=== PATIENT | male | born 1930 | race Caucasian/White ===

== ENCOUNTER 2017-03-02 09:16 | Observation (INO) | payer MEDICARE ==
[2017-03-02 09:55] LABS: #Eosinphils 0.1 thou/uL (0.0-0.7); #Lymphocytes 2.3 thou/uL (1.20-3.40); #Monocytes 0.7 thou/uL (0.11-0.59); #Neutrophils 5.7 thou/uL (1.40-6.50); %Basophils 0.1 % (0.0-1.0); %Eosinophils 0.8 % (0.0-10.0); %Monocytes 8.1 % (0.0-10.0); Hematocrit 37.8 % (42.0-52.0); Mean Platelet Volume 7.4 fL (7.4-10.4); Red Blood Cell (RBC) Count 4.03 mill/uL (4.70-6.10); White Blood Cell (WBC) Count 8.8 thou/uL (4.8-10.8)
[2017-03-02 10:06] LABS: Bilirubin Negative (Negative); Blood, Urine Moderate (Negative); Glucose, Urine (Dipstick) Negative (Negative); Ketone, Urine Negative (Negative); Nitrite Negative (Negative); Protein, Urine (Dipstick) Trace mg/dL (Neg-Trace); Urobilinogen 0.2 mg/dL (0.2-1.0)
[2017-03-02 10:09] LABS: Bacteria/HPF 1+ HPF (None Seen); Hyaline Casts/LPF 0-3 HYALINE CAST LPF (0-3 Hyaline); Squamous Epithelial 0-3 HPF (0-3)
[2017-03-02 10:13] LABS: Lactic Acid - Sepsis 1.5 mmol/L (0.5-2.2)
[2017-03-02 10:17] LABS: ALT (SGPT) 10 U/L (8-55); AST (SGOT) 16 U/L (5-34); Alkaline Phosphatase 75 U/L (40-150); Anion Gap 13 mmol/L (10-20); BUN (Urea Nitrogen) 25 mg/dL (8.4-25.7); Bilirubin, Total 0.9 mg/dL (0.2-1.2); Calc. Creatinine Clearance 0 mL/min (70-130); Carbon Dioxide 23 mmol/L (23-31); Chloride 106 mmol/L (98-107); Estimated GFR-MDRD 35; Globulin 3.1 g/dL (2.4-3.5); Protein, Total 6.9 g/dL (5.8-8.1)
[2017-03-02 10:20] LABS: Yeast-All Forms None Seen HPF (None Seen)
--- NOTE | 2017-03-02 10:29 | RAD ---
CHEST 1 VIEW: Date: 03/02/17 HISTORY: Cough. COMPARISON: Chest 2 views dated 10/21/16. FINDINGS: Heart size is mildly enlarged. Mild prominence of the pulmonary interstitium. Moderate vascular calc ifications of the aorta. No pneumothorax or large effusion. IMPRESSION: Mild pulmonary venous congestion and lung hypoinflation. POS: [facility]
[2017-03-02 10:39] LABS: PTT 42.1 SEC (22.9-36.1); Prothrombin Time 30.3 SEC (12.0-14.7)
[2017-03-02 10:44] LABS: Troponin I 0.014 ng/mL (< 0.028)
[2017-03-02] MEDS ORDERED: cefTRIAXone\\ROCEPHIN 1 GM VIAL ONE (12:07)
[2017-03-02] MEDS ORDERED: Sodium Chloride 0.9% 100 ML ONE (12:07)
[2017-03-02] MEDS ORDERED: Azithromycin 500 MG VIAL ONE (12:50)
[2017-03-02 14:27] LABS: Troponin I Less than 0.010 ng/mL (< 0.028)
[2017-03-02 16:44] LABS: Troponin I 0.016 ng/mL (< 0.028)
[2017-03-02 17:28] VITALS: BMI 31.5
[2017-03-02] MEDS ORDERED: HumaLOG 300 UNITS/3 ML VIAL SC PRN ×2 (18:04)
[2017-03-02] MEDS ORDERED: Ondansetron ODT 4 MG TAB PO PRN (18:04)
[2017-03-02] MEDS ORDERED: Ondansetron HCl/PF 4 MG/2 ML Vial IVP PRN (18:04)
[2017-03-02] MEDS ORDERED: Dextrose 50% Abboject 50 ML SYRINGE SLOW IVP PRN (18:04)
[2017-03-02] MEDS ORDERED: Benzonatate 100 MG CAP PO PRN (18:04)
[2017-03-02] MEDS ORDERED: cloNIDine HCl 0.1 MG TAB PO PRN (18:04)
[2017-03-02] MEDS ORDERED: Dextrose 5% in Water 1,000 ML IV PRN (18:04)
[2017-03-02] MEDS ORDERED: Acetaminophen 500 MG TAB PO PRN (18:04)
[2017-03-02] MEDS ORDERED: FLU VACC TS2017-18 (>65YR) 0.5 ML SYRINGE IM ONE (18:15)
[2017-03-02] MEDS: Famotidine 20 MG TAB PO SCH (20:58)
[2017-03-02] MEDS: HYDROcodone/Acetaminophen 10/325 mg Tablet PO PRN (20:58)
--- NOTE | 2017-03-03 00:06 | HP ---
DATE OF ADMISSION: 03/02/2017 PRIMARY CARE PHYSICIAN: Dr. Kai Mackey. CHIEF COMPLAINT: Cough and shortness of breath. HISTORY OF PRESENT ILLNESS: This is an 87-year-old male, who presents to [facility] complaining of persistent cough, congestion, subjective fever and rigors over the last 2-3 weeks. The patient admits to increased cough, which is intermittently productive of yellow sputum with some associated neck pain when coughing. The patient does admit to some chest pain wit h the cough lasting only a few seconds during the cough. The patient states he was admitted in 09/16 and diagnosed with an acute bronchitis, treated with antibiotic therapy with improvement in symp toms. The patient denies any current tobacco use and states he quit smoking more than 10 years prio r to this evaluation. The patient denies receiving the influenza vaccination for this season and st ates his pneumonia vaccination is current. The patient denied any specific known sick contacts or f amily members with similar symptoms. The patient states he used several [id number] remedies a t home for relief; however, the coughing and congestion with subjective fever persisted. The patien t states the last time he felt this way he was diagnosed with pneumonia. The patient reports overal l general weakness, fatigue, and decreased exercise tolerance. In the emergency room, the patient u nderwent general evaluation including chest imaging showing pulmonary vascular prominence without ob vious infiltrate. The patient received IV Rocephin and Zithromax as well as 250 mL of normal saline . The patient was transferred to the telemetry unit for further evaluation. PAST MEDICAL HISTORY: 1. Cardiomyopathy with ejection fraction of 45% to 50%. 2. Chronic kidney disease, stage 3. 3. Diabetes mellitus, type 2. 4. History of gout. 5. Hypertension. 6. Chronic atrial fibrillation with chronic anticoagulation with Coumadin. 7. Coronary artery disease. 8. Diabetic peripheral neuropathy. 9. Gastroesophageal reflux disease. 10. Benign prosthetic hyperplasia. 11. Chronic low back pain. 12. Dyslipidemia. 13. History of bone cancer, status post chemotherapy. 14. History of deep venous thrombosis. PAST SURGICAL HISTORY: 1. Status post lumbar laminectomy. 2. Status post appendectomy. 3. Status post colon resection. 4. Status post coronary artery bypass grafting. 5. Status post shoulder repair. CURRENT MEDICATIONS: Based on previous discharge summary 09/2016. 1. Allopurinol 300 mg p.o. daily. 2. Enteric coated aspirin 81 mg 1 tab p.o. daily. 3. Diazepam 10 mg p.o. at bedtime. 4. Colace 200 mg p.o. b.i.d. 5. Proscar 5 mg p.o. at bedtime. 6. Lasix 40 mg 1 tab p.o. daily. 7. Gabapentin 600 mg p.o. b.i.d. 8. [place] 5/325 mg 1 tab p.o. q.6 hours p.r.n. pain. 9. Protonix 40 mg 1 tab p.o. daily. 10. Crestor 10 mg p.o. at bedtime. 11. Flomax 0.4 mg p.o. at bedtime. 12. Coenzyme Q10 of 100 mg p.o. at bedtime. 13. Coumadin 2.5 mg daily. We will confirm with the patient and family exact schedule. 14. Glucotrol 5 mg 1 tablet p.o. daily. ALLERGIES: SULFA. FAMILY HISTORY: No inheritable diseases per patient report. SOCIAL HISTORY: The patient is , accompanied by his of 63 years. Resides in the [facility]. Formerly used tobacco, quitting more than 10 years prior to this evaluation. No alcohol or illicit drug use. REVIEW OF SYSTEMS: The following complete review of systems was negative, unless otherwise mentione d in the HPI or below: Constitutional: Weight loss or gain, ability to conduct usual activities. Skin: Rash, itching. Eyes: Double vision, pain. ENT/Mouth: Nose bleeding, neck stiffness, pain, tenderness. Cardiovascular: Palpitations, dyspnea on exertion, orthopnea. Respiratory: Shortness of breath, wheezing, cough, hemoptysis, fever or night sweats. Gastrointestinal: Poor appetite, abdominal pain, heartburn, nausea, vomiting, constipation, or diar lorraine. Genitourinary: Urgency, frequency, dysuria, nocturia. Musculoskeletal: Pain, swelling. Neurologic/Psychiatric: Anxiety, depression. Allergy/Immunologic: Skin rash, bleeding tendency. PHYSICAL EXAMINATION: VITAL SIGNS: On admission, blood pressure 106/56, pulse 73, respiratory rate 18, temperature 97.8 degrees Fahrenheit, O2 saturation 97% on 2 liters per minute by nasal cannula. GENERAL APPEARANCE: This is an 87-year-old male, appearing younger than stated age. Aler t and oriented x3, pleasant, in no acute distress. HEENT: Pupils are equal, round, and reactive to light and accommodation. Extraocular muscles are i ntact. No scleral icterus, no conjunctival injection. Nares patent. OP is clear. NECK: Supple, no cervical adenopathy, no thyromegaly, no carotid bruits, no JVD appreciated. Cervi parag spine with full active and passive range of motion. CHEST: Lungs sound diminished in the bases bilaterally. CARDIOVASCULAR: S1, S2 with irregular rate and rhythm. ABDOMEN: Obese, soft, nontender, nondistended. Bowel sounds are positive in all four quadrants. T here is no hepatosplenomegaly, no abdominal bruits, no rebound or guarding appreciated. EXTREMITIES: Warm and dry with fair turgor. No clubbing, cyanosis or asymmetric edema appreciated. Pulses palpable distally at the dorsalis pedis, posterior tibial, and popliteal arteries bilateral ly. Capillary refill less than 2 seconds. NEUROLOGIC: Cranial nerves II-XII are grossly intact. No focal or lateralizing signs appreciated. PERTINENT LABORATORY AND X-RAY FINDINGS: Sodium 138, potassium 4.1, chloride 106, CO2 of 23, BUN 25 , creatinine 1.86 with estimated GFR of 35, glucose 114, lactic acid level 1.5, calcium 9.0, magnesi um 2.1. LFTs within normal limits. BNP 264, troponin I negative x2. CBC showed a white blood cell count of 8.8, hemoglobin 12.6, hematocrit 37.8, platelet count 131 with normal differential. PT 30 .3, INR 2.8. Urinalysis dated 03/02/2017 showed moderate blood, large leukocyte esterase with great er than 50 to too numerous to count wbc's per high powered field. Influenza A and B antigen dated 1 negative. Portable chest x-ray dated 03/02/2017 showed mild pulmonary vascular prominence and hypoventilation. EKG dated 03/02/2017 by my interpretation shows atrial fibrillation with cont rolled rate. Low voltage tracing noted. Normal axis. No acute ST-T wave changes appreciated. ASSESSMENT AND PLAN: 1. Acute bronchitis with questionable early pneumonia. The patient will be observed on the telemet ry unit. No clear evidence of infiltrate on initial chest imaging. We will continue Rocephin 1 gra m IV q.24 hours with additional Zithromax 500 mg IV q.24 hours. Blood cultures x2 pending. Broncho dilator support. Oxygen as needed to keep O2 saturations greater than or equal to 90%. 2. Chronic kidney disease, stage 3. Avoid nephrotoxic agents and contrast media. Repeat creatinin e and monitor overall renal function. 3. Diabetes mellitus, type 2. Resume home diabetic regimen. Insulin sliding scale for reflexive c overage. Accu-Cheks before meals and at bedtime. ADA diet. 4. Chronic atrial fibrillation with controlled rate on chronic Coumadin therapy. We will continue daily PT/INR. Continue to monitor on the telemetry unit. Hold current Coumadin given INR 2.8. 5. Prophylaxis. Sequential compression devices while in bed. Pepcid 20 mg p.o. b.i.d. Influenza vaccination prior to discharge. 6. Code status is FULL. Surrogate medical decision maker is patient's spouse.
[2017-03-03 06:28] LABS: Prothrombin Time 31.7 SEC (12.0-14.7)
[2017-03-03 06:46] LABS: Anion Gap 10 mmol/L (10-20); BUN (Urea Nitrogen) 23 mg/dL (8.4-25.7); Calc. Creatinine Clearance 44 mL/min (70-130); Calcium 8.6 mg/dL (7.8-10.44); Carbon Dioxide 27 mmol/L (23-31); Chloride 108 mmol/L (98-107); Estimated GFR-MDRD 38
[2017-03-03 06:54] LABS: Band 8 % (5-11); Mean Platelet Volume 7.7 fL (7.4-10.4); Neutrophil 41 % (42-75); Red Blood Cell (RBC) Count 3.36 mill/uL (4.70-6.10); White Blood Cell (WBC) Count 7.7 thou/uL (4.8-10.8)
[2017-03-03] MEDS: Famotidine 20 MG TAB PO SCH ×2 (09:55→21:41)
[2017-03-03] MEDS: HYDROcodone/Acetaminophen 10/325 mg Tablet PO PRN ×2 (10:03→21:41)
[2017-03-03] MEDS ORDERED: cefTRIAXone\\ROCEPHIN 1 GM in Sodium Chloride 0.9% 100 ML IVPB SCH (11:00)
[2017-03-03] MEDS: cefTRIAXone\\ROCEPHIN 1 GM, Admixture Fee 1 EACH in Sodium Chloride 0.9% 100 ML IVPB SCH (11:53)
--- NOTE | 2017-03-03 11:53 | PDOC.PN ---
- Subjective Encounter Start Date: 03/03/17 Encounter Start Time: 11:45 Subjective: f/u for suspected PNA and dyspnea. Feels a little better this am with -: productive cough. No documented fever. Receiving Rocephin and Zithromax - Objective Resuscitation Status: Resuscitation Status FULL:Full Resuscitation MAR Reviewed: Yes Vital Signs & Weight: Vital Signs (12 hours) Temp Pulse Resp BP Pulse Ox 03/03/17 09:25 97.6 F 85 18 03/03/17 05:55 98.6 F 99 112/58 L 98 Weight Weight 219 lb 12.814 oz I&O: 03/02/17 03/03/17 03/04/17 06:59 06:59 06:59 Intake Total 500 Output Total 620 Balance -120 Result Diagrams: 03/03/17 05:52 03/03/17 05:52 Additional Labs: Accuchecks 03/03/17 03/02/17 05:52 20:16 POC Glucose 97 166 H Microbiology 03/02/17 10:16 Nasal swab Influenza Types A,B Direct EIA - Final 03/02/17 09:48 Venous blood - Left Arm Blood Culture - Preliminary Specimen has been received and culture in progress. No Growth to date. 03/02/17 09:40 Venous blood - Right Arm Blood Culture - Preliminary Specimen has been received and culture in progress. No Growth to date. 03/02/17 09:28 Urine voided Urine Culture - Preliminary Laboratory Tests 03/02/17 03/03/17 09:48 05:52 INR 2.8 2.9 EKG Reviewed by me: Yes (Tele - A-fib in 60's) Phys Exam - Physical Examination Constitutional: NAD HEENT: PERRLA, oral pharynx no lesions Neck: no JVD, supple diminished in bases Cardiovascular: irregular Gastrointestinal: soft, non-tender, no distention, positive bowel sounds Musculoskeletal: no edema, pulses present Neurological: normal sensation, moves all 4 limbs Psychiatric: A&O x 3 Skin: normal turgor, cap refill <2 seconds Dx/Plan (1) Pneumonia Code(s): J18.9 - PNEUMONIA, UNSPECIFIED ORGANISM Status: Suspected Qualifiers: Laterality: bilateral Comment: suspected pneumonia(mild) with gm + cocci, continue Rocephin and Zithromax, blood cx neg x 2 (2) Acute bronchitis Code(s): J20.9 - ACUTE BRONCHITIS, UNSPECIFIED Status: Acute Qualifiers: Bronchitis organism: unspecified organism Qualified Code(s): J20.9 - Acute bronchitis, unspecified Comment: See above, supportive (3) Chronic anticoagulation Code(s): Z79.01 - RETIREMENT (CURRENT) USE OF ANTICOAGULANTS Status: Chronic Comment: INR 2.9, hold Coumadin x 24h and repeat INR in am (4) Chronic atrial fibrillation Code(s): I48.2 - CHRONIC ATRIAL FIBRILLATION Status: Chronic Comment: Rate controlled, continue tele monitoring (5) Diabetes type 2, controlled Code(s): E11.9 - TYPE 2 DIABETES MELLITUS WITHOUT COMPLICATIONS Status: Chronic Comment: ISS, serial accuchecks (6) CKD (chronic kidney disease) stage 3, GFR 30-59 ml/min Code(s): N18.3 - CHRONIC KIDNEY DISEASE, STAGE 3 (MODERATE) Status: Chronic Comment: Stable, baseline renal function, avoid nephrotoxic agents and limit contrast exposure - Plan plan discussed w/ family, continue antibiotics, social economist, respiratory therapy, out of bed/ambulate, DVT proph w/SCDs Stable overall -: Continue IV Rocephin and Zithromax another 24h -: Continue pulmonary supportive measures -: Hold Coumadin another 24h -: Update Pneumovax and Influenza vax * Am lab: PT/INR * Home in am
[2017-03-03] MEDS ORDERED: Azithromycin 500 MG in Sodium Chloride 0.9% 250 ML 250 ML IVPB SCH (12:00)
[2017-03-04] MEDS: HYDROcodone/Acetaminophen 10/325 mg Tablet PO PRN (05:59)
[2017-03-04 06:52] LABS: Prothrombin Time 21.9 SEC (12.0-14.7)
[2017-03-04 09:00] VITALS: BP 109/58; TEMP 97.5
[2017-03-04] MEDS: Famotidine 20 MG TAB PO SCH (09:00)
[2017-03-04] MEDS: cefTRIAXone\\ROCEPHIN 1 GM, Admixture Fee 1 EACH in Sodium Chloride 0.9% 100 ML IVPB SCH (12:51)
--- NOTE | 2017-03-04 15:23 | DIS ---
DATE OF ADMISSION: 03/02/2017 DATE OF DISCHARGE: 03/04/2017 DISCHARGE DIAGNOSES: 1. Question of early pneumonia/bronchitis with gram-positive cocci. 2. Urinary tract infection with Enterococcus. 3. Chronic atrial fibrillation with chronic anticoagulation with Coumadin. 4. Diabetes mellitus, type 2, stable. 5. Chronic kidney disease, stage 3. CONSULTATIONS: None. PERTINENT LAB AND X-RAY FINDINGS: Creatinine ranged between 1.71-1.86 with estimated GFR ranging be tween 35-38. Magnesium 2.1. LFTs within normal limits. BNP 264. CBC showed a white blood cell co unt ranging between 7.7-8.8, hemoglobin ranged between 10.6-12.6. INR ranged between 1.9-2.9. Urin e culture dated 03/02/2017 showed greater than 100,000 colonies of Enterococcus species. Blood cult ures x2 from 03/02/2017 showed no growth to date. Influenza A and B antigen, 03/02/2017, negative. Portable chest x-ray dated 03/02/2017 showed mild pulmonary venous prominence. HOSPITAL COURSE: Patient was observed after initially presenting with increased cough, shortness of breath, and concern for early pneumonia in the context of acute bronchitis. The patient was initia leanne on IV Rocephin and Zithromax and given general oxygen supplementation. The patient was also not ed with a urine culture positive for Enterococcus species, treated throughout the hospital course wi th Rocephin and Zithromax. The patient overall remained clinically stable and improved symptomatica lly with supportive measures. The patient transitioned and was maintaining O2 saturations in the mi d 90% range on room air without oxygen requirement. Overall, patient remained clinically stable thr oughout the hospital course and ready for discharge on 03/04/2017. DISCHARGE MEDICATIONS: 1. Allopurinol 300 mg one tablet p.o. daily. 2. Enteric-coated aspirin 81 mg 1 tab p.o. daily. 3. Valium 10 mg p.o. at bedtime p.r.n. 4. Colace 200 mg 1 tablet p.o. b.i.d. 5. Finasteride 5 mg p.o. at bedtime. 6. Lasix 40 mg 1 tablet p.o. daily. 7. Gabapentin 600 mg p.o. b.i.d. 8. [place] 10/325 mg 1 tablet p.o. q.6 hours p.r.n. pain. 9. Levaquin 250 mg 1 tablet p.o. daily x7 days. 10. Protonix 40 mg 1 tablet p.o. daily. 11. Crestor 10 mg p.o. at bedtime. 12. Flomax 0.4 mg p.o. at bedtime. 13. Coenzyme Q10 100 mg p.o. at bedtime. 14. Coumadin 5 mg on Thursday and Thursday and 2.5 mg on Thursday, Thursday, , Thursday, and . 15. Glipizide 5 mg 1 tablet p.o. daily. 16. Mucinex 600 mg p.o. q.12 hours p.r.n. FOLLOWUP: Patient will follow up with his primary care provider, Dr. Kai Mackey within 7 days of discharge. CONDITION ON DISCHARGE: Stable. ACTIVITY: Ad elly. DIET: Heart healthy and ADA. CODE STATUS: Full. DISPOSITION: Home, 03/04/2017.
== END 2017-03-04 11:39 | disposition home or self-care (01) ==
LOC: ERS 09:16 → 2NO 13:42
PROVIDERS: ADMIT Family Medicine; ATTEND Family Medicine
DX: R05 Cough (principal); R06.02 Shortness of breath; N39.0 Urinary tract infection, site not specified; B95.2 Enterococcus as the cause of diseases classified elsewhere; E11.22 Type 2 diabetes mellitus with diabetic chronic kidney disease; I12.9 Hypertensive chronic kidney disease with stage 1 through stage 4 chronic kidney disease, or unspecified chronic kidney disease; N18.3 Chronic kidney disease, stage 3 (moderate); I42.9 Cardiomyopathy, unspecified; M10.9 Gout, unspecified; I48.2 Chronic atrial fibrillation; I25.10 Atherosclerotic heart disease of native coronary artery without angina pectoris; E11.42 Type 2 diabetes mellitus with diabetic polyneuropathy; K21.9 Gastro-esophageal reflux disease without esophagitis; E78.5 Hyperlipidemia, unspecified; Z88.2 Allergy status to sulfonamides; Z79.01 Long term (current) use of anticoagulants; Z79.899 Other long term (current) drug therapy; Z90.49 Acquired absence of other specified parts of digestive tract; Z95.1 Presence of aortocoronary bypass graft; Z98.890 Other specified postprocedural states; Z92.3 Personal history of irradiation
CPT/HCPCS: 71010; 80048; 80053; 82553; 82962 ×3; 83605; 83735; 83880; 84484 ×2; 85007; 85025; 85027; 85610 ×3; 85730; 87040; 87077; 87086; 87186; 87804 ×2; 93005; 96365; 96367; 96376; 99285; G0378; 36415; 36416; 81003; 81015; J0456; J0696; J7050

== ENCOUNTER 2017-05-01 07:38 | Outpatient (CLI) | payer MEDICARE ==
--- NOTE | 2017-05-01 10:34 | ULT ---
BILATERAL RENAL ULTRASOUND: Date: 05/01/17 HISTORY: Urinary tract infection. Neurogenic bladder. COMPARISON: None. FINDINGS: Right kidney measures 9.4 x 5.3 x 5.2 cm. Left kidney measures 8.9 x 4.8 x 5.2 cm. There are bilateral renal cysts. Right interpolar cyst extending to the renal sinus fat is 3.3 cm. In the superior pole of the left kidney is a 3.6 cm cyst and in the inferior pole of the left kidney is a 2.4 cm cyst. The bladder wall is mildly trabeculated. The pre-void urinary volume in the bladder is 153 mL and pos t-void is 113 mL. No hydronephrosis or abnormal mass. IMPRESSION: 1. Bilateral renal cysts. 2. Small bilateral kidneys suggest medical renal disease. 3. Poor voiding of the urinary bladder. 4. Likely enlarged prostate. POS: [facility]
== END 2017-05-01 07:39 | disposition home or self-care (01) ==
LOC: ULT 07:38
PROVIDERS: ATTEND Urology
DX: N39.0 Urinary tract infection, site not specified (principal); N28.1 Cyst of kidney, acquired
CPT/HCPCS: 76770

== ENCOUNTER 2017-06-27 10:16 | Emergency (ER) | payer MEDICARE ==
--- NOTE | 2017-06-27 11:25 | RAD ---
PORTABLE AP CHEST: Date: 06/27/17 HISTORY: Dyspnea. Shaking. Runny nose and congestion. COMPARISON: 03/02/17. FINDINGS: Postsurgical changes related to CABG are noted. Cardiac silhouette is magnified by projection, but is enlarged. There is mild atelectasis at the left lung base. The lungs are otherwise clear. Pulmonary vasculature is within normal limits. Vascular calcifications are seen in the thoracic aorta. There samuels s been no interval change from prior exam. IMPRESSION: 1. No acute cardiopulmonary process. 2. Mild cardiomegaly. POS: [facility]
[2017-06-27 11:36] LABS: #Lymphocytes 2.5 thou/uL (1.20-3.40); #Monocytes 0.9 thou/uL (0.11-0.59); #Neutrophils 5.9 thou/uL (1.40-6.50); %Basophils 0.3 % (0.0-1.0); %Eosinophils 0.5 % (0.0-10.0); %Lymphocytes 26.4 % (21.0-51.0); %Monocytes 10.1 % (0.0-10.0); %Neutrophils 62.7 % (42.0-75.0); Hemoglobin 12.6 g/dL (14.0-18.0); Mean Corpuscular HGB CONC 34.8 g/dL (32.0-36.0); Mean Corpuscular Hemoglobin 31.5 pg (27.0-31.0); Mean Corpuscular Volume 90.4 fl (80.0-94.0); Mean Platelet Volume 8.2 fL (7.4-10.4); Platelet Count 140 thou/uL (130-400); RBC Distribution Width 15.1 % (11.5-14.5); White Blood Cell (WBC) Count 9.3 thou/uL (4.8-10.8)
[2017-06-27 12:00] LABS: ALT (SGPT) 9 U/L (8-55); AST (SGOT) 16 U/L (5-34); Alkaline Phosphatase 69 U/L (40-150); Anion Gap 15 mmol/L (10-20); BUN (Urea Nitrogen) 27 mg/dL (8.4-25.7); Bilirubin, Total 0.8 mg/dL (0.2-1.2); Calc. Creatinine Clearance 0 mL/min (70-130); Calcium 9.2 mg/dL (7.8-10.44); Carbon Dioxide 23 mmol/L (23-31); Chloride 105 mmol/L (98-107); Estimated GFR-MDRD 33; Globulin 3.1 g/dL (2.4-3.5); Glucose 120 mg/dL (83-110); Potassium 4.5 mmol/L (3.5-5.1); Protein, Total 7.1 g/dL (5.8-8.1); Sodium 138 mmol/L (136-145)
[2017-06-27] MEDS ORDERED: Acetaminophen 500 MG TAB ONE (12:54)
[2017-06-27] MEDS ORDERED: Ondansetron HCl/PF 4 MG/2 ML Vial ONE (12:54)
[2017-06-27 16:11] LABS: Bilirubin Small (Negative); Blood, Urine Negative (Negative); Clarity CLOUDY (Clear); Glucose, Urine (Dipstick) Negative (Negative); Leukocyte Moderate (Negative); Nitrite Negative (Negative); Protein, Urine (Dipstick) Negative (Neg-Trace); Specific Gravity, Urine 1.019 (1.002-1.036)
[2017-06-27 16:13] LABS: Bacteria/HPF 1+ HPF (None Seen); Hyaline Casts/LPF 0-3 HYALINE CAST LPF (0-3 Hyaline); Pathc Cast-AUWi Flag 0.13 (0-2.49); WBC/HPF 21-50 HPF (0-3)
== END 2017-06-27 17:06 | disposition home or self-care (01) ==
LOC: ERS 10:16
DX: B34.9 Viral infection, unspecified (principal); I48.91 Unspecified atrial fibrillation; I25.10 Atherosclerotic heart disease of native coronary artery without angina pectoris; E11.40 Type 2 diabetes mellitus with diabetic neuropathy, unspecified; K21.9 Gastro-esophageal reflux disease without esophagitis; N40.0 Benign prostatic hyperplasia without lower urinary tract symptoms; I50.9 Heart failure, unspecified; Z87.891 Personal history of nicotine dependence; Z86.718 Personal history of other venous thrombosis and embolism; Z79.899 Other long term (current) drug therapy; Z79.84 Long term (current) use of oral hypoglycemic drugs; Z79.82 Long term (current) use of aspirin
CPT/HCPCS: 36415; 71045; 80053; 81003; 81015; 82550; 83605; 85025; 87040; 87077; 87086; 87186; 87804; 94760; 96361; 96374; J2405

== ENCOUNTER 2017-12-15 05:47 | Day surgery (SDC) | payer MEDICARE ==
[2017-12-07 17:12] VITALS: BMI 30.7
[2017-12-15] MEDS ORDERED: Dexamethasone 4 mg/ml Vial ONE (06:31)
[2017-12-15] MEDS ORDERED: cefTRIAXone\\ROCEPHIN 1 GM VIAL ONE (06:31)
[2017-12-15] MEDS ORDERED: Sodium Chloride 0.9% 100 ML ONE (06:31)
[2017-12-15] MEDS ORDERED: Fentanyl 100 MCG/2 ML VIAL ONE (06:35)
[2017-12-15 06:45] LABS: Prothrombin Time 13.6 SEC (12.0-14.7)
[2017-12-15] MEDS ORDERED: Furosemide 20 MG/2 ML VIAL ONE (07:15)
[2017-12-15] MEDS ORDERED: B & O ONE (07:20)
[2017-12-15] MEDS ORDERED: Ondansetron HCl/PF 4 MG/2 ML Vial ONE (13:17)
[2017-12-15] MEDS ORDERED: PROPOFOL 200 MG/20 ML VIAL ONE (13:17)
[2017-12-15] MEDS ORDERED: PHENYLEPHRINE-NS 100 MCG/ML 10 ML SYRINGE ONE (13:17)
[2017-12-15] MEDS ORDERED: Lidocaine 1% PF 5 ML VIAL ONE (13:17)
--- NOTE | 2017-12-15 15:52 | OP ---
DATE OF PROCEDURE: 12/15/2017 PREOPERATIVE DIAGNOSES: Benign prostatic hypertrophy with urinary tract infections. POSTOPERATIVE DIAGNOSES: Benign prostatic hypertrophy with urinary tract infections. PROCEDURE: GreenLight laser vaporization of the prostate using 253,565 joules. COMPLICATIONS: No complications. SPECIMEN: Minimal prostate chips. ESTIMATED BLOOD LOSS: Minimal blood loss. DRAINS: Drain remaining was a 20-Micronesian 2-way. FINDINGS: Adequate stream and the scope was removed at the end of the case. INDICATIONS: The patient is an 87-year-old gentleman who was followed in the office for BPH, attempting maximum medical therapy; however, he had persistent UTIs and so was set up for definitive prostate therapy. PROCEDURE IN DETAIL: The patient was brought into the room by Anesthesia, laid on the table in supine position. After obtaining general anesthetic, his legs were placed in lithotomy position and his perineum was prepped and draped in sterile fashion. Using a 22.5 Micronesian cystoscope with 30-degree lens, urethra was traversed and the bladder inspected. The ureteral orifices were noted in normal position and preserved throughout the case. The middle lobe was not significantly obstructed, but the lateral lobes were, however, the middle lobe was still elevated somewhat and this was taken down to the bladder neck and then there was an elevated trigonal ridge that was also taken down to the bladder floor. A power of 80 was used to do this and a power of 80 was used in the lateral lobes at the bladder neck, but a power level of 180 was used for the mid gland where the lateral lobes were partially enucleated, but there was minimal tissue for sending and once this was taken all the way down to the veru , all the standing chips were removed and inspection was taken of the cellules in the posterior wall to ensure there were no further chips remaining there. With the bladder decompressed, hemostasis was achieved and a power of 80 was used in the prostatic bed for further hemostasis. The scope was removed and 20 Micronesian catheter was then placed to gravity and secured. The patient tolerated the procedure well and was then awakened and transferred to PACU in stable condition. [facility]
== END 2017-12-15 12:15 | disposition home or self-care (01) ==
LOC: SDC 05:47
PROVIDERS: ATTEND Urology
PROC: 0V507ZZ Destruction of Prostate, Via Natural or Artificial Opening (ICD-10-PCS; principal; 2017-12-15)
DX: N40.1 Benign prostatic hyperplasia with lower urinary tract symptoms (principal); R35.1 Nocturia; E11.9 Type 2 diabetes mellitus without complications; J44.9 Chronic obstructive pulmonary disease, unspecified; K21.9 Gastro-esophageal reflux disease without esophagitis; I11.0 Hypertensive heart disease with heart failure; I50.9 Heart failure, unspecified; I25.10 Atherosclerotic heart disease of native coronary artery without angina pectoris; E78.5 Hyperlipidemia, unspecified; Z87.440 Personal history of urinary (tract) infections; Z87.891 Personal history of nicotine dependence; Z88.2 Allergy status to sulfonamides; Z88.1 Allergy status to other antibiotic agents; Z79.82 Long term (current) use of aspirin; Z79.899 Other long term (current) drug therapy
CPT/HCPCS: 36415; 85610; 88305; 93005; 93010; J0696; J1100; J1940; J2001; J2405; J2704; J3010; J7050

== ENCOUNTER 2017-12-29 09:15 | Outpatient (CLI) | payer MEDICARE ==
[2017-12-29] MEDS ORDERED: ISOVUE-370 76%-LOCM 1 ML ONE (13:52)
== END 2017-12-29 09:16 | disposition home or self-care (01) ==
LOC: BICCT 09:15 → CT 09:16
PROVIDERS: ATTEND Family Medicine
DX: R91.8 Other nonspecific abnormal finding of lung field (principal); I51.7 Cardiomegaly
CPT/HCPCS: 71260

== ENCOUNTER 2018-02-25 09:45 | Outpatient (CLI) | payer MEDICARE ==
--- NOTE | 2018-02-25 13:18 | ULT ---
ABDOMINAL ULTRASOUND: HISTORY: Abdominal pain and renal failure. The patient also reports a history of bone marrow cancer. FINDINGS: This exam is technically limited due to body habitus. The gallbladder is difficult to visualize but appears normal in size. No signs of gallstones. Visualized liver parenchyma shows no focal abnormal ities. The common duct measures 3 mm. The spleen is partially obscured. It measures 13.5 cm in shanda gth. The left kidney shows cortical thinning. It measures 10.3 cm in size. There is an upper pole left r enal cyst measuring 3.8 cm. The right kidney also shows a cyst measuring 3.1 x 4.2 cm. There is als o cortical thinning to the right kidney. It measures 9 cm. Some increased echogenicity to the renal parenchyma. Pancreas, abdominal aorta, and IVC regions are largely obscured. IMPRESSION: 1. Limited evaluation due to bowel gas and body habitus. 2. Bilateral renal cysts with cortical thinning involving both kidneys suggesting some increased ech ogenicity suggesting some underlying medical renal parenchymal disease. No evidence of obstruction. POS: RD
== END 2018-02-25 09:46 | disposition home or self-care (01) ==
LOC: ULT 09:45
PROVIDERS: ATTEND Internal Medicine Hematology & Oncology
DX: D47.2 Monoclonal gammopathy (principal); N28.1 Cyst of kidney, acquired
CPT/HCPCS: 76700

== ENCOUNTER 2018-03-12 12:41 | Outpatient (CLI) | payer MEDICARE ==
[~2018-03-12 12:41] MED LIST: Iopamidol 370 76% 100 ML VIAL ONE
--- NOTE | 2018-03-12 18:29 | CT ---
CT OF THE ABDOMEN AND PELVIS WITH CONTRAST: Comparison: None. History: Bloating with anemia and fatigue for months. Painful urination and hematuria. Technique: Multiple contiguous axial images were obtained in a CT of the abdomen and pelvis with cont rast. PO contrast was administered. Coronal reformats were performed. FINDINGS: There are hypodensities in the kidneys measuring up to 3.6 in size which represents cysts. The liver, gallbladder, adrenal glands, spleen and pancreas are unremarkable. No free air, free fluid, or stran ding changes are seen in the abdomen or pelvis. There appears to be defect in the prostate, likely from previous transurethral resection of the prost ate. Scattered diverticula are seen in the colon. The small bowel and appendix are unremarkable. No a bdominal or pelvic lymphadenopathy are seen. Atherosclerotic calcifications are seen in the aorta. Degenerative changes and post-surgical changes are seen in the lumbar spine. A calcified granuloma is seen in the right lung base. The abdominal wall soft tissues are unremarkable. IMPRESSION: 1. Bilateral renal cysts. 2. Diverticulosis. POS: [facility]
== END 2018-03-12 12:42 | disposition home or self-care (01) ==
LOC: BICCT 12:41
PROVIDERS: ATTEND Internal Medicine Gastroenterology
DX: R14.0 Abdominal distension (gaseous) (principal); R53.83 Other fatigue; R53.81 Other malaise; N28.1 Cyst of kidney, acquired; D50.0 Iron deficiency anemia secondary to blood loss (chronic); K57.30 Diverticulosis of large intestine without perforation or abscess without bleeding; Z86.010 Personal history of colon polyps
CPT/HCPCS: 74177; 82565

== ENCOUNTER 2018-03-12 19:10 | Emergency (ER) | payer MEDICARE ==
[2018-03-12 19:46] LABS: Bilirubin Negative (Negative); Blood, Urine Large (Negative); Clarity CLEAR (Clear); Glucose, Urine (Dipstick) Negative (Negative); Leukocyte Large (Negative); Nitrite Negative (Negative); Protein, Urine (Dipstick) 30 mg/dL (Neg-Trace); Specific Gravity, Urine 1.018 (1.002-1.036); pH, Urine 6.5 (5.0-9.0)
[2018-03-12 19:49] LABS: Bacteria/HPF None Seen HPF (None Seen); Hyaline Casts/LPF 0-3 HYALINE CAST LPF (0-3 Hyaline); Pathc Cast-AUWi Flag 0.14 (0-2.49); RBC/HPF GREATER THAN 50-TNTC HPF (0-3); Squamous Epithelial 0-3 HPF (0-3)
[2018-03-12 19:54] LABS: #Eosinphils 0.1 thou/uL (0.0-0.7); #Monocytes 0.7 thou/uL (0.11-0.59); #Neutrophils 2.4 thou/uL (1.40-6.50); %Basophils 0.2 % (0.0-1.0); %Lymphocytes 38.5 % (21.0-51.0); %Monocytes 13.1 % (0.0-10.0); %Neutrophils 47.2 % (42.0-75.0); Hemoglobin 10.8 g/dL (14.0-18.0); Mean Corpuscular HGB CONC 33.8 g/dL (32.0-36.0); Mean Corpuscular Hemoglobin 31.9 pg (27.0-31.0); Mean Corpuscular Volume 94.2 fL (78.0-98.0); Mean Platelet Volume 7.6 fL (7.4-10.4); Platelet Count 130 thou/uL (130-400); RBC Distribution Width 15.8 % (11.5-14.5); Red Blood Cell (RBC) Count 3.41 mill/uL (4.70-6.10); White Blood Cell (WBC) Count 5.1 thou/uL (4.8-10.8)
[2018-03-12 19:59] LABS: INR-International Normal Ratio 2.6; PTT 38.2 SEC (22.9-36.1); Prothrombin Time 28.2 SEC (12.0-14.7)
[2018-03-12 20:14] LABS: ALT (SGPT) 13 U/L (8-55); AST (SGOT) 20 U/L (5-34); Albumin 3.6 g/dL (3.4-4.8); Alkaline Phosphatase 76 U/L (40-150); Anion Gap 11 mmol/L (10-20); BUN (Urea Nitrogen) 27 mg/dL (8.4-25.7); Bilirubin, Total 0.9 mg/dL (0.2-1.2); Calc. Creatinine Clearance 0 mL/min (70-130); Calcium 8.7 mg/dL (7.8-10.44); Carbon Dioxide 27 mmol/L (23-31); Chloride 104 mmol/L (98-107); Estimated GFR-MDRD 38; Globulin 2.8 g/dL (2.4-3.5); Glucose 112 mg/dL (83-110); Potassium 4.2 mmol/L (3.5-5.1); Protein, Total 6.4 g/dL (5.8-8.1); Sodium 138 mmol/L (136-145)
== END 2018-03-12 21:16 | disposition home or self-care (01) ==
LOC: ERS 19:10
DX: N39.0 Urinary tract infection, site not specified (principal); I50.9 Heart failure, unspecified; I48.91 Unspecified atrial fibrillation; K21.9 Gastro-esophageal reflux disease without esophagitis; Z86.718 Personal history of other venous thrombosis and embolism; Z79.01 Long term (current) use of anticoagulants; Z87.891 Personal history of nicotine dependence; Z79.82 Long term (current) use of aspirin; Z79.899 Other long term (current) drug therapy
CPT/HCPCS: 36415; 74177; 80053; 81001; 81015; 82565; 85025; 85610; 85730; 87086; 99283

== ENCOUNTER 2018-03-31 11:18 | Emergency (ER) | payer MEDICARE ==
[2018-03-31 12:04] LABS: #Lymphocytes 2.5 thou/uL (1.20-3.40); #Monocytes 0.6 thou/uL (0.11-0.59); #Neutrophils 2.1 thou/uL (1.40-6.50); %Basophils 0.4 % (0.0-1.0); %Eosinophils 0.9 % (0.0-10.0); %Lymphocytes 47.6 % (21.0-51.0); %Neutrophils 40.2 % (42.0-75.0); Hemoglobin 10.8 g/dL (14.0-18.0); Mean Corpuscular HGB CONC 32.9 g/dL (32.0-36.0); Mean Corpuscular Hemoglobin 32.2 pg (27.0-31.0); Mean Corpuscular Volume 98.2 fL (78.0-98.0); Mean Platelet Volume 8.1 fL (7.4-10.4); Platelet Count 137 thou/uL (130-400); RBC Distribution Width 16.4 % (11.5-14.5); Red Blood Cell (RBC) Count 3.36 mill/uL (4.70-6.10); White Blood Cell (WBC) Count 5.3 thou/uL (4.8-10.8)
[2018-03-31 12:11] LABS: PTT 37.9 SEC (22.9-36.1)
[2018-03-31 12:12] LABS: INR-International Normal Ratio 2.1; Prothrombin Time 23.4 SEC (12.0-14.7)
[2018-03-31 12:22] LABS: ALT (SGPT) 11 U/L (8-55); AST (SGOT) 17 U/L (5-34); Albumin 3.6 g/dL (3.4-4.8); Alkaline Phosphatase 71 U/L (40-150); Anion Gap 10 mmol/L (10-20); BUN (Urea Nitrogen) 28 mg/dL (8.4-25.7); Bilirubin, Total 0.8 mg/dL (0.2-1.2); Calc. Creatinine Clearance 0 mL/min (70-130); Calcium 8.6 mg/dL (7.8-10.44); Carbon Dioxide 28 mmol/L (23-31); Chloride 106 mmol/L (98-107); Estimated GFR-MDRD 32; Globulin 2.7 g/dL (2.4-3.5); Glucose 213 mg/dL (83-110); Potassium 4.2 mmol/L (3.5-5.1); Protein, Total 6.3 g/dL (5.8-8.1); Sodium 140 mmol/L (136-145)
--- NOTE | 2018-03-31 13:17 | ULT ---
RIGHT LOWER EXTREMITY VENOUS DOPPLER ULTRASOUND: 03/31/2018 HISTORY: Right lower extremity pain and swelling. Fall. Injury. COMPARISON: None. TECHNIQUE: Multiplanar estrada-scale sonographic imaging of the venous structures of the right lower extremity obta ined with color-flow and spectral analysis. FINDINGS: The right common femoral vein, greater saphenous vein, profunda femoral vein, femoral vein, and popli teal vein appear patent. The posterior tibial vein is patent as well. Please note that the distal-m ost aspect of the right femoral vein, just above the level of the knee, could not be assessed, as the femoral vein in this region cannot be visualized. Within the inferomedial aspect of the right thigh, there is a large heterogeneously hypoechoic lesion , suggesting a large hematoma within the soft tissues, measuring at least 8.1 x 7.2 x 3.5 cm. IMPRESSION: 1. No evidence for deep venous thrombosis of the right lower extremity; however, a portion of the ri ght femoral vein, distally, just above the knee, could not be assessed. 2. Large, complex, heterogeneously hypoechoic lesion within the medial aspect of the right thigh, wi thin the soft tissues. Primary consideration, given history, is a large soft tissue hematoma. Follo w-up imaging to document resolution is advised. This presumed hematoma measures at least 8.1 x 7.2 x 3.5 cm. Soft tissue mass cannot be excluded in the proper clinical setting. POS: [facility]
== END 2018-03-31 17:05 ==
LOC: ERS 11:18
DX: S70.11XA Contusion of right thigh, initial encounter (principal); E11.40 Type 2 diabetes mellitus with diabetic neuropathy, unspecified; K21.9 Gastro-esophageal reflux disease without esophagitis; N40.0 Benign prostatic hyperplasia without lower urinary tract symptoms; I48.91 Unspecified atrial fibrillation; I50.9 Heart failure, unspecified; Z87.891 Personal history of nicotine dependence; Z86.718 Personal history of other venous thrombosis and embolism; Z79.01 Long term (current) use of anticoagulants; Z79.899 Other long term (current) drug therapy; W19.XXXA Unspecified fall, initial encounter
CPT/HCPCS: 76882; 80053; 85025; 85610; 85730

== ENCOUNTER 2018-04-19 23:04 | Inpatient (IN) | payer MEDICARE ==
[2018-04-20 00:03] LABS: #Lymphocytes 2.2 thou/uL (1.20-3.40); #Monocytes 0.8 thou/uL (0.11-0.59); #Neutrophils 4.1 thou/uL (1.40-6.50); %Basophils 0.3 % (0.0-1.0); %Eosinophils 0.4 % (0.0-10.0); %Lymphocytes 31.2 % (21.0-51.0); %Monocytes 10.6 % (0.0-10.0); %Neutrophils 57.6 % (42.0-75.0); Hemoglobin 9.7 g/dL (14.0-18.0); Mean Corpuscular HGB CONC 34.3 g/dL (32.0-36.0); Mean Corpuscular Hemoglobin 33.5 pg (27.0-31.0); Mean Corpuscular Volume 97.8 fL (78.0-98.0); Platelet Count 152 thou/uL (130-400); RBC Distribution Width 16.5 % (11.5-14.5); White Blood Cell (WBC) Count 7.1 thou/uL (4.8-10.8)
[2018-04-20 00:22] LABS: ALT (SGPT) 14 U/L (8-55); AST (SGOT) 20 U/L (5-34); Albumin 3.3 g/dL (3.4-4.8); Alkaline Phosphatase 77 U/L (40-150); Anion Gap 11 mmol/L (10-20); BUN (Urea Nitrogen) 29 mg/dL (8.4-25.7); Bilirubin, Total 0.8 mg/dL (0.2-1.2); Calc. Creatinine Clearance 0 mL/min (70-130); Calcium 8.3 mg/dL (7.8-10.44); Carbon Dioxide 26 mmol/L (23-31); Chloride 107 mmol/L (98-107); Estimated GFR-MDRD 35; Globulin 2.8 g/dL (2.4-3.5); Glucose 103 mg/dL (83-110); Protein, Total 6.1 g/dL (5.8-8.1); Sodium 140 mmol/L (136-145)
[2018-04-20] MEDS ORDERED: Piperacillin/Tazobactam 4.5 GM VIAL ONE (00:39)
[2018-04-20 02:13] LABS: INR-International Normal Ratio 3.3; Prothrombin Time 33.6 SEC (12.0-14.7)
[2018-04-20 02:14] LABS: PTT 48.9 SEC (22.9-36.1)
[2018-04-20 06:01] LABS: Bilirubin Negative (Negative); Blood, Urine Moderate (Negative); Clarity CLEAR (Clear); Glucose, Urine (Dipstick) Negative (Negative); Leukocyte Small (Negative); Nitrite Negative (Negative); Protein, Urine (Dipstick) Negative (Neg-Trace); Specific Gravity, Urine 1.017 (1.002-1.036); pH, Urine 5.5 (5.0-9.0)
[2018-04-20 06:04] LABS: Bacteria/HPF None Seen HPF (None Seen); Hyaline Casts/LPF 0-3 HYALINE CAST LPF (0-3 Hyaline); Pathc Cast-AUWi Flag 0.29 (0-2.49); Squamous Epithelial 0-3 HPF (0-3)
[2018-04-20 06:16] LABS: Yeast-AUWi Flag 44.1 (0-25.0)
[2018-04-20 06:33] LABS: Yeast-All Forms None Seen HPF (None Seen)
[2018-04-20 07:44] VITALS: BMI 31.7
--- NOTE | 2018-04-20 07:52 | RAD ---
RIGHT FEMUR 2 VIEWS: HISTORY: Pain. COMPARISON: None. FINDINGS: No fracture. No cortical irregularity or periosteal reaction. Vascular calcifications are noted. IMPRESSION: No fracture. POS: [facility]
--- NOTE | 2018-04-20 08:13 | ULT ---
PRELIMINARY REPORT/[facility]/EMERGENTY AFTER-HOURS PROCEDURE Addendum created by Bc Calhoun MD on 04/20/2018 1:20 AM Central Time ([place] & [place]) THIS REPORT CONTAINS FINDINGS THAT MAY BE CRITICAL TO PATIENT CARE. The findings were verbally communicated via t elephone conference with Dr. Barriga at 1:20 AM ELECTRIC [employer]ATER on 04/20/2018. The findings were acknowledged and understood. Initial Report created on 04/20/2018 1:18 AM Central Time ([place] & [place]) US Bilateral Duplex Lower Extremity Veins EXAM DATE/TIME: 04/20/2018 12:23 AM CLINICAL HISTORY: 88 years old, male; Pain and signs and symptoms; Edema, localized; Lower extremity, bilateral; Leg, u pper; Right; Patient HX: PT fell one month ago and developed a large bruise on his inner right thigh. Additional info: HX; Previous dvt TECHNIQUE: Real-time duplex ultrasound of the Bilateral Lower Extremities with 2-D estrada scale, color Doppler cathie w and spectral waveform analysis. Complete exam focused on the bilateral lower extremity veins. COMPARISON: CT Lower Ext Rt WO Con 04/20/2018 12:10:35 AM FINDINGS: Right deep veins: Unremarkable. The common femoral, femoral and popliteal veins are patent without th rombus. Normal compressibility, augmentation response and Doppler waveforms. Right superficial veins: Saphenofemoral junction is patent without thrombus. Left deep veins: Partially compressible left proximal-mid left femoral vein with internal hypoechoic material consistent with thrombus. Left superficial veins: Saphenofemoral junction is patent without thrombus. Soft tissues: Hypoechoic 3.8 x 6 x 12.4 cm complex appearing fluid collection in medial right thigh s oft tissues. IMPRESSION: 1. Abnormal study - DVT in the left femoral vein as described above. 2. No evidence of deep venous thrombosis in the right lower extremity on current study. 3. Hypoechoic 3.8 x 6 x 12.4 cm complex appearing fluid collection in medial right thigh soft tissues . Consistent with suspected hematoma seen on prior study. Thank you for allowing us to participate in the care of your patient. Dictated and Authenticated by: Bc Calhoun MD 04/20/2018 1:18 AM Central Time ([place] & [place]) FINAL REPORT VENOUS DUPLEX SONOGRAM BILATERAL LOWER EXTREMITIES: DATE: 04/20/2018. TIME: Performed on an emergency basis at 0025 hours. HISTORY: Bilateral leg pain and edema. FINDINGS: Agree with the preliminary report by Dr. Cabezas from [facility]. DVT involves the left femor al vein. Good color and spectral Doppler flow within the deep venous structures of the right lower e xtremity. Complex fluid collection at the right medial thigh may represent a hematoma. POS: [facility]
--- NOTE | 2018-04-20 08:45 | RAD ---
SINGLE VIEW OF THE CHEST: Comparison: 06-27-17 History: Cough. FINDINGS: Single view of the chest shows an enlarged cardiomediastinal silhouette. The patient is status post C ABG. There is no evidence of consolidation, mass, or pleural effusion. IMPRESSION: Cardiomegaly without evidence of acute cardiopulmonary disease. POS: [facility]
--- NOTE | 2018-04-20 09:25 | CT ---
PRELIMINARY REPORT/[facility]/EMERGENTY AFTER-HOURS PROCEDURE CT Right Lower Extremity Without IV Contrast, Femur EXAM DATE/TIME: 04/20/2018 12:10 AM CLINICAL HISTORY: 88 years old, male; Pain and signs and symptoms; Swelling, leg or foot; Thigh; Right; Patient HX: Er 7; Possible necrotizing fasciitis; PT C/O RT lower extremity pain (thigh), redness and swelling. TECHNIQUE: CT of the Right lower extremity without intravenous contrast was performed. Exam focused on the femur . COMPARISON: No relevant prior studies available. FINDINGS: Bones/joints: Chronic degenerative changes of the right hip and knee. No evidence of acute fracture. Soft tissues: Ovoid 4 x 9 x 8 cm superior and 4.5 x 9 x 7 cm inferior hyperdense collections within t he medial mid-lower right thigh subcutaneous fat. Mild-moderate diffuse soft tissue swelling/edema. Vasculature: Chronic atherosclerotic calcification of the vasculature. IMPRESSION: 1. Ovoid 4 x 9 x 8 cm superior and 4.5 x 9 x 7 cm collections in medial right thigh subcutaneous fat as described above, suspected hematomas. 2. Mild-moderate diffuse soft tissue swelling/edema. No definite areas of air along the areas of black a. 3. No evidence of acute fracture. Thank you for allowing us to participate in the care of your patient. Dictated and Authenticated by: Bc Calhoun MD 04/20/2018 1:04 AM Central Time ([place] & [place]) FINAL REPORT CT OF THE RIGHT LEG WITHOUT COTNRAST: INDICATION: Right lower extremity pain, redness and swelling, concern for necrotizing fasciitis. FINDINGS: There is a large hyperdense hematoma suspected within the subcutaneous fat of the medial right thigh measuring 8.7 x 15.7 cm in its greatest AP and craniocaudad dimensions. Underlying mass within this region cannot be entirely excluded. Recommend correlation for any history of the patient being on bl ood thinners or trauma to this region. There is diffuse muscular atrophy of the right lower extremit y. There is reticulation involving the subcutaneous fat circumferentially of the mid to distal thigh . There is skin thickening involving the mid to distal thigh. No definite soft tissue gas is eviden t. There are vascular calcifications within the right leg. No acute osseous abnormality is evident. There is chondrocalcinosis and degenerative changes within the right knee. There is mild degenerat jake change of the right hip. There is prostate enlargement with bladder wall thickening. There is c olonic diverticulosis. IMPRESSION: 1. Findings most suspicious for hematoma within the subcutaneous tissues of the distal right thigh. Followup examination in 4-6 weeks with contrast may be helpful to document decrease in size and reso lution and also to exclude the presence of any underlying malignancy. 2. No tyson soft tissue gas is seen to suggest soft tissue infection. There is skin thickening and subcutaneous fat reticulation involving the mid to distal right thigh that is suspicious for either l ymphedema or cellulitis. 3. Scattered degenerative and osteoarthritic change. 4. Prostate enlargement with bladder wall thickening which can be related to cystitis or chronic siva dder outlet obstruction. 5. Colonic diverticulosis. POS: [facility]
[2018-04-20] MEDS ORDERED: hydrALAZINE 20 MG/ML VIAL SLOW IVP PRN (09:27)
[2018-04-20] MEDS ORDERED: traZODone HCl 50 MG TAB PO PRN (09:28)
[2018-04-20] MEDS ORDERED: Dextrose 5% in Water 1,000 ML IV PRN (09:30)
[2018-04-20] MEDS ORDERED: HumaLOG 300 UNITS/3 ML VIAL SC PRN ×2 (09:30)
[2018-04-20] MEDS ORDERED: Dextrose 50% Abboject 50 ML SYRINGE SLOW IVP PRN (09:30)
[2018-04-20] MEDS ORDERED: cefTRIAXone\\ROCEPHIN 1 GM in Sodium Chloride 0.9% 100 ML IVPB SCH (10:00)
[2018-04-20] MEDS ORDERED: VANCOMYCIN IVPB PRN (10:23)
[2018-04-20] MEDS: Acetaminophen 325 MG TAB PO PRN (10:37)
[2018-04-20] MEDS: Gabapentin 300 MG CAP PO SCH ×3 (15:15→21:30)
--- NOTE | 2018-04-20 15:32 | HP ---
PRIMARY CARE PHYSICIAN: Dr. Mackey. CHIEF COMPLAINT: Swelling in the right leg and fever. HISTORY OF PRESENT ILLNESS: Mr. Topete is a pleasant 88-year-old gentleman, who suffered an injury to his right leg recently, where he was leaning to grab something and then fell and injured his leg. He is on chronic anticoagulation due to previous pulmonary embolism and suffered a massive hematoma on the right leg as a result of the fall. He was placed in rehab and was treated. He had his Coumadin held for several days due to the hematoma and slowly improved over time. He was able to be released from rehab on or around the 10 of April and had gone home. When he suddenly started having swelling in the right lower extremity as well as shaking chills, the patient went to see their primary care physician and there was noted more firmness or induration on the right lower extremity and a low-grade temperature around 99, and for this reason, he was sent in to the ER for further evaluation. In the ER, they did a bilateral lower extremity venous Doppler and it showed findings consistent with a hematoma in the right leg as well as an acute partially occlusive deep vein thrombosis in the left leg and concerned for possible cellulitis of the right lower extremity, and he is being admitted for further treatment. The patient otherwise has stable shortness of breath as well as a mild chest pain which he says he normally has. He has had some cough off and on, productive of yellow and greenish mucus, but otherwise no other complaints. REVIEW OF SYSTEMS: All systems were reviewed and are negative except for that mentioned in the history of present illness. PAST MEDICAL HISTORY: Significant for pulmonary embolism, gout, chronic kidney disease, stage 3, atrial fibrillation, diabetes mellitus, chronic systolic heart failure, coronary artery disease, hepatitis, and gastroesophageal reflux disease. PAST SURGICAL HISTORY: He has had bypass 3-vessel, laminectomy, colon resection, orthopedic surgery of the shoulder, and transurethral resection of the prostate. FAMILY HISTORY: No history of any heritable diseases such as hypercoagulable state or pulmonary embolism. ALLERGIES: SULFA AND LEVOFLOXACIN. SOCIAL HISTORY: He is a former smoker. Denies any alcohol use or drug use. MEDICATIONS: His medications include Coumadin 5 mg daily, CoQ10 of 100 mg daily, trazodone 50 mg at bedtime, Crestor 20 mg daily, Protonix 40 mg at bedtime, [place] 10/325 one q.4 as needed, glipizide 5 mg daily, gabapentin 300 mg two tablets q.i.d., Lasix 40 mg daily, finasteride 5 mg daily, iron sulfate 325 mg daily, Colace 200 mg daily, Valium 10 mg at bedtime, aspirin 81 mg daily, and allopurinol 100 mg daily. PHYSICAL EXAMINATION: GENERAL: He is alert and oriented. He appears to be in no acute distress. VITAL SIGNS: Blood pressure 117/58, heart rate 88, respiratory rate of 18, temperature is 98.5, and O2 saturation was 93% on room air. HEENT: Pupils are equal, round, and reactive. Extraocular muscles are intact. His sclerae anicteric. Throat, no erythema, no exudates. NECK: No adenopathy. No bruits. LUNGS: He has coarse breath sounds bilaterally as well as some occasional rhonchi. No wheezing. No rales. CARDIOVASCULAR: His heart rate is irregular, slightly tachycardic. There is no evidence of any systolic or diastolic murmur. No rubs. ABDOMEN: Soft. It is nontender and nondistended. Positive for bowel sounds. No rebound. No guarding. EXTREMITIES: He had some erythema in the right calf as well as an area of induration in the medial right thigh, a fairly large area, there was some surrounding fluctuance. He has positive dorsalis pedis pulses bilaterally and some mild edema on the left, but no erythema. NEUROLOGIC: He is moving all extremities and his muscle strength appears intact. SKIN AND INTEGUMENT: He had the skin changes over the right medial thigh as previously mentioned, but no other rash. LABORATORY DATA: Sodium is 140, potassium 4.0, chloride is 107, CO2 is 26, BUN of 29, creatinine 1.83, glucose is 103. White blood cell count 7.1, hemoglobin 9.7, hematocrit is 28.4, platelet count is 152. INR is 1.3. Urinalysis; moderate blood and 11 to 20 wbc's. He had a chest x-ray, in which he had cardiomegaly, and in my reading, increase in pulmonary vascular markings, possible fluid in the right fissure. ASSESSMENT: 1. Cellulitis of the right lower extremity, we will continue broad-spectrum IV antibiotics. We will get an ultrasound of the medial thigh to rule out fluid collection and then if there is a fluid collection present, we will get Surgery for possible incision and drainage. 2. Deep venous thrombosis of the left lower extremity. I suspect this likely happened while he was off Coumadin when he was in inpatient rehab. I doubt that this was a deep venous thrombosis which occurred while therapeutic on Coumadin, and therefore, we will continue warfarin. The family was concerned about propagation of this clot and asked for a vascular surgery consult and for possible filter placement. Therefore, we will consult Vascular to see if he is a candidate for this. 3. Chronic atrial fibrillation. It appears as if his heart rate is controlled, and once again, we will continue Coumadin for deep venous thrombosis prophylaxis. 4. Coronary artery disease. This appears to be stable and will continue his usual medications and will also continue PT and OT. Job ID: [id number]
[2018-04-20] MEDS ORDERED: Phytonadione 10 MG/ML AMP PO SCH (17:30)
--- NOTE | 2018-04-20 18:04 | CON ---
DATE OF CONSULTATION: 04/20/2018 CHIEF COMPLAINT: Right leg hematoma. HISTORY OF PRESENT ILLNESS: This is an 88-year-old male, who fell last week and has a lot of swelling to the right lower extremity. The patient's family has noted extensive bruising and swelling. Developed fever and more pain overnight, seen in the emergency room, where a CT scan has revealed a couple of large areas of hematoma in the leg without gas. He has a normal white count, but he was admitted for presumed infection. The patient is on Coumadin for chronic atrial fibrillation. He has a history of pulmonary embolism as well, and he now has new left lower extremity DVT. PAST MEDICAL HISTORY: Includes pulmonary embolism, gout, chronic kidney disease with atrial fibrillation, CHF, CAD, hepatitis, and reflux. PAST SURGICAL HISTORY: CABG, laminectomy, colon resection, and TURP. ALLERGIES: SULFA AND LEVOFLOXACIN. SOCIAL HISTORY: Former smoker. No alcohol or other drug use. MEDICATIONS: 1. Coumadin. 2. Trazodone. 3. Crestor. 4. Protonix. 5. [place]. 6. Glipizide. 7. Gabapentin. 8. Lasix. 9. Finasteride. 10. Iron. 11. Colace. 12. Valium. 13. Allopurinol. PHYSICAL EXAMINATION: VITAL SIGNS: Blood pressure 100/59, pulse 76, respirations 20. He is afebrile here. CHEST: Clear. HEART: Regular rate. ABDOMEN: Soft and nontender. EXTREMITIES: Examination of lower extremity, there is no limb-threatening ischemia. There is some hardness along the leg with extensive bruising on the medial and posterior aspect. There is heat over the hematoma, but no bulla. No crepitance. No obvious fluctuance. LABORATORY DATA: White blood cell count is 7, hemoglobin 9.7, platelets are 152. Sodium is 140, potassium 4.0, creatinine 1.83. INR is 3.3. ASSESSMENT: 1. Right leg hematoma, questionable infection. 2. New left lower extremity deep venous thrombosis. PLAN: Continue antibiotics. I do not recommend drainage at this time. Drainage procedure would unfortunately leave him with two large open wounds, that would require extensive wound care, wound VAC for months. Obviously, if his clinical status does not improve, we may be forced to do that, but we will start just by antibiotics. Job ID: [id number]
[2018-04-20] MEDS: HYDROcodone/Acetaminophen 5/325 mg Tablet PO PRN (18:45)
[2018-04-20] MEDS ORDERED: Vancomycin HCl 1 GM in Premix Bag 1 BAG IVPB SCH (21:00)
[2018-04-20] MEDS: Ubidecarenone 50 MG CAP PO SCH (21:31)
[2018-04-20] MEDS: Rosuvastatin 20 MG TAB PO SCH (21:31)
[2018-04-20] MEDS ORDERED: Vancomycin HCl 1.5 GM in Sodium Chloride 0.9% 250 ML 300 ML IVPB SCH (23:59)
--- NOTE | 2018-04-21 02:08 | CON ---
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 This is causing him considerable discomfort and swelling in the right leg. He was seen in the emergency room for the hematoma of his right leg and found to have a partially occlusive venous thrombus in the left thigh which actually may have been present on previous venous ultrasound prior year. In any event, he was admitted to the hospital with an INR of 3.3. PAST MEDICAL HISTORY: Includes atrial fibrillation, for which he is on chronic anticoagulation. He may have had DVT and pulmonary embolus in the past; however, the family is not sure about this. He has chronic kidney disease with a creatinine of 1.8. Diabetes mellitus, previous coronary artery bypass grafting, and previous diagnosis of hepatitis. PAST SURGICAL HISTORY: Includes coronary artery bypass grafting, laminectomy, colon resection, surgical procedure on his shoulder, and transurethral resection of his prostate. ALLERGIES: TO SULFA AND LEVOFLOXACIN. MEDICATIONS: Include; 1. Coumadin. 2. Crestor. 3. Trazodone. 4. Protonix. 5. Aspirin. 6. Glipizide. 7. Gabapentin. 8. Finasteride. 9. Lasix. 10. Colace. 11. Valium. 12. Allopurinol. PHYSICAL EXAMINATION: GENERAL: On examination, he is an elderly gentleman, in no distress. LUNGS: Clear to auscultation anteriorly, although he does have a moist cough. CARDIAC: Reveals an irregular rhythm. ABDOMEN: Soft and nontender. EXTREMITIES: He has no swelling in his left leg. His right leg has a large hematoma on the medial aspect of the right thigh that resulted in significant tenderness throughout examination of his right leg. I did not appreciate any cellulitis. At this time, after reviewing his CT scan, I think that incision and drainage of the hematoma with placement of a drain would be appropriate for relief of pain as well as helping to resolve his edema. I have discussed this with the patient and , and informed consent has been obtained. Job ID: [id number]
[2018-04-21 04:08] LABS: #Eosinphils 0.1 thou/uL (0.0-0.7); #Lymphocytes 1.6 thou/uL (1.20-3.40); #Monocytes 0.4 thou/uL (0.11-0.59); #Neutrophils 1.4 thou/uL (1.40-6.50); %Basophils 0.2 % (0.0-1.0); %Eosinophils 2.5 % (0.0-10.0); %Lymphocytes 45.4 % (21.0-51.0); %Monocytes 11.8 % (0.0-10.0); %Neutrophils 40.1 % (42.0-75.0); Hemoglobin 9.1 g/dL (14.0-18.0); Mean Corpuscular HGB CONC 33.9 g/dL (32.0-36.0); Mean Corpuscular Hemoglobin 33.8 pg (27.0-31.0); Mean Corpuscular Volume 99.9 fL (78.0-98.0); Platelet Count 122 thou/uL (130-400); RBC Distribution Width 16.5 % (11.5-14.5); Red Blood Cell (RBC) Count 2.69 mill/uL (4.70-6.10); White Blood Cell (WBC) Count 3.6 thou/uL (4.8-10.8)
[2018-04-21 04:11] LABS: INR-International Normal Ratio 2.2; Prothrombin Time 24.1 SEC (12.0-14.7)
[2018-04-21 04:30] LABS: Anion Gap 11 mmol/L (10-20); BUN (Urea Nitrogen) 21 mg/dL (8.4-25.7); Calc. Creatinine Clearance 47 mL/min (70-130); Calcium 8.5 mg/dL (7.8-10.44); Carbon Dioxide 25 mmol/L (23-31); Chloride 109 mmol/L (98-107); Estimated GFR-MDRD 42; Glucose 136 mg/dL (83-110); Potassium 4.2 mmol/L (3.5-5.1); Sodium 141 mmol/L (136-145)
[2018-04-21] MEDS ORDERED: Heparin 5,000 UNITS/ML VIAL ONE (06:23)
[2018-04-21] MEDS ORDERED: Protamine Sulfate 50 MG/5 ML VIAL ONE (06:23)
[2018-04-21] MEDS ORDERED: Bupivacaine HCl 0.5%/Epinephrine 1:200,000/PF 30 ml Vial ONE (06:23)
[2018-04-21] MEDS ORDERED: Fentanyl 100 MCG/2 ML VIAL ONE ×2 (06:50→08:57)
[2018-04-21] MEDS ORDERED: Promethazine HCl 25 MG/ML VIAL IM PRN (08:26)
[2018-04-21] MEDS ORDERED: Ondansetron HCl/PF 4 MG/2 ML Vial IVP PRN (08:26)
[2018-04-21] MEDS: Allopurinol 100 MG TAB PO SCH (09:57)
[2018-04-21] MEDS: Ferrous Sulfate 325 MG TAB PO SCH (09:57)
[2018-04-21] MEDS: glipiZIDE 5 MG TAB PO SCH (09:57)
[2018-04-21] MEDS: Finasteride 5 MG TAB PO SCH (09:58)
[2018-04-21] MEDS: Aspirin 81 mg Enteric Coated Tablet PO SCH (09:58)
[2018-04-21] MEDS: Docusate 100 MG CAP PO SCH (09:58)
[2018-04-21] MEDS: Gabapentin 300 MG CAP PO SCH ×4 (09:58→20:21)
[2018-04-21] MEDS: HYDROcodone/Acetaminophen 10/325 mg Tablet PO PRN ×2 (10:05→18:09)
--- NOTE | 2018-04-21 11:42 | PQF ---
DATE: 04-21-18 ATTN: DR. DIALLO DERAS Please exercise your independent, professional judgment in responding to the clarification form. Clinical indicators are provided on the bottom of this form for your review Please check appropriate box(s): [ ] UTI please specify if due to or related to (as applicable): [ ] Contaminated urine specimen without UTI [ x] Other diagnosis Cellulitis of right leg [ ] Unable to determine In addition, please specify: Present on Admission (POA): [ X] Yes [ ] No [ ] Unable to determine For continuity of documentation, please document condition throughout progress notes and discharge summary. Thank You. CLINICAL INDICATORS - SIGNS / SYMPTOMS / LABS URINE: 04-20-18: URINE BLOOD: MODERATE H UR LEUKOCYTE ESTERASE: SMALL H URINE RBC: 7-10 H URINE WBC: 11-20 H TEMP: ER: 100.8, 100.2 RISK FACTORS: ER: DISCHARGED FROM REHAB, HX CHF, A FIB, DM, DVT, UT, FORMER SMOKER TREATMENT: ER: ZOSYN IV, IVF NS, VANCOMYCIN IV (This form is maintained as a part of the permanent medical record) 2014 [employer], [employer]. All Rights Reserved [email or web address] Office: [phone] [facility]ITAL[facility]uan
[2018-04-21] MEDS: Acetaminophen 325 MG TAB PO PRN (12:21)
--- NOTE | 2018-04-21 15:06 | PDOC.PN ---
- Subjective Encounter Start Date: 04/21/18 Encounter Start Time: 14:30 Mr. Topete was seen today in follow-up of hematoma, and cellulitis of the right leg. He does not have any complaints today. He says he feels less pressure in his leg since the surgery. - Objective Resuscitation Status - Order Detail: 04/20/18 09:18 Resuscitation Status Routine Resuscitation Status: DNAR: NO Resuscitation Discussed with: patient MAR Reviewed: Yes Vital Signs & Weight: Vital Signs (12 hours) Temp Pulse Resp BP Pulse Ox 04/21/18 12:19 94 20 97 04/21/18 11:53 99.9 F H 109 H 20 101/56 L 96 04/21/18 09:39 97 04/21/18 09:37 98.2 F 121 H 18 115/69 97 04/21/18 06:33 96 04/21/18 04:00 97.9 F 102 H 22 H 114/57 L 96 Weight Weight 221 lb I&O: 04/20/18 04/21/18 04/22/18 06:59 06:59 06:59 Intake Total 540 300 Output Total 300 Balance 240 300 Result Diagrams: 04/21/18 03:19 04/21/18 03:19 Additional Labs: Accuchecks 04/21/18 04/20/18 04/20/18 10:44 20:19 16:38 POC Glucose 144 H 163 H 112 H Phys Exam - Physical Examination Respiratory: no wheezing, no rales, no rhonchi, clear to auscultation bilateral Cardiovascular: RRR, no significant murmur, no rub Gastrointestinal: soft, non-tender, no distention, positive bowel sounds Musculoskeletal: pulses present + edema of the right lower extremity, and mild erythema Neurological: non-focal Dx/Plan (1) Cellulitis of right leg Code(s): L03.115 - CELLULITIS OF RIGHT LOWER LIMB Status: Acute (2) Hematoma of right lower extremity Code(s): S80.11XA - CONTUSION OF RIGHT LOWER LEG, INITIAL ENCOUNTER Status: Acute (3) Deep vein thrombosis of left lower extremity Code(s): I82.402 - ACUTE EMBOLISM AND THOMBOS UNSP DEEP VEINS OF L LOW EXTREM Status: Acute (4) Atrial fibrillation Code(s): I48.91 - UNSPECIFIED ATRIAL FIBRILLATION Status: Acute (5) Diabetes type 2, controlled Code(s): E11.9 - TYPE 2 DIABETES MELLITUS WITHOUT COMPLICATIONS Status: Chronic Comment: ISS, serial accuchecks (6) Hypertension Code(s): I10 - ESSENTIAL (PRIMARY) HYPERTENSION Status: Chronic - Plan * Cellulitis of the right lower extremity- continue Rocephin and Vancomycin * Likely can begin de-escalating antibiotics in a day or two * Right leg Hematoma- This has been evacuated. * AFIB- his heart rate has overall been stable * HTN- blood pressure is stable * DM- blood glucose is stable * Will need to continue PT/OT- I suspect he may need a stay in Rehab prior to going home.
--- NOTE | 2018-04-21 16:23 | OP ---
DATE OF PROCEDURE: 04/21/2018 PREOPERATIVE DIAGNOSIS: Right thigh hematoma. POSTOPERATIVE DIAGNOSIS: Right thigh hematoma. PROCEDURE PERFORMED: Incision and drainage of right thigh hematoma. DESCRIPTION OF PROCEDURE: After adequate anesthesia had been obtained, the patient was prepped and draped. Incision was made over the fluctuant area. After entering the area, large amount of clot, probably 350 mL was evacuated. The cavity extended proximally and distally, and the incision was carried out more proximally and further clot was removed. The area was thoroughly irrigated. At that time, it was felt that the cavity was probably too large to effectively treat with closure and drainage, and for this reason, a wound VAC was then placed after obtaining good hemostasis. The patient tolerated the procedure well. Job ID: [id number]
[2018-04-21] MEDS ORDERED: Ondansetron PF 4 MG/2 ML Vial ONE (16:35)
[2018-04-21] MEDS ORDERED: PROPOFOL 200 MG/20 ML VIAL ONE (16:35)
[2018-04-21] MEDS ORDERED: PHENYLEPHRINE-NS 100 MCG/ML 10 ML SYRINGE ONE (16:35)
[2018-04-21] MEDS ORDERED: Warfarin Sodium 2.5 MG TAB PO SCH (17:00)
[2018-04-21] MEDS: Warfarin Sodium 2.5 MG TAB PO SCH (17:26)
[2018-04-21] MEDS: Ubidecarenone 50 MG CAP PO SCH (20:21)
[2018-04-21] MEDS: Rosuvastatin 20 MG TAB PO SCH (20:21)
[2018-04-22] MEDS: HYDROcodone/Acetaminophen 5/325 mg Tablet PO PRN ×6 (00:01→22:42)
[2018-04-22 05:01] LABS: #Eosinphils 0.1 thou/uL (0.0-0.7); #Lymphocytes 1.8 thou/uL (1.20-3.40); #Monocytes 0.5 thou/uL (0.11-0.59); #Neutrophils 1.6 thou/uL (1.40-6.50); %Basophils 0.6 % (0.0-1.0); %Eosinophils 3.3 % (0.0-10.0); %Lymphocytes 43.5 % (21.0-51.0); %Monocytes 12.3 % (0.0-10.0); %Neutrophils 40.4 % (42.0-75.0); Hemoglobin 8.7 g/dL (14.0-18.0); Mean Corpuscular HGB CONC 33.4 g/dL (32.0-36.0); Mean Corpuscular Hemoglobin 33.3 pg (27.0-31.0); Mean Corpuscular Volume 99.8 fL (78.0-98.0); Platelet Count 126 thou/uL (130-400); RBC Distribution Width 16.5 % (11.5-14.5); Red Blood Cell (RBC) Count 2.59 mill/uL (4.70-6.10)
[2018-04-22 05:02] LABS: INR-International Normal Ratio 1.3; Prothrombin Time 15.8 SEC (12.0-14.7)
[2018-04-22] MEDS ORDERED: Warfarin Sodium 5 MG TAB PO SCH (07:15)
[2018-04-22] MEDS: glipiZIDE 5 MG TAB PO SCH (08:29)
[2018-04-22] MEDS: Ferrous Sulfate 325 MG TAB PO SCH (08:29)
[2018-04-22] MEDS: Docusate 100 MG CAP PO SCH (08:29)
[2018-04-22] MEDS: Aspirin 81 mg Enteric Coated Tablet PO SCH (08:29)
[2018-04-22] MEDS: Allopurinol 100 MG TAB PO SCH (08:29)
[2018-04-22] MEDS: Finasteride 5 MG TAB PO SCH (08:30)
[2018-04-22] MEDS: Gabapentin 300 MG CAP PO SCH ×4 (08:30→21:17)
--- NOTE | 2018-04-22 14:56 | PDOC.PN ---
- Subjective Encounter Start Date: 04/22/18 Encounter Start Time: 11:00 Mr. Topete was seen today in follow-up of cellulitis and hematoma of the right leg. He says he had an episode of chest pain this morning. It only lasted a short while. It was also noted that around this same time, his heart rate was elevated. - Objective Resuscitation Status - Order Detail: 04/20/18 09:18 Resuscitation Status Routine Resuscitation Status: DNAR: NO Resuscitation Discussed with: patient MAR Reviewed: Yes Vital Signs & Weight: Vital Signs (12 hours) Temp Pulse Resp BP Pulse Ox 04/22/18 11:57 99.6 F 88 20 102/57 L 96 04/22/18 08:16 94 L 04/22/18 08:13 76 20 98 04/22/18 08:00 97.7 F 103 H 20 140/73 100 04/22/18 07:20 98 04/22/18 04:00 98.4 F 85 19 108/57 L 99 Weight Weight 221 lb I&O: 04/21/18 04/22/18 04/23/18 06:59 06:59 06:59 Intake Total 540 940 300 Output Total 300 100 Balance 240 840 300 Result Diagrams: 04/22/18 04:25 04/21/18 03:19 Additional Labs: Accuchecks 04/22/18 04/22/18 04/21/18 10:30 05:59 20:16 POC Glucose 156 H 128 H 153 H 04/21/18 16:39 POC Glucose 173 H Phys Exam - Physical Examination HEENT: PERRLA Respiratory: no wheezing, no rales, clear to auscultation bilateral + occasional rhonchi Cardiovascular: no significant murmur, no rub, irregular Gastrointestinal: soft, non-tender, no distention, positive bowel sounds Musculoskeletal: edema present + induration in the medial thigh, and mild erythema, the calf of the right is mildy erythematous, mild warmth Neurological: non-focal Dx/Plan (1) Atrial fibrillation Code(s): I48.91 - UNSPECIFIED ATRIAL FIBRILLATION Status: Acute (2) Cellulitis of right leg Code(s): L03.115 - CELLULITIS OF RIGHT LOWER LIMB Status: Acute (3) Hematoma of right lower extremity Code(s): S80.11XA - CONTUSION OF RIGHT LOWER LEG, INITIAL ENCOUNTER Status: Acute (4) Deep vein thrombosis of left lower extremity Code(s): I82.402 - ACUTE EMBOLISM AND THOMBOS UNSP DEEP VEINS OF L LOW EXTREM Status: Acute (5) Diabetes type 2, controlled Code(s): E11.9 - TYPE 2 DIABETES MELLITUS WITHOUT COMPLICATIONS Status: Chronic Comment: ISS, serial accuchecks (6) Hypertension Code(s): I10 - ESSENTIAL (PRIMARY) HYPERTENSION Status: Chronic - Plan * Atrial fibrillation- his heart rate is now elevated- will Give a dose of IV Cardizem, re-evaluate * Cellulitis- there is still a significant amount of erythema of the calf, and mid thigh- will continue IV antibiotics a few more days * HTN- blood pressure has been stable * DM- blood glucose is stable. * DVT- countine coumadin, and if INR is not therapeutic tomorrow, will begin bridge therapy * Continue PT/OT
[2018-04-22] MEDS: Acetaminophen 325 MG TAB PO PRN (15:23)
[2018-04-22] MEDS: Warfarin Sodium 2.5 MG TAB PO SCH (16:43)
[2018-04-22] MEDS ORDERED: Enoxaparin Sodium 100 MG/ML SYRINGE SC SCH (17:00)
[2018-04-22] MEDS: Rosuvastatin 20 MG TAB PO SCH (21:16)
[2018-04-22] MEDS: Ubidecarenone 50 MG CAP PO SCH (21:16)
[2018-04-23 05:22] LABS: INR-International Normal Ratio 1.3; Prothrombin Time 16.6 SEC (12.0-14.7)
--- NOTE | 2018-04-23 06:33 | CON ---
DATE OF CONSULTATION: 04/22/2018 TYPE OF CONSULTATION: Cardiology PRIMARY VEGETABLE LOADER: Dr. Augustine Yost. REASON FOR CONSULTATION: AFib with RVR. HISTORY OF PRESENT ILLNESS: Mr. Topete is a pleasant 88-year-old white gentleman who comes to the hospital for issues with his legs. He had a fall and developed a large hematoma on his thigh. 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 He had his Coumadin stopped and underwent rehab; this was all around at the end of March. He was released from rehab on 10 of April, went home. Noticed sudden swelling of the right lower extremity as well as chills. He had a low-grade temperature, went to the ER, where he had a bilateral lower extremity ultrasound that showed partially occlusive deep venous thrombosis on the left leg, which is not the leg that had the hematoma and he had the hematoma on the right leg. He underwent incision and drainage of the hematoma on the right leg with wound VAC placement afterwards and that leg actually is doing much better. The edema has decreased, still there, but much improved and the pain is also improved. This morning, he developed a sudden onset of a band-like pain in his mid precordium. He immediately went tachycardic with heart rates in the 170s, which have since gotten much better. His pain improved after about an hour and his heart rate also has decreased in the last few hours. He denies any more episodes of chest pain, tightness, or pressure. He does have a history of coronary artery disease with previous bypass. PAST MEDICAL HISTORY: 1. Pulmonary embolisms in the past. 2. DVTs in the past. 3. Chronic kidney disease stage 3. 4. Atrial fibrillation, chronic. 5. Type 2 diabetes. 6. Systolic heart failure, last evaluation showed an EF of 45% to 50%. 7. Coronary artery disease, as above. 8. Hepatitis. 9. GERD. PAST SURGICAL HISTORY: 1. 3-vessel bypass several years back. 2. Laminectomy. 3. Colon resection. 4. Orthopedic surgery of the shoulder. 5. TURP. 6. Incision and drainage of his right groin hematoma recently. FAMILY HISTORY: Noncontributory. SOCIAL HISTORY: Former smoker. Denies alcohol or drug use. No smoking recently. MEDICATIONS: Outpatient medications include: 1. Trazodone. 2. Ferrous sulfate. 3. Docusate. 4. Diazepam. 5. Aspirin 81 a day. 6. Allopurinol. 7. Hydrocodone p.r.n. 8. Gabapentin. 9. Lasix 40 mg a day. 10. Finasteride. 11. Crestor 20 mg nightly. 12. Pantoprazole. 13. Warfarin. 14. CoQ10. 15. Glipizide. ALLERGIES: LEVOFLOXACIN AND SULFA DRUGS. REVIEW OF SYSTEMS: A 12-point review of systems was done and was found to be negative other than stated in the history of present illness. PHYSICAL EXAMINATION: VITAL SIGNS: Temperature 98.7, pulse 79, respiratory rate 20, saturating 94% on room air, and blood pressure 109/59. GENERAL: Awake, alert, and oriented x3, in no distress. HEENT: Normocephalic and atraumatic. NECK: Supple. LUNGS: Clear. CARDIOVASCULAR: , irregularly irregular heart rate, in the 70s currently. ABDOMEN: Soft. Positive bowel sounds. EXTREMITIES: 2+ edema in the right leg. Trace edema in the left leg. SKIN: Warm and dry. LABORATORY DATA: Laboratory work was reviewed. His CBC with a white count of 4, hemoglobin of 8.7, hematocrit of 25, platelet count of 126. Coags with INR of 3.3 on the 3rd, 2.2 yesterday, 1.3 today. Chemistry with a creatinine of 1.56, down from 1.83. UA; moderate blood, small leukocyte estrace, 7 to 10 red cells, 11 to 20 white cells. Venous ultrasound was reviewed. ASSESSMENT AND PLAN: 1. Chest pain. 2. Atrial fibrillation with rapid ventricular response, rate controlled again. This is in the setting of chronic atrial fibrillation. 3. History of coronary artery disease. 4. Possible lower extremity cellulitis. 5. 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 PLAN: 1. The DVT found on the ultrasound has been there before and certainly not an acute process; however, he may have developed a worsening thrombus burden that embolized to the lung causing him to have chest pain and giving him rapid ventricular rates with his AFib. His pain is better and his RVR is actually better now, rate controlled on his same home medications. High suspicion is for acute pulmonary embolism. Creatinine is a little bit high, would prefer to avoid any contrast load at this time. I spoke with Dr. Rayo about the possibility of either restarting full anticoagulation versus putting an IVC filter. He feels comfortable with restarting full anticoagulation with Lovenox as it can be reversed quicker than with any other new NOACs. At this point, we will plan on giving one dose of subcu Lovenox full at 100 mg; this is a 1 mg/kg dose tonight, see how he does in the morning. We will continue wound VAC and we will avoid changing the dressings as this may make his leg ooze. 2. We will get an echocardiogram to see if we can see the right side of his heart. 3. Dr. Yost, his primary tank worker, will see in the morning. Job ID: [id number]
[2018-04-23] MEDS: glipiZIDE 5 MG TAB PO SCH (08:23)
[2018-04-23] MEDS: HYDROcodone/Acetaminophen 10/325 mg Tablet PO PRN ×2 (09:38→17:23)
[2018-04-23] MEDS: Docusate 100 MG CAP PO SCH ×2 (09:39→20:43)
[2018-04-23] MEDS: Finasteride 5 MG TAB PO SCH (09:39)
[2018-04-23] MEDS: Gabapentin 300 MG CAP PO SCH ×4 (09:40→20:43)
[2018-04-23] MEDS: Aspirin 81 mg Enteric Coated Tablet PO SCH (09:41)
[2018-04-23] MEDS: Ferrous Sulfate 325 MG TAB PO SCH (09:41)
[2018-04-23] MEDS: Allopurinol 100 MG TAB PO SCH (09:41)
[2018-04-23] MEDS: HYDROcodone/Acetaminophen 5/325 mg Tablet PO PRN (12:43)
[2018-04-23] MEDS ORDERED: Warfarin Sodium 5 MG TAB PO SCH (17:00)
[2018-04-23] MEDS: Warfarin Sodium 2.5 MG TAB PO SCH (17:23)
--- NOTE | 2018-04-23 17:32 | PDOC.PN ---
- Subjective Encounter Start Date: 04/23/18 Encounter Start Time: 11:30 Mr. Topete was seen today in follow-up cellulitis of the right lower extremity, and DVT of the left leg. He says he feels ok today. He is less short of breath today, and denies having any chest pain. - Objective Resuscitation Status - Order Detail: 04/20/18 09:18 Resuscitation Status Routine Resuscitation Status: DNAR: NO Resuscitation Discussed with: patient MAR Reviewed: Yes Vital Signs & Weight: Vital Signs (12 hours) Temp Pulse Pulse Pulse Pulse Resp BP 04/23/18 15:50 98.5 F 83 16 109/56 L 04/23/18 13:13 89 16 04/23/18 11:46 98.6 F 89 16 110/59 L 04/23/18 08:45 04/23/18 08:15 133 H 103 H 121 H 04/23/18 08:00 98.4 F 92 16 136/63 04/23/18 07:59 04/23/18 07:54 87 16 Pulse Ox 04/23/18 15:50 95 04/23/18 13:13 04/23/18 11:46 95 04/23/18 08:45 97 04/23/18 08:15 04/23/18 08:00 97 04/23/18 07:59 95 04/23/18 07:54 Weight Weight 221 lb I&O: 04/22/18 04/23/18 04/24/18 06:59 06:59 06:59 Intake Total 940 600 820 Output Total 100 200 685 Balance 840 400 135 Result Diagrams: 04/22/18 04:25 04/21/18 03:19 Additional Labs: Accuchecks 04/23/18 04/23/18 04/22/18 10:36 05:48 20:16 POC Glucose 110 118 H 128 H Phys Exam - Physical Examination HEENT: PERRLA Respiratory: no wheezing, no rales, no rhonchi, clear to auscultation bilateral Cardiovascular: RRR, no significant murmur, no rub Gastrointestinal: soft, non-tender, no distention, positive bowel sounds Musculoskeletal: pulses present, edema present much less induration in the medial thigh, and mild erythema and swelling in the calf Neurological: non-focal, moves all 4 limbs Dx/Plan (1) Atrial fibrillation Code(s): I48.91 - UNSPECIFIED ATRIAL FIBRILLATION Status: Acute (2) Cellulitis of right leg Code(s): L03.115 - CELLULITIS OF RIGHT LOWER LIMB Status: Acute (3) Hematoma of right lower extremity Code(s): S80.11XA - CONTUSION OF RIGHT LOWER LEG, INITIAL ENCOUNTER Status: Acute (4) Deep vein thrombosis of left lower extremity Code(s): I82.402 - ACUTE EMBOLISM AND THOMBOS UNSP DEEP VEINS OF L LOW EXTREM Status: Acute (5) Diabetes type 2, controlled Code(s): E11.9 - TYPE 2 DIABETES MELLITUS WITHOUT COMPLICATIONS Status: Chronic Comment: ISS, serial accuchecks (6) Hypertension Code(s): I10 - ESSENTIAL (PRIMARY) HYPERTENSION Status: Chronic - Plan * AFIB with RVR- his heart rate is better today- Cardiology input appreciated- will check an Echo to see if he has RV strain * Will bridge coumadin with full dose Lovenox * HTN- blood pressure is controlled * DM- blood glucose is stable * Continue IV antibiotics for cellulitis * Monitor INR carefully, once therapeutic discontinue Lovenox
[2018-04-23] MEDS: Enoxaparin Sodium 100 MG/ML SYRINGE SC SCH (20:43)
[2018-04-23] MEDS: Rosuvastatin 20 MG TAB PO SCH (20:43)
[2018-04-23] MEDS: Ubidecarenone 50 MG CAP PO SCH (20:43)
[2018-04-24] MEDS: HYDROcodone/Acetaminophen 5/325 mg Tablet PO PRN (01:51)
[2018-04-24 05:48] LABS: Platelet Count 135 thou/uL (130-400)
[2018-04-24 06:14] LABS: INR-International Normal Ratio 1.4; Prothrombin Time 17.1 SEC (12.0-14.7)
[2018-04-24] MEDS: glipiZIDE 5 MG TAB PO SCH (09:14)
[2018-04-24] MEDS: Finasteride 5 MG TAB PO SCH (09:14)
[2018-04-24] MEDS: Gabapentin 300 MG CAP PO SCH ×4 (09:14→20:01)
[2018-04-24] MEDS: Docusate 100 MG CAP PO SCH ×2 (09:14→20:02)
[2018-04-24] MEDS: Allopurinol 100 MG TAB PO SCH (09:14)
[2018-04-24] MEDS: Ferrous Sulfate 325 MG TAB PO SCH (09:14)
[2018-04-24] MEDS: Aspirin 81 mg Enteric Coated Tablet PO SCH (09:15)
[2018-04-24] MEDS: Enoxaparin Sodium 100 MG/ML SYRINGE SC SCH ×2 (09:15→20:02)
--- NOTE | 2018-04-24 15:25 | PDOC.PN ---
- Subjective Encounter Start Date: 04/24/18 Encounter Start Time: 11:00 Mr. Topete was seen today in follow-up. He says he feels ok, but not as good as yesterday. He does not have any specific complaints. - Objective Resuscitation Status - Order Detail: 04/20/18 09:18 Resuscitation Status Routine Resuscitation Status: DNAR: NO Resuscitation Discussed with: patient MAR Reviewed: Yes Vital Signs & Weight: Vital Signs (12 hours) Temp Pulse Resp BP Pulse Ox 04/24/18 15:18 98.9 F 80 20 111/57 L 94 L 04/24/18 11:43 98.7 F 84 20 114/60 92 L 04/24/18 09:41 86 16 04/24/18 07:32 97.7 F 86 22 H 113/58 L 94 L 04/24/18 03:32 98.6 F 85 18 109/54 L 90 L Weight Weight 221 lb I&O: 04/23/18 04/24/18 04/25/18 06:59 06:59 06:59 Intake Total 600 1120 Output Total 200 1085 300 Balance 400 35 -300 Result Diagrams: 04/24/18 04:22 04/21/18 03:19 Additional Labs: Accuchecks 04/24/18 04/24/18 04/23/18 10:41 05:29 20:57 POC Glucose 111 H 110 157 H Phys Exam - Physical Examination HEENT: PERRLA Respiratory: no wheezing, no rales, no rhonchi, clear to auscultation bilateral Cardiovascular: RRR, no significant murmur, no rub Gastrointestinal: soft, non-tender, no distention, positive bowel sounds Musculoskeletal: edema present + mild edema of the right lower extremity, no warmth + good distal pulses Dx/Plan (1) Atrial fibrillation Code(s): I48.91 - UNSPECIFIED ATRIAL FIBRILLATION Status: Acute (2) Cellulitis of right leg Code(s): L03.115 - CELLULITIS OF RIGHT LOWER LIMB Status: Acute (3) Hematoma of right lower extremity Code(s): S80.11XA - CONTUSION OF RIGHT LOWER LEG, INITIAL ENCOUNTER Status: Acute (4) Deep vein thrombosis of left lower extremity Code(s): I82.402 - ACUTE EMBOLISM AND THOMBOS UNSP DEEP VEINS OF L LOW EXTREM Status: Acute (5) Diabetes type 2, controlled Code(s): E11.9 - TYPE 2 DIABETES MELLITUS WITHOUT COMPLICATIONS Status: Chronic Comment: ISS, serial accuchecks (6) Hypertension Code(s): I10 - ESSENTIAL (PRIMARY) HYPERTENSION Status: Chronic - Plan * AFIB with RVR- heart rate is better * Echo- results noted, there was no significant change from his previous * Cellulitis- will transition him to oral antibiotics * Stable for transition to Rehab.
[2018-04-24] MEDS: Warfarin Sodium 2.5 MG TAB PO SCH (16:39)
[2018-04-24] MEDS: HYDROcodone/Acetaminophen 10/325 mg Tablet PO PRN (16:39)
[2018-04-24] MEDS: Cephalexin 250 MG CAP PO SCH (20:01)
[2018-04-24] MEDS: Ubidecarenone 50 MG CAP PO SCH (20:02)
[2018-04-24] MEDS: Rosuvastatin 20 MG TAB PO SCH (20:02)
[2018-04-24] MEDS: Acetaminophen 325 MG TAB PO PRN (20:16)
[2018-04-25] MEDS: HYDROcodone/Acetaminophen 10/325 mg Tablet PO PRN (04:16)
[2018-04-25 07:15] LABS: INR-International Normal Ratio 1.6; Prothrombin Time 18.9 SEC (12.0-14.7)
[2018-04-25] MEDS: Enoxaparin Sodium 100 MG/ML SYRINGE SC SCH (08:44)
[2018-04-25] MEDS: glipiZIDE 5 MG TAB PO SCH (08:44)
[2018-04-25] MEDS: Ferrous Sulfate 325 MG TAB PO SCH (08:45)
[2018-04-25] MEDS: Finasteride 5 MG TAB PO SCH (08:45)
[2018-04-25] MEDS: Aspirin 81 mg Enteric Coated Tablet PO SCH (08:45)
[2018-04-25] MEDS: Gabapentin 300 MG CAP PO SCH ×3 (08:45→16:37)
[2018-04-25] MEDS: Allopurinol 100 MG TAB PO SCH (08:45)
[2018-04-25] MEDS: Docusate 100 MG CAP PO SCH (08:45)
[2018-04-25] MEDS: Cephalexin 250 MG CAP PO SCH (10:04)
[2018-04-25] MEDS: HYDROcodone/Acetaminophen 5/325 mg Tablet PO PRN (10:05)
--- NOTE | 2018-04-25 11:10 | PDOC.PN ---
- Subjective Encounter Start Date: 04/25/18 Encounter Start Time: 11:08 Mr. Topete was seen today in follow-up of cellulitis of the right leg. He is feeling better this morning. His heart rate was stable overnight. - Objective Resuscitation Status - Order Detail: 04/20/18 09:18 Resuscitation Status Routine Resuscitation Status: DNAR: NO Resuscitation Discussed with: patient MAR Reviewed: Yes Vital Signs & Weight: Vital Signs (12 hours) Temp Pulse Resp BP Pulse Ox 04/25/18 09:20 86 12 04/25/18 08:00 98.1 F 86 22 H 117/58 L 95 04/25/18 03:34 97.8 F 90 20 122/68 94 L 04/25/18 00:10 82 16 94 L 04/24/18 23:55 98.0 F 85 16 125/66 93 L Weight Weight 221 lb I&O: 04/24/18 04/25/18 04/26/18 06:59 06:59 06:59 Intake Total 1120 Output Total 1085 950 Balance 35 -950 Result Diagrams: 04/24/18 04:22 04/21/18 03:19 Additional Labs: Accuchecks 04/25/18 04/25/18 04/24/18 10:45 05:58 20:56 POC Glucose 126 H 103 129 H 04/24/18 16:16 POC Glucose 91 Phys Exam - Physical Examination HEENT: PERRLA Respiratory: no rales, wheezing present + occassional rhonchi, Cardiovascular: no rub, irregular 2/6 systolic murmur at the base- axilla Gastrointestinal: soft, non-tender, no distention, positive bowel sounds Musculoskeletal: edema present + trace lower extremity edema, erythema of the right leg is almost gone Neurological: non-focal, moves all 4 limbs ( ) Dx/Plan (1) Atrial fibrillation Code(s): I48.91 - UNSPECIFIED ATRIAL FIBRILLATION Status: Acute (2) Cellulitis of right leg Code(s): L03.115 - CELLULITIS OF RIGHT LOWER LIMB Status: Acute (3) Hematoma of right lower extremity Code(s): S80.11XA - CONTUSION OF RIGHT LOWER LEG, INITIAL ENCOUNTER Status: Acute (4) Deep vein thrombosis of left lower extremity Code(s): I82.402 - ACUTE EMBOLISM AND THOMBOS UNSP DEEP VEINS OF L LOW EXTREM Status: Acute (5) Diabetes type 2, controlled Code(s): E11.9 - TYPE 2 DIABETES MELLITUS WITHOUT COMPLICATIONS Status: Chronic Comment: ISS, serial accuchecks (6) Hypertension Code(s): I10 - ESSENTIAL (PRIMARY) HYPERTENSION Status: Chronic - Plan * Cellulitis- improved- continue Omnicef * AFIB- her heart rate is stable * DVT of the leftleg- his INR was 1.6 today- continue Lovenos until therapeutic, then continue with coumadin * HTN- blood pressure is stable * OK to transfer to rehab today.
[2018-04-25 16:05] VITALS: BP 127/73; TEMP 98.6
[2018-04-25] MEDS: Warfarin Sodium 2.5 MG TAB PO SCH (16:37)
--- NOTE | 2018-04-26 02:26 | DIS ---
DATE OF ADMISSION: 04/20/2018 DATE OF DISCHARGE: 04/25/2018 PRIMARY CARE PHYSICIAN: Dr. Adalberto Mackey. DISCHARGE DISPOSITION: Inpatient rehab. DISCHARGE DIAGNOSES: 1. Cellulitis of the right lower extremity. 2. Deep vein thrombosis of the left lower extremity. 3. Chronic atrial fibrillation, on Coumadin. 4. Coronary artery disease. 5. Diabetes mellitus. 6. Chronic systolic heart failure. 7. Gastroesophageal reflux disease. 8. Chronic kidney disease stage 3. DISCHARGE MEDICATIONS: Includes; 1. Keflex 500 mg twice a day for 5 days. 2. Coumadin 5 mg daily. 3. CoQ10 of 100 mg daily. 4. Trazodone 50 mg at bedtime. 5. Crestor 20 mg at bedtime. 6. Protonix 40 mg daily. 7. Baldwin 10/325 q.4 hours as needed for pain. 8. Glipizide 5 mg daily. 9. Gabapentin 300 mg 2 tablets q.i.d. 10. Lasix 40 mg daily. 11. Finasteride 5 mg daily. 12. Ferrous sulfate 325 mg daily. 13. Colace 200 mg twice a day. 14. Valium 10 mg at bedtime. 15. Aspirin 81 mg daily. 16. Allopurinol 100 mg daily. PROCEDURES DONE DURING ADMISSION: The patient had an ultrasound of both lower extremities. The venogram on the right showed area of fluid collection in the medial thigh, likely a hematoma. The left venous Doppler showed partially occlusive deep vein thrombosis on the left. The patient also had an echocardiogram, which demonstrated an ejection fraction of 40% to 45%. There was a cxqcpxeg-yt-dbsheqmr enlarged right atrium. The left atrium was galmacpooy-fk-xnxaqque dilated. No significant valvular disease. CODE STATUS: Do not resuscitate. ALLERGIES: TO LEVAQUIN AND SULFA. HOSPITAL COURSE: Mr. Topete is a pleasant 88-year-old gentleman, who was admitted after he noted increasing swelling in the right lower extremity. He noted in the area where he had a large hematoma after he suffered a fall. Also distal to the hematoma in the calf, there was some erythema and redness. He had likely developed a cellulitis around an old hematoma. Vascular Surgery was consulted for this as well as the new left DVT. He had the evacuation of the hematoma and a wound VAC was placed and he was started back on anticoagulation. The lower extremity thrombosis in the left leg was thought to have occurred likely when he was taken off Coumadin for a short while due to the large hematoma he had developed after the fall on the right leg. Therefore, it is unlikely that this was a blood clot while on therapeutic Coumadin. After he was stabilized with regard to the cellulitis, he was transitioned to an oral antibiotic and is going to return to rehab again to undergo physical therapy due to some deconditioning that he has suffered as a result of this current illness. Job ID: [id number]
--- NOTE | 2018-04-29 15:00 | PQF ---
VETO RODRIGUEZ TONI MD [id number] CLINICAL DOCUMENTATION CLARIFICATION FORM: POST DISCHARGE Addendum to original discharge summary date: ____ Late entry note date: __ DATE: 04/29/2018 ATTN: DR. DERAS Please exercise your independent, professional judgment in responding to the clarification form. Clinical indicators are provided on the bottom of this form for your review Please check appropriate box(s): Cellulitis - Right Thigh [ ] Due to Diabetes [ ] Other diagnosis In addition, please specify: Present on Admission (POA): [ ] Yes [ ] No [ ] Unable to determine For continuity of documentation, please document condition throughout progress notes and discharge summary. Thank You. CLINICAL INDICATORS - SIGNS / SYMPTOMS / LABS: H&P - Documentation of Cellulitis - right of lower extremity Progress notes - Cellulitis of right lower extremity RISKS: Diabetes Recent injury to site - Hematoma right leg TREATMENT: 04/20 H&P - IV Antibiotics 04/21 Op report - Incision and drainage (This form is maintained as a part of the permanent medical record) 2014 [employer], [employer]. All Rights Reserved Jammie Trujillo, [place], [facility]-H [email or web address] [phone] MTDJuan
--- NOTE | 2018-04-29 15:08 | PQF ---
VETO RODRIGUEZ TONI MD [id number] [facility] [id number] CLINICAL DOCUMENTATION CLARIFICATION FORM: POST DISCHARGE Addendum to original discharge summary date: ____ Late entry note date: __ DATE: 04/29/18 ATTN: DR. DERAS Please exercise your independent, professional judgment in responding to the clarification form. Clinical indicators are provided on the bottom of this form for your review Please check appropriate box(s): HEART FAILURE: A. TYPE: [ ] Systolic / HFrEF [ ] Diastolic / HFpEF [ ] Combined Systolic / Diastolic B. ACUITY [ ] Acute [ ] Acute on Chronic [ ] Chronic [ ] Other diagnosis [ ] Unable to determine In addition, please specify: Present on Admission (POA): [ ] Yes [ ] No [ ] Unable to determine For continuity of documentation, please document condition throughout progress notes and discharge summary. Thank You. CLINICAL INDICATORS - SIGNS / SYMPTOMS / LABS: Ejection Fraction =__45-50____ % 04/22 Cardio consult - Systolic heart failure 04/25 PN - Systolic heart failure, Diastolic heart failure RISKS: CKD Hypertension TREATMENTS: Lasix 40 mg daily (This form is maintained as a part of the permanent medical record) 2014 [employer], [employer]. All Rights Reserved Jammie Trujillo, [facility], [employer]ACHINE OPERATOR-H [email or web address] [phone] LESLY
== END 2018-04-25 16:50 | DRG 580 ==
LOC: ERS 23:04 → ERHOLD 04-20 03:18 → 2SE 04-20 06:58
PROVIDERS: ADMIT Internal Medicine; ATTEND Internal Medicine
PROC: 0J9L0ZZ Drainage of Right Upper Leg Subcutaneous Tissue and Fascia, Open Approach (ICD-10-PCS; principal; 2018-04-21)
DX: L03.115 Cellulitis of right lower limb (principal); I50.22 Chronic systolic (congestive) heart failure; I82.412 Acute embolism and thrombosis of left femoral vein; I13.0 Hypertensive heart and chronic kidney disease with heart failure and stage 1 through stage 4 chronic kidney disease, or unspecified chronic kidney disease; I48.2 Chronic atrial fibrillation; Z79.01 Long term (current) use of anticoagulants; Z66 Do not resuscitate; I25.10 Atherosclerotic heart disease of native coronary artery without angina pectoris; Z87.891 Personal history of nicotine dependence; K21.9 Gastro-esophageal reflux disease without esophagitis; M10.9 Gout, unspecified; Z86.711 Personal history of pulmonary embolism; Z95.1 Presence of aortocoronary bypass graft; E11.22 Type 2 diabetes mellitus with diabetic chronic kidney disease; N18.3 Chronic kidney disease, stage 3 (moderate); S70.11XA Contusion of right thigh, initial encounter; W19.XXXA Unspecified fall, initial encounter
CPT/HCPCS: 36415; 36416; 71045; 80048; 80053; 81003; 81015; 83605; 85014; 85018; 85025; 85049; 85610; 85652; 85730; 86140; 86850; 86900; 86901; 87040; 87086; 93306; 93970; 94640; 96365; 96366; 96367; G8978-GP-CK; G8979-GP-CI; G8987-GO-CL; G8988-GO-CJ; J0670; J0696; J1644; J1650; J2405; J2543; J2704; J2720; J3010; J3370; J3430; J7050; J7620

== ENCOUNTER 2018-05-10 22:28 | Inpatient (IN) | payer MEDICARE ==
[2018-05-10] MEDS ORDERED: Sodium Chloride 0.9% 100 ML ONE (22:38)
[2018-05-10] MEDS ORDERED: Diltiazem 125 MG/25 ML ONE (22:38)
--- NOTE | 2018-05-10 23:03 | RAD ---
SINGLE VIEW OF THE CHEST: Comparison: 04-20-18 History: Fever. FINDINGS: Single view of the chest shows an enlarged but stable cardiomediastinal silhouette. The patient is st atus post CABG. There is no evidence of consolidation, mass, or pleural effusion. IMPRESSION: No evidence of acute cardiopulmonary disease. POS: [facility]
[2018-05-10 23:17] LABS: ALT (SGPT) 18 U/L (8-55); AST (SGOT) 24 U/L (5-34); Albumin 3.5 g/dL (3.4-4.8); Alkaline Phosphatase 83 U/L (40-150); Anion Gap 13 mmol/L (10-20); BUN (Urea Nitrogen) 26 mg/dL (8.4-25.7); Bilirubin, Total 0.6 mg/dL (0.2-1.2); Calc. Creatinine Clearance 0 mL/min (70-130); Calcium 8.2 mg/dL (7.8-10.44); Carbon Dioxide 21 mmol/L (23-31); Chloride 105 mmol/L (98-107); Estimated GFR-MDRD 36; Globulin 2.8 g/dL (2.4-3.5); Glucose 110 mg/dL (83-110); Potassium 3.9 mmol/L (3.5-5.1); Protein, Total 6.3 g/dL (5.8-8.1); Sodium 135 mmol/L (136-145)
[2018-05-10 23:22] LABS: INR-International Normal Ratio 2.2; PTT 42.7 SEC (22.9-36.1); Prothrombin Time 24.6 SEC (12.0-14.7)
[2018-05-10 23:33] LABS: Anisocytosis SLIGHT = 6-15 cells (100X) (0-5/hpf); Band 5 % (5-11); Eosinophils 3 % (0-10); Hemoglobin 10.8 g/dL (14.0-18.0); Lymphocytes 65 % (21-51); MDiff Complete? YES; Mean Corpuscular HGB CONC 34.8 g/dL (32.0-36.0); Mean Corpuscular Hemoglobin 33.3 pg (27.0-31.0); Mean Corpuscular Volume 95.6 fL (78.0-98.0); Mean Platelet Volume 8.5 fL (7.4-10.4); Monocytes 11 % (0-10); Neutrophil 16 % (42-75); PLT Morphology Comment Appears Decreased; Platelet Count 117 thou/uL (130-400); RBC Distribution Width 15.7 % (11.5-14.5); Red Blood Cell (RBC) Count 3.23 mill/uL (4.70-6.10); White Blood Cell (WBC) Count 9.2 thou/uL (4.8-10.8)
--- NOTE | 2018-05-10 23:46 | CT ---
CTA CHEST WITH CONTRAST: Comparison: None. History: Fever. Chest palpitations, lightheadedness, generalized weakness. Shortness of breath. Technique: Multiple contiguous axial images were obtained in a CTA of the chest with contrast perform ed with pulmonary embolism. 3D oblique MIP reformats and direct coronal reformats were performed. FINDINGS: The pulmonary arteries are well opacified without filling defects to suggest pulmonary emboli. Global cardiomegaly is seen. Status post CABG. No hilar or mediastinal lymphadenopathy are appreciated. Atelectasis is seen in both lung bases. Bronchiectasis is seen in the right middle lobe and bilateral lower lobes. No pneumothorax or pleural effusion are seen. No suspicious pulmonary nodules are ident ified. Degenerative changes are seen in the spine. There are hypodensities in both kidneys which likely repr esents cysts. The individualized subdiaphragmatic structures are unremarkable. Bilateral gynecomastia is present. IMPRESSION: 1. No evidence of pulmonary thromboembolism. 2. Bronchiectasis. 3. Bilateral renal cysts. POS: [facility]
[2018-05-11] MEDS ORDERED: Digoxin 0.5 MG/2 ML AMP ONE (00:06)
[2018-05-11 00:15] LABS: Bilirubin Negative (Negative); Blood, Urine Negative (Negative); Clarity CLEAR (Clear); Glucose, Urine (Dipstick) Negative (Negative); Leukocyte Trace (Negative); Nitrite Negative (Negative); Protein, Urine (Dipstick) Negative (Neg-Trace); Specific Gravity, Urine 1.019 (1.002-1.036); Urobilinogen 0.2 mg/dL (0.2-1.0); pH, Urine 5.5 (5.0-9.0)
[2018-05-11 00:17] LABS: Bacteria/HPF None Seen HPF (None Seen); Hyaline Casts/LPF 0-3 HYALINE CAST LPF (0-3 Hyaline); Pathc Cast-AUWi Flag 0.58 (0-2.49); RBC/HPF 0-3 HPF (0-3); Squamous Epithelial 0-3 HPF (0-3); WBC/HPF 0-3 HPF (0-3)
[2018-05-11] MEDS ORDERED: Piperacillin/Tazobactam 3.375 GM VIAL ONE ×2 (01:07→07:43)
[2018-05-11] MEDS ORDERED: Ipratropium Bromide 2.5 ml Neb NEB SCH (01:15)
[2018-05-11] MEDS ORDERED: Acetaminophen 325 MG TAB PO PRN (01:17)
[2018-05-11] MEDS ORDERED: Dextrose 50% Abboject 50 ML SYRINGE SLOW IVP PRN (01:28)
[2018-05-11] MEDS ORDERED: Dextrose 5% in Water 1,000 ML IV PRN (01:28)
[2018-05-11 01:38] LABS: Troponin I 0.011 ng/mL (< 0.028)
[2018-05-11] MEDS ORDERED: Norepinephrine 8 MG/0.9% NS 250 ML ONE (02:33)
[2018-05-11] MEDS ORDERED: Norepinephrine 8 MG/0.9% NS 250 ML IVPB SCH (02:45)
[2018-05-11] MEDS ORDERED: Vancomycin HCl 1 GM in Premix Bag 1 BAG IVPB SCH (03:00)
[2018-05-11] MEDS ORDERED: WARFARIN PO PRN (03:31)
[2018-05-11] MEDS ORDERED: VANCOMYCIN IVPB PRN (03:33)
[2018-05-11 04:10] LABS: Anion Gap 14 mmol/L (10-20); BUN (Urea Nitrogen) 24 mg/dL (8.4-25.7); Calc. Creatinine Clearance 0 mL/min (70-130); Calcium 7.6 mg/dL (7.8-10.44); Carbon Dioxide 20 mmol/L (23-31); Chloride 109 mmol/L (98-107); Estimated GFR-MDRD 39; Glucose 138 mg/dL (83-110); Potassium 3.9 mmol/L (3.5-5.1); Sodium 139 mmol/L (136-145)
[2018-05-11 04:23] LABS: INR-International Normal Ratio 2.3; Prothrombin Time 25.1 SEC (12.0-14.7)
[2018-05-11 04:54] LABS: Band 12 % (5-11); Eosinophils 1 % (0-10); Hemoglobin 9.7 g/dL (14.0-18.0); Lymphocytes 48 % (21-51); MDiff Complete? YES; Mean Corpuscular HGB CONC 33.8 g/dL (32.0-36.0); Mean Corpuscular Hemoglobin 32.8 pg (27.0-31.0); Mean Corpuscular Volume 97.1 fL (78.0-98.0); Mean Platelet Volume 8.6 fL (7.4-10.4); Monocytes 8 % (0-10); Neutrophil 31 % (42-75); Ovalocytes SLIGHT = 2-5 cells (100X) (0-1/hpf); PLT Morphology Comment Appears Decreased; Platelet Count 108 thou/uL (130-400); RBC Distribution Width 15.9 % (11.5-14.5); Red Blood Cell (RBC) Count 2.97 mill/uL (4.70-6.10); White Blood Cell (WBC) Count 6.5 thou/uL (4.8-10.8)
[2018-05-11] MEDS: Piperacillin/Tazobactam 3.375 GM in Sodium Chloride 0.9% 100 ML IVPB SCH ×3 (07:49→17:00)
[2018-05-11] MEDS: Ipratropium Bromide 2.5 ml Neb NEB SCH ×2 (07:53→10:23)
[2018-05-11 08:49] VITALS: BMI 26.5
[2018-05-11] MEDS: Sodium Chloride 0.9% 1,000 ML IV SCH ×2 (10:28→11:03)
[2018-05-11] MEDS: Allopurinol 100 MG TAB PO SCH (10:31)
[2018-05-11] MEDS: guaiFENesin ER 600 MG TAB PO SCH ×2 (10:31→21:37)
--- NOTE | 2018-05-11 11:46 | PDOC.EVN ---
Event Note - Event Note Event Note: Patient in afib, afebrile. Continue bear hugger to keep patient warm, patient afebrile now
[2018-05-11] MEDS: Benzonatate 100 MG CAP PO SCH ×2 (15:56→21:36)
[2018-05-11] MEDS: Warfarin Sodium 2.5 MG TAB PO SCH (16:40)
[2018-05-11] MEDS ORDERED: Digoxin 0.5 MG/2 ML AMP SLOW IVP SCH (16:45)
[2018-05-11] MEDS ORDERED: Warfarin Sodium 5 MG TAB PO SCH (17:00)
--- NOTE | 2018-05-11 17:33 | CON ---
DATE OF CONSULTATION: HISTORY OF PRESENT ILLNESS: Mr. Topete is a very pleasant 88-year-old male, who was admitted with rapid atrial fibrillation. He was recently in the hospital and discharged on 04/25. He was treated for cellulitis and a deep vein clot in his left lower extremity. He has atrial fibrillation. He was discharged on warfarin. His chronic systolic heart failure is well. That admission, he had incision and drainage of right thigh hematoma. 350 mL of clot was evacuated by Dr. Rayo. He received wound care after that. The trigger for the hematoma was apparently a fall. His anticoagulation was held. He had a possible partially occlusive clot in his left lower extremity, and he was admitted to the hospital. PAST MEDICAL HISTORY: Remarkable for pulmonary embolism, chronic kidney disease, atrial fibrillation, diabetes, systolic heart failure, coronary artery disease, hepatitis, and reflux disease. PAST SURGICAL HISTORY: He has had a 3-vessel bypass, laminectomy, colon resection, shoulder surgery, and TURP. SOCIAL HISTORY: He is a nonsmoker and nondrinker. FAMILY HISTORY: Negative for lung disease in early age. Reports Levaquin and sulfa intolerance. REVIEW OF SYSTEMS: Ten-point review of systems remarkable for improved shortness of breath. He is no longer having palpitations. Remainder of his review of systems is negative. PHYSICAL EXAMINATION: GENERAL: Very pleasant, cooperative gentleman, in no distress. He was lying in approximately 15 degrees in bed. HEENT: Pupils are equal. Sclerae are anicteric. NECK: Supple. LUNGS: Clear. HEART: Irregular. ABDOMEN: Soft and nontender. EXTREMITIES: Without clubbing, cyanosis, or edema. He has multiple bruises in all 4 extremities. He has a dressing on his thigh. His vital signs have been stable. CT pulmonary angiogram, which shows no thromboembolic disease. IMPRESSION: 1. Rapid atrial fibrillation, clinically improved. 2. Recent deep venous thrombosis. 3. Febrile illness on admission. He may have early pneumonia at his lung bases, started on broad antimicrobial therapy. I do not see if there are any blood cultures that are pending, I have to call the lab. At this point in time, he is significantly improved, but probably needs to remain in the critical care unit. This was a 70-minute consult, 50% of time spent on the unit coordinating care. 4. His urine culture from today is no growth at 1200 hours. His hemoglobin is 9.7, it was 10.8 yesterday. Platelets are slightly low at 108,000. Creatinine is 1.68. Creatinine is 1.78 yesterday. Creatinine was 1.73 on the th and 1.85 on the , so this is pretty stable. 5. Chronic kidney disease. We will follow the other physicians caring for him. Job ID: [id number]
[2018-05-11] MEDS: traZODone HCl 50 MG TAB PO PRN (21:37)
[2018-05-11] MEDS: Rosuvastatin 20 MG TAB PO SCH (21:37)
--- NOTE | 2018-05-11 22:18 | HP ---
CHIEF COMPLAINT: Fever. HISTORY OF PRESENT ILLNESS: Patient is a very pleasant 88-year-old male who was recently discharged from the hospital on 04/25/2018, after he had a significant hematoma on his right thigh, which was evacuated and also had a wound VAC that was placed. He also last time had a blood clot in his left leg since he was off the Coumadin for some time. The patient presented today to the hospital with complaints of fever x1 day. The patient's who was at the bedside stated that he has been having a low-grade fever for the past couple of days. However, the nurse came in this morning to look at the wound VAC and the wound. According to the nursing staff, the wound looked okay. Then, he was found to have a low-grade temperature. At this time, his PCP was called and patient was prescribed doxycycline, which he took two doses off. Patient's stated that later on today she checked his temperature and tonight it was 102.2. At this time, she was concerned that he was not feeling well, so she brought him to the hospital for further evaluation. When patient arrived to the hospital, he was found to be in AFib and rapid ventricular response and heart rate in the 160s to 180s. At this time, he was given 10 mg of Cardizem 2 times separately, one was 5 and the other one is another 5 bolus for a total of 15 mg of bolus and his drip was started at 5 mg an hour. At this time given the patient's low blood pressure, the drip was then discontinued and patient was given digoxin 0.5 mg. Also, his blood pressure was very labile. His MAPS were less than 65. He was given IV fluids in the ER and maintenance fluid has been started. PAST MEDICAL HISTORY: As of the following. 1. Patient has a history of AFib, currently on Coumadin. 2. History of coronary artery disease, status post bypass. 3. He has a history of chronic kidney disease, stage 3. 4. He has a history of diabetes. 5. He has a history of hepatitis. 6. He has a history of reflux. PAST SURGICAL HISTORY: 1. He has had a 3-vessel bypass. 2. Laminectomy. 3. Colon resection. 4. He has had a TURP. 5. He had some orthopedic surgery. FAMILY HISTORY: No history of heart disease or hypercoagulable state. REVIEW OF SYSTEMS: All negative, except for the ones mentioned above in the HPI. ALLERGIES: HE IS ALLERGIC TO SULFA AND LEVOFLOXACIN. SOCIAL HISTORY: He is a former smoker. Denies any current smoking or alcohol use or drug use. He is currently a full code. MEDICATIONS: This is from his last discharge. He is on: 1. Coumadin 5 mg daily. 2. Trazodone 50 mg at bedtime. 3. Crestor 20 mg at bedtime. 4. Protonix 40 mg daily. 5. Glipizide 5 mg daily. 6. Gabapentin 300 mg b.i.d. 7. Lasix 40 mg daily. 8. Finasteride 5 mg daily. 9. Ferrous sulfate 325 daily. 10. Colace 100 mg b.i.d. 11. Valium 10 mg at bedtime. 12. Aspirin 81 mg daily. 13. Allopurinol 100 mg daily. PHYSICAL EXAMINATION: VITAL SIGNS: Patient's temperature right now is 97.7, respirations of 20, 93% on 2 L, currently 108, and his blood pressure currently is 100/50. GENERAL: He is awake, alert, and oriented x3. Does not appear in distress. HEENT: Normocephalic and atraumatic. No lymphadenopathy noted. CV: Irregularly irregular. No murmurs heard. LUNGS: He has mild rhonchi all over lungs. ABDOMEN: Soft and nontender. Bowel sounds are present x2. No hepatomegaly or splenomegaly noted. EXTREMITIES: He does have a wound VAC to his right thigh, which no erythema has been noted. However, his right leg is warm to touch. Pedal pulses are present bilaterally to lower extremities. On his left heel area, he does have a dressing on. However, upon looking at it, there is no open wound on the left heel. NEUROLOGIC: No focal deficits noted. Patient is able to move all extremities. SKIN: Again, there is wound VAC on the right thigh. No other abnormalities have been noted. LABORATORY RESULTS: As of the following. His urine appears to be completely normal, except for some trace leukocytes. CBC; 9.2, hemoglobin of 10.8, hematocrit of 30.9, and his platelets are currently 117. He does have some bands of 5. Chemistry; sodium of 135, potassium of 3.9, BUN of 26, creatinine of 1.78. His LFTs are normal. His lactic acid is normal at 1.4. His BNP is 123.1. He did have an influenza swab which was negative. Patient also had a CTA of his lungs, which indicated no evidence of PE, bronchiectasis. Bilateral renal cyst. He also had an EKG which indicated AFib. ASSESSMENT AND PLAN: Patient is a very pleasant 88-year-old male who comes to the hospital with a fever. 1. Atrial fibrillation with rapid ventricular response, unstable. Patient's blood pressure is very low. However, currently his heart rate has been maintaining in the low 100s. He was given digoxin 0.5 mg and initially was started on Cardizem, which has been stopped due to his low blood pressure. Patient has received 2 L of normal saline. I will continue the fluids at 50 mL an hour. Patient also had a fever of 102, unknown source. Chest x-ray does not appear to have any pneumonia. However, he does have some rhonchi all over. His urine appears to be normal. They have collected blood cultures. We will wait for that. Patient's stated that he has been very cold and has been having some chills recently. I will cover him prophylactically with antibiotics of vancomycin and Zosyn for now. This could be possible underlying infection which is causing him to go into atrial fibrillation with rapid ventricular response and is causing him to have a low blood pressure also. He has been resuscitated with 2 L of normal saline. I will continue the normal saline. Also, if his mean arterial pressures continue to stay greater than 65, I will admit him to the IMCU. If not, he will have to go to the CCU for starting of Levophed drip. His last echocardiogram that was done in 1999 just recently this month indicated an EF of 40% to 45%, and he did have [id number] enlarged right atrium. 2. Fever. The fever could be secondary to infectious process. I will start him on some broad-spectrum antibiotics and continue to monitor. Blood cultures have been drawn per the nursing staff. 3. Diabetes. We will continue the patient on sliding scale insulin and continue to monitor. 4. . Currently, patient's blood pressure is low. We will continue to monitor. 5. Atrial fibrillation. Patient is on Coumadin. We will continue the Coumadin. His INR is 2.2, and he will continue his Coumadin for now and he also has a new DVT that was found on the left lower extremity recently, so I will continue his home dose Coumadin. Job ID: [id number]
[2018-05-12] MEDS: Piperacillin/Tazobactam 3.375 GM in Sodium Chloride 0.9% 100 ML IVPB SCH ×4 (01:02→18:10)
[2018-05-12 04:56] LABS: INR-International Normal Ratio 2.6; Prothrombin Time 27.9 SEC (12.0-14.7)
[2018-05-12] MEDS: Vancomycin HCl 1 GM in Premix Bag 1 BAG IVPB SCH (06:55)
[2018-05-12] MEDS: guaiFENesin ER 600 MG TAB PO SCH ×2 (08:45→21:34)
[2018-05-12] MEDS: Benzonatate 100 MG CAP PO SCH ×3 (08:45→21:33)
[2018-05-12] MEDS: Allopurinol 100 MG TAB PO SCH (08:45)
[2018-05-12] MEDS ORDERED: Digoxin 0.5 MG/2 ML AMP SLOW IVP SCH (09:00)
[2018-05-12] MEDS: HYDROcodone/Acetaminophen 10/325 mg Tablet PO PRN (09:26)
--- NOTE | 2018-05-12 11:10 | PDOC.PN ---
- Subjective Encounter Start Date: 05/12/18 Encounter Start Time: 10:45 Subjective: Patient feeling much better. Still with chronic cough, no more fever. BP -: and pulse improved. Nml BM. No dysuria. - Objective Resuscitation Status - Order Detail: 05/12/18 11:08 Resuscitation Status Routine Resuscitation Status: DNAR: NO Resuscitation Discussed with: Patient and Son REBEKAH Reviewed: Yes Vital Signs & Weight: Vital Signs (12 hours) Temp Pulse Resp Pulse Ox 05/12/18 08:45 75 05/12/18 07:27 95 05/12/18 07:25 75 32 H 95 05/12/18 07:11 94 L 05/12/18 07:00 98.7 F 05/12/18 06:00 98.1 F 05/12/18 02:21 75 28 H 97 05/12/18 00:00 98.4 F Weight Weight 185 lb 3.013 oz Most Recent Monitor Data Heart Rate from ECG 97 NIBP 100/57 NIBP BP-Mean 71 Respiration from ECG 20 SpO2 99 I&O: 05/11/18 05/12/18 05/13/18 06:59 06:59 06:59 Intake Total 2077 240 Output Total 2371 300 Balance -294 -60 Result Diagrams: 05/11/18 03:48 05/11/18 03:48 Additional Labs: Accuchecks 05/11/18 05/11/18 16:22 11:07 POC Glucose 147 H 106 Phys Exam - Physical Examination Constitutional: NAD HEENT: moist MMs Respiratory: no wheezing, no rales, no rhonchi Cardiovascular: no significant murmur, irregular Gastrointestinal: soft, non-tender, no distention, positive bowel sounds Neurological: non-focal, moves all 4 limbs Psychiatric: normal affect, A&O x 3 Dx/Plan (1) Atrial fibrillation with rapid ventricular response Code(s): I48.91 - UNSPECIFIED ATRIAL FIBRILLATION Status: Acute Comment: Rate now controlled (2) Sepsis Code(s): A41.9 - SEPSIS, UNSPECIFIED ORGANISM Status: Acute Comment: Fever resolved and HR normalized. Possible early pneumonia per Dr. Bull. On IV Abx. (3) Deep vein thrombosis of left lower extremity Code(s): I82.402 - ACUTE EMBOLISM AND THOMBOS UNSP DEEP VEINS OF L LOW EXTREM Status: Acute Qualifiers: Chronicity: acute Comment: Coumadin therapeutic (4) CAD (coronary artery disease) Code(s): I25.10 - ATHSCL HEART DISEASE OF [place] CORONARY ARTERY W/O ANG PCTRS Status: Chronic (5) CKD (chronic kidney disease) stage 3, GFR 30-59 ml/min Code(s): N18.3 - CHRONIC KIDNEY DISEASE, STAGE 3 (MODERATE) Status: Chronic Comment: Stable, baseline renal function, avoid nephrotoxic agents and limit contrast exposure (6) Chronic systolic (congestive) heart failure Code(s): I50.22 - CHRONIC SYSTOLIC (CONGESTIVE) HEART FAILURE Status: Chronic (7) Diabetes type 2, controlled Code(s): E11.9 - TYPE 2 DIABETES MELLITUS WITHOUT COMPLICATIONS Status: Chronic Comment: ISS, serial accuchecks (8) Hypertension Code(s): I10 - ESSENTIAL (PRIMARY) HYPERTENSION Status: Chronic - Plan cont current plan of care, continue antibiotics, PT/OT Continue IV abx for now. Patient stable overnight. Can transfer to the -: floor if ok with Dr. Bull. * . - Discharge Day Encounter end time: 11:10
[2018-05-12] MEDS: Insulin Regular 300 UNITS/3 ML VIAL SC PRN ×3 (11:20→21:44)
--- NOTE | 2018-05-12 12:28 | PRG ---
DATE OF SERVICE: 05/12/2018 SERVICE: Pulmonary Medicine. INTERVAL HISTORY: The patient is doing really well from respiratory standpoint. He is breathing comfortably. He is on room air. He denies any chest pain. His heart rate is under better control. His hemodynamics is stabilized very nicely. Otherwise, there has been no interval change to his condition. OBJECTIVE: VITAL SIGNS: Afebrile currently with a T-max of 102.5, pulse 79, blood pressure 117/63, respirations 31, saturation 92% on room air. HEENT: Normocephalic and atraumatic. Sclerae are white. Conjunctivae are pink. Oral mucosa is moist without lesions. LUNGS: Excellent air entry. Crackles are present dependently with no prolonged expiratory phase or wheezing. HEART: Normal rate and regular. ABDOMEN: Soft, nontender, and nondistended. Bowel sounds are positive. MUSCULOSKELETAL: No cyanosis or clubbing. No pitting in the bilateral lower extremities. NEUROLOGIC: Grossly nonfocal. LABORATORY DATA: Blood sugars ranged from 106 to 303. Influenza A and B are negative, blood cultures x2 are unremarkable. Urine culture is also negative. ASSESSMENT: 1. Atrial fibrillation with rapid ventricular response. 2. Community-acquired pneumonia. 3. Recent history of deep venous thrombosis. 4. Chronic kidney disease. PLAN: Supportive care will be continued. He will be moved to transition to the telemetry unit. At this point, he has no further requirements for inpatient Pulmonary/Critical Care opinion, and I will sign off. He will need 7 days of antibiotics and repeat chest x-ray in 4 to 6 weeks in the outpatient setting in order to verify the infiltrate has resolved. Job ID: [id number]
[2018-05-12] MEDS: Warfarin Sodium 2.5 MG TAB PO SCH (16:00)
[2018-05-12] MEDS: Rosuvastatin 20 MG TAB PO SCH (21:33)
[2018-05-13] MEDS ORDERED: Sodium Chloride 0.9% 10 ML ONE ×2 (00:43→23:45)
[2018-05-13] MEDS: Piperacillin/Tazobactam 3.375 GM in Sodium Chloride 0.9% 100 ML IVPB SCH ×4 (01:01→18:24)
--- NOTE | 2018-05-13 01:09 | CON ---
DATE OF CONSULTATION: HISTORY OF PRESENT ILLNESS: Dustin Topete is an 88-year-old white male initially evaluated in April 1994. He had a 1-2 year history of exertional chest discomfort, which he described as a pressure all the way across the chest and sometimes radiates behind his left ear. He become dyspneic even with rest. This would resolve in 2 to 3 minutes. Moving boxes of some form of exertion or activity would bring this on. Two months prior to admission, he had a very intense episode where he walked 5 blocks to the [employer] for jury duty and became intensely short of breath. He did not have any diaphoresis, nausea, or vomiting. His chest discomfort lasted 15 minutes. On the week prior to admission, he had pain almost on a daily basis but would not necessarily be related to exertion. On the day of admission, he woke just after midnight with intense discomfort radiated to his left ear associated with diaphoresis, shortness of breath. This waxed and waned, and he came to the emergency room 3 hours later. With sublingual nitroglycerin x2, his pain improved. He did not have any EKG changes and cardiac enzymes were negative. However, on EKG, he did develop deeply inverted T-waves anterolaterally. Echo revealed normal left ventricular function with mild tricuspid regurgitation. He underwent cardiac catheterization and had an 80% to 90% proximal LAD lesion, as well as an 80% mid LAD lesion and an 80% diagonal lesion. The circumflex of right coronary artery was normal. There was mild anterior hypokinesis. We discussed bypass surgery versus angioplasty in the areas and ultimately, he decided for angioplasty although with increased risk of restenosis. The proximal mid LAD lesions were reduced to 30%, the diagonal was reduced to 40%. He was placed on Pravachol. He then was admitted again in July 1994 with recurrent angina, which progressed quickly over 2 to 3 weeks. The pain was relieved with sublingual nitroglycerin. He was placed on intravenous heparin drip and underwent repeat catheterization, which revealed an 80% proximal LAD, 90% mid LAD, 90% lesion at the takeoff of a high first diagonal. There was moderate anterior hypokinesis. He underwent CABG x2 with ARMAS to the LAD and saphenous vein graft to the diagonal. After surgery, he did well, walking 30-35 minutes several times per week on treadmill. He did have problems with muscle aches with Lipitor, Zocor and Pravachol. In 2007, he underwent adenosine Cardiolite testing which revealed no evidence of ischemia. Also, he underwent 24-hour Holter monitor and had no arrhythmias. He had some discomfort in June 2010 and underwent Lexiscan Cardiolite testing in July 2010. There was a mild fixed defect in the proximal and inferior wall, but no evidence of ischemia. 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 Pablo. In March 2011, he was noted to have heart rate in the 140s, blood pressure in the 80s. He was sent to the emergency room and found to be in atrial fibrillation with fast ventricular response. He was anticoagulated, underwent REFUGIO, which revealed no thrombus. He was loaded with Multaq and underwent electrical cardioversion back to sinus rhythm. Ultimately, while being followed as an outpatient, converted back to atrial fibrillation and Multaq was discontinued. There was a question of Multaq induced hypotension with his blood pressure usually in the 90-100 systolic range. He was placed on metoprolol and digoxin to control his atrial fibrillation rate. However, over time, the dose of digoxin had to be gradually decreased due to bradycardia, although he did not have any complaints of lightheadedness, dizziness, or syncope. He was admitted in July 2015 with pneumonia and had rapid ventricular response with his atrial fibrillation. Also, he had heart rates in the 40s-50s, sometimes dipping into the 30s with pauses over 2 seconds but was asymptomatic. In general, he has not been on any AV stephanie blocking agents due to his bradycardia. In late 2016, he was complaining of increased shortness of breath. He underwent cardiac PET scan, which revealed no evidence of ischemia or fixed defect. Also, he wore monitor and his maximum heart rate was 110 beats per minute. He was placed on a trial of Ranexa, which did not seem to improve his exertional dyspnea. He recently was admitted with hematoma of right thigh that was surgically drained and Coumadin was briefly held. He had a fall yesterday and had no significant injuries. Then today, he started having fever of 102, brought to the emergency room. He has had a cough productive of yellow-green sputum. PAST MEDICAL HISTORY: Hypertension, hypercholesterolemia, diabetes, lymphoma, GERD. MEDICATIONS: As noted in the chart. ALLERGIES: NONE. OPERATIONS: CABG, lumbar laminectomy, colectomy for diverticular disease, right shoulder surgery, and drainage of hematoma from his right thigh. SOCIAL HISTORY: He stopped smoking 50 years ago. He has not anything to drink for over 10 years. 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 FAMILY HISTORY: Negative for myocardial infarction or CABG. REVIEW OF SYSTEMS: A 12-point review of systems is otherwise unremarkable. PHYSICAL EXAMINATION: VITAL SIGNS: Blood pressure 117/57, pulse of 73. HEENT: PERRL. NECK: Supple. CHEST: Reveals distant breath sounds with occasional wheezing. CARDIOVASCULAR: S1 and S2 normal without any S3, S4, or murmurs. ABDOMEN: Normal bowel sounds without tenderness or organomegaly. EXTREMITIES: Revealed no clubbing, cyanosis, or edema. Wound VAC is present in the right medial thigh. NEUROLOGIC: Grossly intact. SKIN: Warm and dry. LABORATORY DATA: EKG reveals atrial fibrillation with rapid ventricular response of 177 per minute, marked ST and T-wave changes. Hemoglobin 9.7, hematocrit 28.8, white count 6500, platelets 108,000, INR 2.6. Sodium 139, potassium 3.9, chloride 109, carbon dioxide 20, BUN 24, creatinine 1.68. Blood and urine cultures thus for have been unremarkable. IMPRESSION: 1. Temperature up to 102 with yellow-green sputum, rule out pneumonia. 2. Chronic atrial fibrillation, which recurred after electrocardioversion in 2010. He is chronically anticoagulated. His medications for rate control have been stopped over the years due to bradycardia. He has been loaded again with digoxin during this admission. 3. History of lymphoma. 4. Coronary artery bypass grafting x2 in 1994. 5. Diabetes mellitus. 6. Renal insufficiency. 7. Hypertension. 8. Hypercholesterolemia. 9. Former smoker. 10. History of esophageal diverticulum. 11. Chronic back and neck pain. 12. Pneumonia. 13. Status post drainage of right thigh hematoma. PLAN: The patient will be kept on digoxin. However, with his renal insufficiency, I would reduce the dose to 0.125 p.o. q.a.m. Certainly, this may need to be discontinued in the future as it has been in the past due to bradycardia. We will follow the patient with you. Job ID: [id number]
[2018-05-13 02:26] LABS: #Lymphocytes 0.8 thou/uL (1.20-3.40); #Monocytes 0.3 thou/uL (0.11-0.59); #Neutrophils 5.3 thou/uL (1.40-6.50); %Eosinophils 0.1 % (0.0-10.0); %Lymphocytes 11.8 % (21.0-51.0); %Monocytes 5.4 % (0.0-10.0); %Neutrophils 82.7 % (42.0-75.0); Hemoglobin 9.9 g/dL (14.0-18.0); Mean Corpuscular HGB CONC 33.9 g/dL (32.0-36.0); Mean Corpuscular Hemoglobin 33.1 pg (27.0-31.0); Mean Corpuscular Volume 97.5 fL (78.0-98.0); Mean Platelet Volume 8.5 fL (7.4-10.4); Platelet Count 74 thou/uL (130-400); RBC Distribution Width 15.4 % (11.5-14.5); Red Blood Cell (RBC) Count 2.99 mill/uL (4.70-6.10); White Blood Cell (WBC) Count 6.4 thou/uL (4.8-10.8)
[2018-05-13 02:30] LABS: INR-International Normal Ratio 3.4; Prothrombin Time 34.1 SEC (12.0-14.7)
[2018-05-13 02:43] LABS: Vancomycin, Trough 10.5 ug/mL
[2018-05-13 03:02] LABS: Anion Gap 13 mmol/L (10-20); BUN (Urea Nitrogen) 25 mg/dL (8.4-25.7); Calc. Creatinine Clearance 35 mL/min (70-130); Calcium 8.2 mg/dL (7.8-10.44); Carbon Dioxide 20 mmol/L (23-31); Chloride 113 mmol/L (98-107); Estimated GFR-MDRD 36; Glucose 242 mg/dL (83-110); Potassium 4.4 mmol/L (3.5-5.1); Sodium 142 mmol/L (136-145)
[2018-05-13] MEDS: Vancomycin HCl 1.25 GM in Sodium Chloride 0.9% 250 ML 250 ML IVPB SCH (03:54)
[2018-05-13] MEDS: Vancomycin HCl 1 GM in Premix Bag 1 BAG IVPB SCH (04:07)
--- NOTE | 2018-05-13 07:33 | PDOC.PN ---
- Subjective Encounter Start Date: 05/13/18 Encounter Start Time: 14:15 Subjective: Patient feeling a bit better. Still with significant cough. No more fever. - Objective Resuscitation Status - Order Detail: 05/12/18 11:08 Resuscitation Status Routine Resuscitation Status: DNAR: NO Resuscitation Discussed with: Patient and Son REBEKAH Reviewed: Yes Vital Signs & Weight: Vital Signs (12 hours) Temp Pulse Resp BP Pulse Ox 05/13/18 04:00 98.2 F 107 H 20 124/77 94 L 05/13/18 03:01 83 20 97 05/13/18 00:05 80 137/67 05/12/18 22:42 85 20 97 05/12/18 20:00 98.2 F 103 H 32 H 135/62 95 Weight Admit Weight 185 lb Weight 185 lb 3.013 oz Most Recent Monitor Data Heart Rate from ECG 98 NIBP 102/64 NIBP BP-Mean 76 Respiration from ECG 35 SpO2 90 I&O: 05/12/18 05/13/18 05/14/18 06:59 06:59 06:59 Intake Total 2077 1530 Output Total 2371 300 Balance -294 1230 Result Diagrams: 05/13/18 02:12 05/13/18 02:12 Additional Labs: Accuchecks 05/13/18 05/12/18 05/12/18 06:09 21:46 16:13 POC Glucose 242 H 300 H 314 H 05/12/18 11:15 POC Glucose 303 H Phys Exam - Physical Examination Constitutional: NAD HEENT: moist MMs Respiratory: no rales course breath sounds bilaterally, good air movement throughout Cardiovascular: RRR, no significant murmur Gastrointestinal: soft, positive bowel sounds Neurological: non-focal, moves all 4 limbs Psychiatric: normal affect, A&O x 3 Dx/Plan (1) Atrial fibrillation with rapid ventricular response Code(s): I48.91 - UNSPECIFIED ATRIAL FIBRILLATION Status: Acute Comment: Rate now controlled (2) Sepsis Code(s): A41.9 - SEPSIS, UNSPECIFIED ORGANISM Status: Resolved Qualifiers: Sepsis type: sepsis due to unspecified organism Qualified Code(s): A41.9 - Sepsis, unspecified organism Comment: Fever resolved and HR normalized. Possible early pneumonia per Dr. Bull. On IV Abx. Pulmonology has recommended 7 days of antibiotics and repeat CXR in 6 weeks, and signed off. (3) Deep vein thrombosis of left lower extremity Code(s): I82.402 - ACUTE EMBOLISM AND THOMBOS UNSP DEEP VEINS OF L LOW EXTREM Status: Acute Qualifiers: Chronicity: acute Comment: Coumadin therapeutic (4) CAD (coronary artery disease) Code(s): I25.10 - ATHSCL HEART DISEASE OF [place] CORONARY ARTERY W/O ANG PCTRS Status: Chronic (5) CKD (chronic kidney disease) stage 3, GFR 30-59 ml/min Code(s): N18.3 - CHRONIC KIDNEY DISEASE, STAGE 3 (MODERATE) Status: Chronic Comment: Stable, baseline renal function, avoid nephrotoxic agents and limit contrast exposure (6) Chronic systolic (congestive) heart failure Code(s): I50.22 - CHRONIC SYSTOLIC (CONGESTIVE) HEART FAILURE Status: Chronic (7) Diabetes type 2, controlled Code(s): E11.9 - TYPE 2 DIABETES MELLITUS WITHOUT COMPLICATIONS Status: Chronic Comment: ISS, serial accuchecks (8) Hypertension Code(s): I10 - ESSENTIAL (PRIMARY) HYPERTENSION Status: Chronic - Plan cont current plan of care, continue antibiotics Appreciate Pulmonology recommendations and Cardiology assistance. Patient -: will need 7 days of antibiotics. May consider switch to oral abx tomorrow -: and d/c if remains stable. * . - Discharge Day Encounter end time: 14:30
[2018-05-13] MEDS: Benzonatate 100 MG CAP PO SCH ×3 (09:23→21:08)
[2018-05-13] MEDS: Allopurinol 100 MG TAB PO SCH (09:23)
[2018-05-13] MEDS: guaiFENesin ER 600 MG TAB PO SCH ×2 (09:23→21:09)
[2018-05-13] MEDS: HYDROcodone/Acetaminophen 10/325 mg Tablet PO PRN ×2 (09:24→18:35)
[2018-05-13] MEDS: Digoxin 0.125 MG TAB PO SCH (09:24)
[2018-05-13] MEDS: Insulin Regular 300 UNITS/3 ML VIAL SC PRN ×3 (09:37→21:09)
[2018-05-13] MEDS: Rosuvastatin 20 MG TAB PO SCH (21:08)
[2018-05-14] MEDS: Piperacillin/Tazobactam 3.375 GM in Sodium Chloride 0.9% 100 ML IVPB SCH ×2 (00:15→06:46)
[2018-05-14] MEDS: HYDROcodone/Acetaminophen 10/325 mg Tablet PO PRN ×2 (00:27→09:16)
[2018-05-14] MEDS: traZODone HCl 50 MG TAB PO PRN (00:27)
[2018-05-14] MEDS: Vancomycin HCl 1.25 GM in Sodium Chloride 0.9% 250 ML 250 ML IVPB SCH (04:21)
[2018-05-14 06:41] LABS: INR-International Normal Ratio 3.6; Prothrombin Time 36.2 SEC (12.0-14.7)
--- NOTE | 2018-05-14 07:43 | PDOC.PN ---
- Subjective Encounter Start Date: 05/14/18 Encounter Start Time: 10:00 Subjective: Patient reports cough mostly gone. Still feels weak overall but able to -: ambulate with walker as at home. Ready to go home. - Objective Resuscitation Status - Order Detail: 05/12/18 11:08 Resuscitation Status Routine Resuscitation Status: DNAR: NO Resuscitation Discussed with: Patient and Son REBEKAH Reviewed: Yes Vital Signs & Weight: Vital Signs (12 hours) Temp Pulse Resp BP Pulse Ox 05/14/18 07:23 81 18 96 05/14/18 04:36 97.7 F 87 20 132/77 92 L 05/14/18 02:13 86 16 95 05/13/18 22:05 80 20 96 05/13/18 20:00 98.2 F 103 H 20 128/61 94 L Weight Admit Weight 185 lb Weight 215 lb 6.4 oz Most Recent Monitor Data Heart Rate from ECG 98 NIBP 102/64 NIBP BP-Mean 76 Respiration from ECG 35 SpO2 90 I&O: 05/13/18 05/14/18 05/15/18 06:59 06:59 06:59 Intake Total 2182 1078 Output Total 750 450 Balance 1432 628 Result Diagrams: 05/13/18 02:12 05/13/18 02:12 Additional Labs: Accuchecks 05/14/18 05/13/18 05/13/18 05:14 20:24 16:49 POC Glucose 242 H 290 H 191 H 05/13/18 11:23 POC Glucose 288 H Phys Exam - Physical Examination Constitutional: NAD HEENT: moist MMs Respiratory: no wheezing, no rales, no rhonchi Cardiovascular: no significant murmur, irregular no tachycardia Gastrointestinal: soft, positive bowel sounds Neurological: non-focal, moves all 4 limbs Psychiatric: normal affect, A&O x 3 Dx/Plan (1) Atrial fibrillation with rapid ventricular response Code(s): I48.91 - UNSPECIFIED ATRIAL FIBRILLATION Status: Acute Comment: Rate now controlled (2) Sepsis Code(s): A41.9 - SEPSIS, UNSPECIFIED ORGANISM Status: Resolved Qualifiers: Sepsis type: sepsis due to unspecified organism Qualified Code(s): A41.9 - Sepsis, unspecified organism Comment: Fever resolved and HR normalized. Possible early pneumonia per Dr. Bull. On IV Abx. Pulmonology has recommended 7 days of antibiotics and repeat CXR in 6 weeks, and signed off. (3) Deep vein thrombosis of left lower extremity Code(s): I82.402 - ACUTE EMBOLISM AND THOMBOS UNSP DEEP VEINS OF L LOW EXTREM Status: Acute Qualifiers: Chronicity: acute Comment: Coumadin therapeutic (4) CAD (coronary artery disease) Code(s): I25.10 - ATHSCL HEART DISEASE OF [place] CORONARY ARTERY W/O ANG PCTRS Status: Chronic (5) CKD (chronic kidney disease) stage 3, GFR 30-59 ml/min Code(s): N18.3 - CHRONIC KIDNEY DISEASE, STAGE 3 (MODERATE) Status: Chronic Comment: Stable, baseline renal function, avoid nephrotoxic agents and limit contrast exposure (6) Chronic systolic (congestive) heart failure Code(s): I50.22 - CHRONIC SYSTOLIC (CONGESTIVE) HEART FAILURE Status: Chronic (7) Diabetes type 2, controlled Code(s): E11.9 - TYPE 2 DIABETES MELLITUS WITHOUT COMPLICATIONS Status: Chronic Comment: ISS, serial accuchecks (8) Hypertension Code(s): I10 - ESSENTIAL (PRIMARY) HYPERTENSION Status: Chronic - Plan cont current plan of care, continue antibiotics, PT/OT Switch to oral antibiotics and d/c home. Complete 7 day course of -: antibiotics. Has home health already. F/u with Dr. Yost in 1-2 weeks. * . - Discharge Day Encounter end time: 10:35
[2018-05-14] MEDS ORDERED: Cefdinir 300 MG CAP PO SCH (09:00)
[2018-05-14] MEDS: Digoxin 0.125 MG TAB PO SCH (09:15)
[2018-05-14] MEDS: guaiFENesin ER 600 MG TAB PO SCH (09:15)
[2018-05-14] MEDS: Benzonatate 100 MG CAP PO SCH (09:15)
[2018-05-14] MEDS: Allopurinol 100 MG TAB PO SCH (09:15)
[2018-05-14] MEDS: Insulin Regular 300 UNITS/3 ML VIAL SC PRN ×2 (09:17→12:40)
[2018-05-14 09:32] VITALS: BP 145/85; TEMP 98.1
[2018-05-14] MEDS ORDERED: Warfarin Sodium 5 MG TAB PO SCH (17:00)
--- NOTE | 2018-05-15 05:53 | DIS ---
DATE OF ADMISSION: 05/11/2018 DATE OF DISCHARGE: 05/14/2018 PRIMARY CARE PHYSICIAN: Kai Mackey MD REASON FOR ADMISSION: Febrile illness and atrial fibrillation with rapid ventricular response. DISCHARGE DIAGNOSES: 1. Sepsis, resolved. 2. Pneumonia. 3. Atrial fibrillation with rapid ventricular response, controlled. 4. Deep venous thrombosis. 5. Coronary artery disease. 6. Chronic kidney disease. 7. Chronic systolic congestive heart failure. 8. Diabetes mellitus type 2. 9. Hypertension. CONSULTATIONS: 1. Pulmonology, Dr. Bull. 2. Cardiology, Dr. Yost. PROCEDURES PERFORMED: CT scan of the chest with contrast showing no evidence of pulmonary embolism, did have some bronchiectasis, and per Dr. Bull, possible early pneumonia. PERTINENT LABORATORY: Hemoglobin stable around 10. INR has been therapeutic, though currently around 3.6 in the last couple of days, so we will need to hold Coumadin for few days. Creatinine has been stable around 1.78. SUMMARY OF HOSPITAL COURSE: This is an 88-year-old male, who recently discharged from the hospital with a significant hematoma of his right thigh that had been evacuated with a wound VAC in place. He has had a blood clot in his left leg since he was off the Coumadin previously so he is back on it. He came to the hospital complaining of fever for 1 day and temperature has spiked up to 102 and then in the emergency room, he was found to have atrial fibrillation with RVR in the 160s to 180s. He has previously been on control medications at home, but he had gotten bradycardiac so he has been off those. He was given Cardizem in the emergency room, however, this caused some hypotension, so he was switched to digoxin. The patient was admitted to the hospital, put on broad-spectrum antibiotics. Dr. Bull evaluated him and determined that he had likely early pneumonia, recommended 7 days of antibiotics. The patient's sepsis resolved quickly. He has some chronic renal insufficiency, however, this remained stable. His low blood pressure did improve. Dr. Yost, was consulted for Cardiology. He adjusted his digoxin dose and we will send him home on a low dose, though he may eventually need to be taken off it if he gets recurrent bradycardia. The patient is doing on the day of discharge. Cough has improved. No more fevers. He is ambulating with his walker and able to go to home. DISCHARGE MANAGEMENT: Discharged home. ACTIVITY: As tolerated with walker. DIET: Diabetic diet. MEDICATIONS: The patient is to resume all home medications except for his Coumadin which he is to hold for the next 3 days and he is to follow up with his primary care physician in the early next week for his Coumadin recheck. His home medications; 1. Albuterol as needed, 1 inhaler dispensed. 2. Tessalon Perles 200 mg 3 times a day, 20 caps dispensed. 3. Omnicef 300 mg twice a day, 8 caps dispensed. 4. Digoxin 0.125 mg daily, 30 caps dispensed. 5. Mucinex ER 600 mg q.12 hours, 14 tabs dispensed. Job ID: [id number]
--- NOTE | 2018-05-15 17:58 | EKG ---
Test Reason : Blood Pressure : / mmHG Vent. Rate : 177 BPM Atrial Rate : 108 BPM P-R Int : 000 ms QRS Dur : 082 ms QT Int : 262 ms P-R-T Axes : 000 054 215 degrees QTc Int : 449 ms Atrial fibrillation with rapid ventricular response Marked ST abnormality, possible lateral subendocardial injury Abnormal ECG Confirmed by YAJAIRA BRADFORD DO ([id number]), slot editor WALTER GOMEZ ([id number]) on 05/15/2018 5:57:54 PM Referred By: Confirmed By:YAJAIRA BRADFORD DO
== END 2018-05-14 14:30 | disposition home health service (06) | DRG 871 ==
LOC: ERS 22:28 → ERHOLD 05-11 03:30 → CCU 05-11 08:16 → 2NO 05-12 12:59
PROVIDERS: ADMIT Internal Medicine; ATTEND Internal Medicine
DX: A41.9 Sepsis, unspecified organism (principal); J18.9 Pneumonia, unspecified organism; I82.402 Acute embolism and thrombosis of unspecified deep veins of left lower extremity; I13.0 Hypertensive heart and chronic kidney disease with heart failure and stage 1 through stage 4 chronic kidney disease, or unspecified chronic kidney disease; I50.22 Chronic systolic (congestive) heart failure; J47.0 Bronchiectasis with acute lower respiratory infection; Z66 Do not resuscitate; I25.10 Atherosclerotic heart disease of native coronary artery without angina pectoris; E11.22 Type 2 diabetes mellitus with diabetic chronic kidney disease; N18.3 Chronic kidney disease, stage 3 (moderate); Z86.718 Personal history of other venous thrombosis and embolism; Z79.01 Long term (current) use of anticoagulants; Z95.1 Presence of aortocoronary bypass graft; Z87.891 Personal history of nicotine dependence; Z95.5 Presence of coronary angioplasty implant and graft; K21.9 Gastro-esophageal reflux disease without esophagitis; Z85.830 Personal history of malignant neoplasm of bone; G89.29 Other chronic pain; M54.5 Low back pain; I25.2 Old myocardial infarction; E78.5 Hyperlipidemia, unspecified; I48.2 Chronic atrial fibrillation; Z85.72 Personal history of non-Hodgkin lymphomas
CPT/HCPCS: 36415; 36416; 71045; 71275; 80048; 80053; 80202; 81003; 81015; 83605; 83735; 83880; 84484; 85025; 85610; 85730; 87040; 87086; 87804; 93005; 94640; 94760; G8978-GP-CK; G8979-GP-CI; J1160; J1815; J2543; J2920; J3370; J7050; J7620

== ENCOUNTER 2018-08-08 16:51 | Emergency (ER) | payer MEDICARE ==
--- NOTE | 2018-08-08 17:57 | CT ---
CT BRAIN: 08/08/2018 PROVIDED CLINICAL HISTORY: Fall. Currently taking anticoagulants. COMPARISON: 10/08/2014 FINDINGS: The ventricular system appears normal in size and morphology. There is no evidence for intracranial hemorrhage or mass effect. The extracranial soft tissues and osseous structures demonstrate an unrem arkable CT appearance. IMPRESSION: No evidence for intracranial hemorrhage or mass effect. POS: [facility]
--- NOTE | 2018-08-08 18:01 | CT ---
CT CERVICAL SPINE WITHOUT CONTRAST: 08/08/2018 HISTORY: Fall. Trauma. Pain. COMPARISON: 10/08/2014 TECHNIQUE: Axial CT imaging at 2.5 mm intervals, from the skull base through the lung apices, with coronal and s agittal reformatted imaging. FINDINGS: There is atherosclerotic calcification of the cavernous carotid arteries. The imaged lung apices are unremarkable. The C1 ring is intact. There is moderate degenerative change at the atlantoaxial interspace. The cr aniocervical junction, occipital condyles, dens, C1-C2 articulation, and cervicothoracic junction dem onstrate no acute findings. There is mild anterolisthesis of C7 on T1, measuring approximately 3 mm. There is multilevel bilateral facet hypertrophy, most prominent on the right, at C2-C3, C3-C4, C4-C5, and C7-T1, and on the left at C6-C7 and C7-T1. there is disk space narrowing and degenerative endpl ate change at C2-C3 through C6-C7. No acute fracture or dislocation. No prevertebral soft tissue sw elling. 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 No acute fracture or evidence of dislocati on is noted. POS: [facility]
== END 2018-08-08 22:10 | disposition home or self-care (01) ==
LOC: ERS 16:51
DX: S00.03XA Contusion of scalp, initial encounter (principal); S50.312A Abrasion of left elbow, initial encounter; S50.311A Abrasion of right elbow, initial encounter; E11.40 Type 2 diabetes mellitus with diabetic neuropathy, unspecified; E78.5 Hyperlipidemia, unspecified; K21.9 Gastro-esophageal reflux disease without esophagitis; I48.91 Unspecified atrial fibrillation; N40.0 Benign prostatic hyperplasia without lower urinary tract symptoms; I50.9 Heart failure, unspecified; I25.2 Old myocardial infarction; Z87.891 Personal history of nicotine dependence; Z85.830 Personal history of malignant neoplasm of bone; Z86.718 Personal history of other venous thrombosis and embolism; Z79.82 Long term (current) use of aspirin; Z79.899 Other long term (current) drug therapy; W19.XXXA Unspecified fall, initial encounter
CPT/HCPCS: 70450; 72125

== ENCOUNTER 2018-12-10 19:05 | Inpatient (IN) | payer MEDICARE ==
[~2018-12-10 19:05] MED LIST changes: +ISOVUE-370 76%-LOCM 1 ML ONE; -Iopamidol 370 76% 100 ML VIAL ONE
--- NOTE | 2018-12-10 19:32 | RAD ---
Chest one view HISTORY: Dyspnea. Pneumonia. COMPARISON: 05/10/2018. FINDINGS: Cardiac silhouette is magnified and enlarged. Pulmonary vasculature upper limits of normal. Mediastinum is midline with postoperative changes and aortic calcification. No lobar consolidation or evidence of pneumothorax. ekg monitor tech leads overlie the chest. IMPRESSION: Cardiomegaly. Atherosclerosis. Chronic-type findings are stable.
[2018-12-10] MEDS ORDERED: Cefepime 2 GM VIAL ONE ×2 (19:42→19:44)
[2018-12-10] MEDS ORDERED: Acetaminophen 500 MG TAB ONE (19:45)
[2018-12-10 19:54] LABS: #Eosinphils 0.2 thou/uL (0.0-0.7); #Lymphocytes 3.8 thou/uL (1.20-3.40); #Monocytes 0.6 thou/uL (0.11-0.59); #Neutrophils 5.1 thou/uL (1.40-6.50); %Basophils 0.3 % (0.0-1.0); %Eosinophils 1.7 % (0.0-10.0); %Lymphocytes 39.3 % (21.0-51.0); %Monocytes 6.5 % (0.0-10.0); %Neutrophils 52.3 % (42.0-75.0); Hemoglobin 11.3 g/dL (14.0-18.0); Mean Corpuscular HGB CONC 35.9 g/dL (32.0-36.0); Mean Corpuscular Hemoglobin 33.1 pg (27.0-31.0); Mean Corpuscular Volume 92.2 fL (78.0-98.0); Mean Platelet Volume 7.6 fL (7.4-10.4); Platelet Count 126 thou/uL (130-400); RBC Distribution Width 14.9 % (11.5-14.5); White Blood Cell (WBC) Count 9.8 thou/uL (4.8-10.8)
[2018-12-10 19:59] LABS: Base Excess (BEa) -2.7 mEq/L (-2.0 to +3.0); CO2 Tension 32.8 mmHg (35.0-45.0); Calcium, Ionized 1.07 mmol/L (1.12-1.30); Potassium - ABG Lab 4.16 mmol/L (3.70-5.30); pH, Arterial 7.42 (7.35-7.45)
[2018-12-10 20:02] LABS: Bilirubin Negative (Negative); Blood, Urine Negative (Negative); Clarity Clear (Clear); Glucose, Urine (Dipstick) Normal (Negative); Leukocyte Negative Leu/uL (Negative); Nitrite Negative (Negative); Protein, Urine (Dipstick) Negative (Neg-Trace); Urobilinogen Normal mg/dL (Less than 2)
[2018-12-10 20:12] LABS: ALT (SGPT) 10 U/L (8-55); AST (SGOT) 16 U/L (5-34); Albumin 4.1 g/dL (3.4-4.8); Alkaline Phosphatase 86 U/L (40-150); Anion Gap 16 mmol/L (10-20); BUN (Urea Nitrogen) 29 mg/dL (8.4-25.7); Bilirubin, Total 0.9 mg/dL (0.2-1.2); CK (CPK) 44 U/L (30-200); Calc. Creatinine Clearance 0 mL/min (70-130); Calcium 8.9 mg/dL (7.8-10.44); Carbon Dioxide 23 mmol/L (23-31); Chloride 105 mmol/L (98-107); Estimated GFR-MDRD 31; Globulin 2.9 g/dL (2.4-3.5); Glucose 85 mg/dL (83-110); Lipase 27 U/L (8-78); Potassium 4.6 mmol/L (3.5-5.1); Sodium 139 mmol/L (136-145)
[2018-12-10 20:14] LABS: O2 Tension (PaO2) 50.4 mmHg (> 60.0)
[2018-12-10 20:15] LABS: Puncture Site LRA
--- NOTE | 2018-12-10 20:56 | CT ---
CT arteriogram chest with IV contrast and 3-D imaging HISTORY: Dyspnea. Chest pain. COMPARISON: 05/10/2018. FINDINGS: No filling defects are apparent within the central pulmonary arteries. Quality is compromis ed by diminished contrast due to low renal function, motion artifact, and timing of bolus. Most contrast is in the thoracic aorta where there is prominent calcification and normal branching of the great vessels at the aortic arch. Scattered atelectasis at each lung base. Larger parenchymal infiltrate in the left lower lobe with air bronchograms. No pneumothorax or bulky mediastinal adenopa thy. IMPRESSION: Left lower lobe pneumonia. Atherosclerosis.
[2018-12-10 21:47] LABS: PTT 49.5 SEC (22.9-36.1); Prothrombin Time 47.2 SEC (12.0-14.7)
[2018-12-10 21:49] LABS: INR-International Normal Ratio 5.2
[2018-12-10] MEDS ORDERED: Ondansetron ODT 4 MG TAB SL PRN (22:24)
[2018-12-10] MEDS ORDERED: Ondansetron PF 4 MG/2 ML Vial IVP PRN (22:24)
[2018-12-10] MEDS ORDERED: Sodium Chloride 0.9% 1,000 ML IV SCH (22:24)
[2018-12-11] MEDS ORDERED: Acetaminophen 650 MG Suppository PR PRN (02:22)
[2018-12-11] MEDS ORDERED: Calcium Carbonate 500 MG ChewTAB PO PRN (02:22)
[2018-12-11] MEDS ORDERED: Dextrose 50% Abboject 50 ML SYRINGE SLOW IVP PRN (02:25)
[2018-12-11] MEDS ORDERED: Insulin Regular 300 UNITS/3 ML VIAL SC PRN (02:25)
[2018-12-11] MEDS ORDERED: Polyethylene Glycol 3350 17 GM Packet PO PRN (02:25)
[2018-12-11] MEDS ORDERED: Dextrose 5% in Water 1,000 ML IV PRN (02:25)
--- NOTE | 2018-12-11 02:47 | HP ---
PRIMARY CARE PHYSICIAN: Dr. Kai Mackey. PRIMARY LICENSED PSYCHOLOGIST: Dr. Augustine Yost. PRIMARY SQL APPLICATION DEVELOPER: The patient had seen Dr. Hong in the past. CHIEF COMPLAINT: Cough and fever. HISTORY OF PRESENT ILLNESS: The patient is an 88-year-old man with chronic atrial fibrillation, on anticoagulation; hypertension and hyperlipidemia, presented to the emergency room with cough and shortness of breath over the last 1 week duration. The cough was initially dry; however, lately, has become productive. He also had fever and chills today. The patient gets short of breath on minimal exertion over the last 2 to 3 days. He denies any orthopnea or leg swelling. His temperature was 103.1. He denies any chest pain, palpitations, or syncope. No dysuria, hematuria, urgency, nausea, vomiting, diarrhea, or skin rash reported. In the emergency room, initial vital signs showed temperature 103.1, respirations of 33, blood pressure of 150/84, with pulse rate of 116, O2 saturation 95% on 2 L nasal cannula. He received vancomycin, cefepime with IV fluids in the emergency room. PAST MEDICAL HISTORY: 1. Chronic atrial fibrillation, on anticoagulation. 2. Coronary artery disease, status post CABG x2 in 1994. 3. Diabetes mellitus type 2. 4. CKD. 5. Hypertension. 6. Hyperlipidemia. 7. Former smoker. 8. History of esophageal diverticulum, GERD. 9. History of hepatitis. 10. History of DVT. PAST SURGICAL HISTORY: 1. Coronary artery bypass. 2. Laminectomy. 3. Colon resection. 4. TURP. 5. Drainage of the right thigh hematoma last year. ALLERGIES: THE PATIENT IS ALLERGIC TO SULFA AND LEVAQUIN. CURRENT HOME MEDICATIONS: The patient is on; 1. [place]. 2. Allopurinol. 3. Aspirin. 4. Valium. 5. Proscar. 6. Lasix 20 mg daily. 7. Gabapentin. 8. Glipizide. 9. Iron tablets. 10. Nystatin cream. 11. Protonix. 12. MiraLAX. 13. Crestor. 14. Trazodone. 15. Coenzyme Q10. 16. Warfarin. 17. Digoxin. SOCIAL HISTORY: Patient currently lives at home with his . He is full code. He is former smoker. He makes his own decision with the help of his family. FAMILY HISTORY: Negative for heart disease. REVIEW OF SYSTEMS: All other review of systems was reviewed and were found negative. PHYSICAL EXAMINATION: VITAL SIGNS: As discussed above. GENERAL: 88-year-old male, in mild respiratory distress, able to complete short phrases. HEENT: Head; atraumatic and normocephalic. Sclerae anicteric. Moist mucous membrane. No oral lesion. NECK: Supple. No JVD appreciated. No carotid bruit. LUNGS: Showed rales at left bases with diffuse expiratory wheezing. There was scattered rhonchi. There is accessory muscle use. HEART: S1, S2 present. Irregularly irregular. No rubs or gallops. ABDOMEN: Soft, nontender. Bowel sounds present. No rebound or guarding. No costovertebral angle tenderness. EXTREMITIES: No edema or calf tenderness. NEUROLOGY: Grossly nonfocal. Moves all 4 extremities. PSYCHIATRY: Alert, awake, oriented x3. SKIN: Warm and dry. LYMPH NODE: No palpable lymph nodes in the neck. PERIPHERAL VASCULAR: Radial pulses palpable bilaterally. MUSCULOSKELETAL: No joint swelling or tenderness. LABORATORY FINDINGS: WBC 9.8 with hemoglobin 11.3, hematocrit 31.4, platelet 126. INR 5.2. Blood gases showed pH 7.42, pCO2 of 32.8, PO2 of 50.4, and bicarbonate 21, on 2 L nasal cannula. BUN 29, creatinine 2.03. BNP was 225. Troponin was negative. Urinalysis was negative for wbc or bacteria. IMAGING STUDIES: Chest x-ray by my review showed questionable infiltrate at left base. CT angiogram of the chest was negative for pulmonary embolism. It showed left lower lobe infiltrate. EKG by my review showed atrial fibrillation with rapid ventricular response. Heart rate of 109. IMPRESSION: 1. Acute hypoxic respiratory failure secondary to pneumonia, suspected pneumococcal. 2. Supratherapeutic INR, probably secondary to recent antibiotic use. 3. Chronic kidney disease, stage 3. 4. Chronic anemia. 5. Thrombocytopenia. 6. Chronic atrial fibrillation, on anticoagulation. 7. History of deep vein thrombosis. 8. Diabetes mellitus type 2. 9. Hypertension. 10. Hyperlipidemia. 11. Coronary artery disease status post coronary artery bypass grafting. 12. Gastroesophageal reflux disease. 13. Benign prostatic hypertrophy. 14. Sulfa and Levaquin allergy. PLAN: The patient will be monitored on the telemetry unit. We will minimize IV fluids. We will check digoxin level in a.m. Monitor H and H closely due to hemoptysis. Nebulizer treatment every 4 hourly. We will continue IV cefepime. We will add oral doxycycline. We will repeat chest x-ray after 24 hours. We will consult Pulmonary, Dr. Montero. We will resume all of his home medications except for Coumadin and Lasix. We will resume aspirin after 24 to 48 hours. Patient will require 2 to 3 days for stabilization. Plan of care was discussed with the patient in detail. He stated understanding. Job ID: [id number]
[2018-12-11 06:13] VITALS: BMI 29.9
[2018-12-11 06:34] LABS: #Lymphocytes 3.2 thou/uL (1.20-3.40); #Neutrophils 8.3 thou/uL (1.40-6.50); %Basophils 0.2 % (0.0-1.0); %Eosinophils 0.4 % (0.0-10.0); %Lymphocytes 25.8 % (21.0-51.0); %Monocytes 7.7 % (0.0-10.0); %Neutrophils 65.9 % (42.0-75.0); Hemoglobin 10.6 g/dL (14.0-18.0); Mean Corpuscular Hemoglobin 32.6 pg (27.0-31.0); Mean Platelet Volume 8.1 fL (7.4-10.4); Platelet Count 117 thou/uL (130-400); RBC Distribution Width 15.1 % (11.5-14.5); Red Blood Cell (RBC) Count 3.25 mill/uL (4.70-6.10); White Blood Cell (WBC) Count 12.6 thou/uL (4.8-10.8)
[2018-12-11 06:40] LABS: Prothrombin Time 45.1 SEC (12.0-14.7)
[2018-12-11 06:42] LABS: INR-International Normal Ratio 4.9
[2018-12-11 06:56] LABS: Anion Gap 11 mmol/L (10-20); BUN (Urea Nitrogen) 30 mg/dL (8.4-25.7); Calc. Creatinine Clearance 36 mL/min (70-130); Carbon Dioxide 25 mmol/L (23-31); Chloride 108 mmol/L (98-107); Estimated GFR-MDRD 33; Glucose 94 mg/dL (83-110); Magnesium 1.8 mg/dL (1.6-2.6); Potassium 5.1 mmol/L (3.5-5.1); Sodium 139 mmol/L (136-145)
[2018-12-11] MEDS: Allopurinol 100 MG TAB PO SCH (08:38)
[2018-12-11] MEDS: Doxycycline 100 MG CAP PO SCH ×2 (08:38→21:30)
[2018-12-11] MEDS: Gabapentin 300 MG CAP PO SCH ×3 (08:38→21:31)
[2018-12-11] MEDS: Senokot S 8.6-50 MG TAB PO SCH ×2 (08:39→21:32)
[2018-12-11] MEDS: guaiFENesin ER 600 MG TAB PO SCH ×2 (08:39→21:31)
[2018-12-11] MEDS: glipiZIDE 5 MG TAB PO SCH (08:39)
[2018-12-11] MEDS: Saccharomyces boulardii 250 MG CAP PO SCH (08:39)
[2018-12-11] MEDS: Digoxin 0.125 MG TAB PO SCH (08:39)
[2018-12-11] MEDS: Finasteride 5 MG TAB PO SCH (08:40)
[2018-12-11] MEDS: Acetaminophen 325 MG TAB PO PRN ×2 (08:40→16:37)
[2018-12-11] MEDS: Cefepime 1 GM in Sodium Chloride 0.9% 100 ML IVPB SCH ×2 (08:48→21:29)
[2018-12-11] MEDS: Sodium Chloride 0.9% 1,000 ML IV SCH ×2 (08:49→19:25)
[2018-12-11] MEDS ORDERED: Famotidine 20 MG TAB PO SCH (09:00)
--- NOTE | 2018-12-11 12:17 | CON ---
DATE OF CONSULTATION: HISTORY OF PRESENT ILLNESS: Dustin Topete is an 88-year-old obese gentleman, BMI 30, 209 pounds, 5 feet 10, who with remote history of smoking many years ago, quit smoking in 1960s, presented with fevers, chills, sweats, productive cough, and green sputum. Temperature 103.1. X-ray was unremarkable, but CT showed left retrocardiac density. PAST MEDICAL HISTORY: Pertinent for chronic pain, arthritis, coronary artery disease, diabetes, peripheral neuropathy, reflux, BPH, chronic back pain, hepatitis, previous DVT. PAST SURGICAL HISTORY: Including CABG, laminectomy, colon resection, shoulder surgery, colon resection. MEDICATIONS: Home medications include; 1. Proscar 5. 2. Coumadin 5. 3. Allopurinol 100. 4. Digoxin 0.25. 5. Valium. 6. Gabapentin 3 times a day. 7. Lasix 20. 8. Hydrocodone. 9. CQ. 10. Crestor. 11. Trazodone. ALLERGIES: SULFA, LEVAQUIN. SOCIAL AND FAMILY HISTORY: He said he worked in 30 different jobs. No asbestos exposure. Alcohol, none. Substance abuse, none. REVIEW OF SYSTEMS: Ten point negative. PHYSICAL EXAMINATION: VITAL SIGNS: Temperature 98, pulse 81, blood pressure 102/50, saturations 98% on 2 L. CHEST: Minimal crackles, left greater than right. CARDIAC: Normal S1 and S2. No gallops. ABDOMEN: No masses. LABORATORY DATA: INR is 4.9. PO2 is 50, pCO2 of 32, pH 7.42 on arterial blood gas on 2 L. Creatinine 1.9, BUN is 30. IMPRESSION: 1. Respiratory failure with chronic obstructive pulmonary disease. 2. Left pneumonia. 3. Diabetes. 4. Neuropathy. 5. Renal failure. I agree with present antibiotic coverage with doxycycline, Maxipime. I have added steroids. I have added neb treatments to his present regime. Sputum being cultured, PT, supportive Care. Consultation note, 70 minutes, 50% direct patient care. Dr. Bull will notify to see him in the past. Job ID: [id number]
--- NOTE | 2018-12-11 18:05 | PDOC.HOSPP ---
- Subjective Subjective: Mr. Topete was seen today in follow-up of pneumonia with hemoptysis. He says he has been coughing up some blood, but it is beginning to clear. He denies any chest pain or difficulty breathing. - Objective Vital Signs & Weight: Vital Signs (12 hours) Temp Pulse Resp BP Pulse Ox 12/11/18 16:00 98.2 F 57 L 18 103/51 L 96 12/11/18 13:51 67 16 97 12/11/18 12:00 98.2 F 68 18 103/53 L 93 L 12/11/18 08:39 81 12/11/18 07:34 98.3 F 81 17 102/50 L 96 12/11/18 06:22 98 12/11/18 06:20 64 16 98 Weight Weight 209 lb Result Diagrams: 12/11/18 06:02 12/11/18 06:02 Additional Labs: Accuchecks 12/11/18 05:19 POC Glucose 104 ROS - Review of Systems All systems: All other ROS were reviewed and found negative. - Medication Medications: Active Medications Generic Name Dose Route Start Last Admin Trade Name Freq PRN Reason Stop Dose Admin Acetaminophen 650 mg 12/11/18 08:19 12/11/18 16:37 Tylenol PO 650 mg Q4H PRN Administration Headache/Fever or Pain Albuterol/Ipratropium 3 ml 12/11/18 13:00 12/11/18 13:51 Duoneb NEB 3 ml [id number] JOHNNY Administration Allopurinol 100 mg 12/11/18 09:00 12/11/18 08:38 Zyloprim PO 100 mg DAILY JOHNNY Administration Digoxin 0.125 mg 12/11/18 09:00 12/11/18 08:39 Lanoxin PO 0.125 mg DAILY JOHNNY Administration Doxycycline Hyclate 100 mg 12/11/18 09:00 12/11/18 08:38 Vibramycin PO 100 mg BID JOHNNY Administration Finasteride 5 mg 12/11/18 09:00 12/11/18 08:40 Proscar PO 5 mg DAILY JOHNNY Administration Gabapentin 600 mg 12/11/18 09:00 12/11/18 16:36 Neurontin PO 600 mg TID JOHNNY Administration Glipizide 5 mg 12/11/18 07:30 12/11/18 08:39 Glucotrol PO 5 mg DAILY-AC JOHNNY Administration Guaifenesin 600 mg 12/11/18 09:00 12/11/18 08:39 Mucinex PO 600 mg Q12HR JOHNNY Administration Sodium Chloride 1,000 mls @ 50 mls/hr 12/11/18 02:30 12/11/18 08:49 Normal Saline 0.9% IV 12/12/18 02:31 1,000 mls .Q20H JOHNNY Administration Cefepime HCl 1 gm/ Sodium 100 mls @ 200 mls/hr 12/11/18 08:00 12/11/18 08:48 Chloride IVPB 100 mls 0800,2000 JOHNNY Administration Pantoprazole Sodium 40 mg 12/11/18 09:00 12/11/18 08:39 Protonix PO 40 mg BID JOHNNY Administration Saccharomyces Boulardii 250 mg 12/11/18 09:00 12/11/18 08:39 Florastor PO 250 mg DAILY JOHNNY Administration Senna/Docusate Sodium 1 tab 12/11/18 09:00 12/11/18 08:39 Senokot S PO 1 tab BID JOHNNY Administration - Exam Eye: PERRL, anicteric sclera ENT: normocephalic atraumatic, no oropharyngeal lesions Neck: supple, symmetric, no Thyromegaly, no carotid bruit Respiratory: no rales, no ronchi, wheezes (+ mild bilateral wheezing) Gastrointestinal: soft, non-tender, non-distended, normal bowel sounds Extremities: no cyanosis, 1+ LE edema (trace pedal edema) Hosp A/P (1) Pneumonia, community acquired Code(s): J18.9 - PNEUMONIA, UNSPECIFIED ORGANISM Status: Acute (2) Supratherapeutic INR Code(s): R79.1 - ABNORMAL COAGULATION PROFILE Status: Acute (3) CKD (chronic kidney disease) stage 3, GFR 30-59 ml/min Code(s): N18.3 - CHRONIC KIDNEY DISEASE, STAGE 3 (MODERATE) Status: Chronic (4) Chronic atrial fibrillation Code(s): I48.2 - CHRONIC ATRIAL FIBRILLATION Status: Chronic (5) Diabetes type 2, controlled Code(s): E11.9 - TYPE 2 DIABETES MELLITUS WITHOUT COMPLICATIONS Status: Chronic (6) Hypertension Code(s): I10 - ESSENTIAL (PRIMARY) HYPERTENSION Status: Chronic - Plan * Pneumona- communty acquired- will continue the current antibiotic regimen * Hempotysis- due to pneumonia with supra-therapeutic INR- continue to hold coumadin, and monitor the INR daily * Pulmonary has also been consulted * HTN- blood pressure is stable * AFIB- heart rate is stable
[2018-12-11] MEDS ORDERED: Prevnar 13-Val Conj/PF 0.5 ML SYRINGE IM ONE (21:00)
[2018-12-11] MEDS: Rosuvastatin 20 MG TAB PO SCH (21:30)
[2018-12-11] MEDS: Ubidecarenone 50 MG CAP PO SCH (21:30)
[2018-12-11] MEDS: HYDROcodone/Acetaminophen 5/325 mg Tablet PO PRN (21:36)
[2018-12-11] MEDS: traZODone HCl 50 MG TAB PO PRN (21:36)
[2018-12-12] MEDS: HYDROcodone/Acetaminophen 5/325 mg Tablet PO PRN ×2 (01:43→06:10)
[2018-12-12 05:58] LABS: #Eosinphils 0.1 thou/uL (0.0-0.7); #Lymphocytes 2.8 thou/uL (1.20-3.40); #Monocytes 0.6 thou/uL (0.11-0.59); #Neutrophils 3.7 thou/uL (1.40-6.50); %Basophils 0.2 % (0.0-1.0); %Eosinophils 0.9 % (0.0-10.0); %Lymphocytes 39.3 % (21.0-51.0); %Monocytes 8.1 % (0.0-10.0); %Neutrophils 51.5 % (42.0-75.0); Hemoglobin 9.8 g/dL (14.0-18.0); Mean Corpuscular HGB CONC 35.1 g/dL (32.0-36.0); Mean Platelet Volume 8.1 fL (7.4-10.4); Platelet Count 92 thou/uL (130-400); RBC Distribution Width 15.1 % (11.5-14.5); Red Blood Cell (RBC) Count 2.97 mill/uL (4.70-6.10); White Blood Cell (WBC) Count 7.2 thou/uL (4.8-10.8)
[2018-12-12 06:01] LABS: INR-International Normal Ratio 3.7; Prothrombin Time 36.4 SEC (12.0-14.7)
[2018-12-12 06:14] LABS: Anion Gap 10 mmol/L (10-20); BUN (Urea Nitrogen) 28 mg/dL (8.4-25.7); Calc. Creatinine Clearance 35 mL/min (70-130); Calcium 7.8 mg/dL (7.8-10.44); Carbon Dioxide 21 mmol/L (23-31); Chloride 112 mmol/L (98-107); Estimated GFR-MDRD 32; Glucose 92 mg/dL (83-110); Potassium 4.8 mmol/L (3.5-5.1); Sodium 138 mmol/L (136-145)
[2018-12-12] MEDS: Cefepime 1 GM in Sodium Chloride 0.9% 100 ML IVPB SCH ×2 (08:13→21:15)
[2018-12-12] MEDS: Senokot S 8.6-50 MG TAB PO SCH ×2 (08:14→21:18)
[2018-12-12] MEDS: Doxycycline 100 MG CAP PO SCH ×2 (08:14→21:17)
[2018-12-12] MEDS: Gabapentin 300 MG CAP PO SCH ×3 (08:14→21:18)
[2018-12-12] MEDS: Saccharomyces boulardii 250 MG CAP PO SCH (08:15)
[2018-12-12] MEDS: Allopurinol 100 MG TAB PO SCH (08:15)
[2018-12-12] MEDS: Finasteride 5 MG TAB PO SCH (08:15)
[2018-12-12] MEDS: guaiFENesin ER 600 MG TAB PO SCH ×2 (08:15→21:18)
[2018-12-12] MEDS: Digoxin 0.125 MG TAB PO SCH (08:15)
[2018-12-12] MEDS: glipiZIDE 5 MG TAB PO SCH (08:15)
[2018-12-12] MEDS: predniSONE 20 MG TAB PO SCH (08:15)
--- NOTE | 2018-12-12 10:47 | PRG ---
DATE OF SERVICE: 12/12/2018 SUBJECTIVE: This morning, the patient is better. He is weak. He is still coughing some yellow sputum. OBJECTIVE: VITAL SIGNS: Temperature 99, pulse 105, blood pressure 107/58, sats 92 on 3 L. CHEST: Bilateral rhonchi and crackles. CARDIAC: Normal S1, S2. No gallops. ABDOMEN: No mass. LABORATORY DATA: So far, sputum culture shows moderate gram-positive cocci, gram-negative rods. Culture pending. Creatinine 1.9. IMPRESSION: 1. Pneumonia. 2. Respiratory failure. 3. Severe deconditioning. 4. Chronic renal failure. PLAN: Continue aggressive PT. Continue antibiotics, neb treatments, supportive care. We will follow. Job ID: [id number]
--- NOTE | 2018-12-12 12:40 | RAD ---
PA AND LATERAL VIEWS CHEST: Date: 12/12/18 HISTORY: Pneumonia follow-up. FINDINGS: Comparison made with exam of 12/10/18. There are bibasilar infiltrates with accompanying small effusions. There is mild pulmonary vascular c ongestion. Changes of median sternotomy again seen. The heart size is stable. No pneumothoraces are n oted. IMPRESSION: Findings are consistent with pneumonia. POS: RD
--- NOTE | 2018-12-12 16:38 | PDOC.HOSPP ---
- Subjective Subjective: Mr. Topete was seen today at approximately 12:30 for follow-up of pneumonia and hemoptysis. He does not have any new complaints. He continues to cough up some blood and thick yellow sputum. He denies chest pain or dyspnea. - Objective Vital Signs & Weight: Vital Signs (12 hours) Temp Pulse Pulse Pulse Resp BP BP 12/12/18 16:00 98.7 F 72 18 12/12/18 13:20 116 H 155 H 125/58 L 138/76 12/12/18 12:39 81 16 12/12/18 11:36 98.6 F 93 18 12/12/18 08:15 104 H 12/12/18 08:00 99.2 F 104 H 17 12/12/18 06:36 88 20 BP Pulse Ox 12/12/18 16:00 124/60 96 12/12/18 13:20 12/12/18 12:39 96 12/12/18 11:36 133/67 94 L 12/12/18 08:15 12/12/18 08:00 107/58 L 92 L 12/12/18 06:36 95 Weight Weight 209 lb Result Diagrams: 12/12/18 05:24 12/12/18 05:24 Additional Labs: Accuchecks 12/12/18 12/12/18 12/11/18 10:54 05:26 20:35 POC Glucose 121 H 95 124 H ROS - Review of Systems All systems: All other ROS were reviewed and found negative. - Medication Medications: Active Medications Generic Name Dose Route Start Last Admin Trade Name Freq PRN Reason Stop Dose Admin Acetaminophen 650 mg 12/11/18 08:19 12/11/18 16:37 Tylenol PO 650 mg Q4H PRN Administration Headache/Fever or Pain Hydrocodone Bitart/Acetaminophen 1 tab 12/11/18 15:11 12/12/18 06:10 [place] 5/325 PO 1 tab Q4H PRN Administration Moderate Pain (4-6) Albuterol/Ipratropium 3 ml 12/11/18 13:00 12/12/18 12:39 Duoneb NEB 3 ml [id number] JOHNNY Administration Allopurinol 100 mg 12/11/18 09:00 12/12/18 08:15 Zyloprim PO 100 mg DAILY JOHNNY Administration Coenzyme Q10 100 mg 12/11/18 21:00 12/11/18 21:30 Coenzyme Q10 PO 100 mg QPM JOHNNY Administration Digoxin 0.125 mg 12/11/18 09:00 12/12/18 08:15 Lanoxin PO 0.125 mg DAILY JOHNNY Administration Doxycycline Hyclate 100 mg 12/11/18 09:00 12/12/18 08:14 Vibramycin PO 100 mg BID JOHNNY Administration Finasteride 5 mg 12/11/18 09:00 12/12/18 08:15 Proscar PO 5 mg DAILY JOHNNY Administration Gabapentin 600 mg 12/11/18 09:00 12/12/18 16:10 Neurontin PO 600 mg TID JOHNNY Administration Glipizide 5 mg 12/11/18 07:30 12/12/18 08:15 Glucotrol PO 5 mg DAILY-AC JOHNNY Administration Guaifenesin 600 mg 12/11/18 09:00 12/12/18 08:15 Mucinex PO 600 mg Q12HR JOHNNY Administration Cefepime HCl 1 gm/ Sodium 100 mls @ 200 mls/hr 12/11/18 08:00 12/12/18 08:13 Chloride IVPB 100 mls 0800,1999 JOHNNY Administration Pantoprazole Sodium 40 mg 12/11/18 09:00 12/12/18 08:14 Protonix PO 40 mg BID JOHNNY Administration Prednisone 20 mg 12/12/18 08:00 12/12/18 08:15 Prednisone PO 12/17/18 08:01 20 mg QAM-WM JOHNNY Administration Rosuvastatin Calcium 20 mg 12/11/18 21:00 12/11/18 21:30 Crestor PO 20 mg HS JOHNNY Administration Saccharomyces Boulardii 250 mg 12/11/18 09:00 12/12/18 08:15 Florastor PO 250 mg DAILY JOHNNY Administration Senna/Docusate Sodium 1 tab 12/11/18 09:00 12/12/18 08:14 Senokot S PO 1 tab BID JOHNNY Administration Trazodone HCl 50 mg 12/11/18 02:25 12/11/18 21:36 Desyrel PO 50 mg HS PRN Administration Anxiety - Exam NAD, awake alert Eye: PERRL, anicteric sclera ENT: normocephalic atraumatic, no oropharyngeal lesions, moist mucosa Neck: supple Heart: RRR, no murmur, no gallops, no rubs Respiratory: no ronchi, normal chest expansion, wheezes (+ bilateral wheezing as well as rales at the bases) Gastrointestinal: soft, non-tender, non-distended, normal bowel sounds, no palpable masses, no hepatomegaly Extremities: no cyanosis, no clubbing, 1+ LE edema (+ trace pedal edema) Neurological: CN's grossly intact, no focal deficits Hosp A/P (1) Pneumonia, community acquired Code(s): J18.9 - PNEUMONIA, UNSPECIFIED ORGANISM Status: Acute (2) Supratherapeutic INR Code(s): R79.1 - ABNORMAL COAGULATION PROFILE Status: Acute (3) CKD (chronic kidney disease) stage 3, GFR 30-59 ml/min Code(s): N18.3 - CHRONIC KIDNEY DISEASE, STAGE 3 (MODERATE) Status: Chronic (4) Chronic atrial fibrillation Code(s): I48.2 - CHRONIC ATRIAL FIBRILLATION Status: Chronic (5) Diabetes type 2, controlled Code(s): E11.9 - TYPE 2 DIABETES MELLITUS WITHOUT COMPLICATIONS Status: Chronic (6) Hypertension Code(s): I10 - ESSENTIAL (PRIMARY) HYPERTENSION Status: Chronic - Plan * Pneumonia, community acquired with hemoptysis- continue Cefepime and Doxycycline, steroids and nebs treatments * Supratherapeutic INR- INR today is 3.7- will continue to hold coumadin * DM- blood glucose is stable * HTN-blood pressure is stable * AFIB- his heart rate is stable
[2018-12-12] MEDS: Insulin Regular 300 UNITS/3 ML VIAL SC PRN (19:05)
[2018-12-12] MEDS: Rosuvastatin 20 MG TAB PO SCH (21:17)
[2018-12-12] MEDS: Ubidecarenone 50 MG CAP PO SCH (21:17)
[2018-12-12] MEDS: traZODone HCl 50 MG TAB PO PRN (21:30)
[2018-12-13 05:53] LABS: INR-International Normal Ratio 2.7; Prothrombin Time 28.6 SEC (12.0-14.7)
[2018-12-13] MEDS: Doxycycline 100 MG CAP PO SCH ×2 (09:40→20:36)
[2018-12-13] MEDS: Saccharomyces boulardii 250 MG CAP PO SCH (09:40)
[2018-12-13] MEDS: Allopurinol 100 MG TAB PO SCH (09:40)
[2018-12-13] MEDS: Gabapentin 300 MG CAP PO SCH ×3 (09:40→20:35)
[2018-12-13] MEDS: Finasteride 5 MG TAB PO SCH (09:40)
[2018-12-13] MEDS: Digoxin 0.125 MG TAB PO SCH (09:40)
[2018-12-13] MEDS: glipiZIDE 5 MG TAB PO SCH (09:41)
[2018-12-13] MEDS: Senokot S 8.6-50 MG TAB PO SCH ×2 (09:41→20:36)
[2018-12-13] MEDS: guaiFENesin ER 600 MG TAB PO SCH ×2 (09:41→20:35)
[2018-12-13] MEDS: predniSONE 20 MG TAB PO SCH (09:42)
[2018-12-13] MEDS: Cefepime 1 GM in Sodium Chloride 0.9% 100 ML IVPB SCH ×2 (09:42→20:36)
[2018-12-13] MEDS: Insulin Regular 300 UNITS/3 ML VIAL SC PRN ×2 (12:42→17:40)
--- NOTE | 2018-12-13 16:35 | PDOC.HOSPP ---
- Subjective Subjective: Mr. Topete was seen today in follow-up of Pneumonia with Hempotysis at approximately 11:45am. He does not have any new complaints. He is still coughing but it is improving. He denies any chest pain or shortness of breath. - Objective Vital Signs & Weight: Vital Signs (12 hours) Temp Pulse Resp BP Pulse Ox 12/13/18 13:12 94 12 12/13/18 12:00 96.8 F L 62 18 111/57 L 98 12/13/18 09:40 84 12/13/18 07:41 98.0 F 84 18 119/58 L 94 L 12/13/18 07:07 70 16 91 L Weight Weight 209 lb Result Diagrams: 12/12/18 05:24 12/12/18 05:24 Additional Labs: Accuchecks 12/13/18 12/13/18 12/12/18 10:22 05:23 20:29 POC Glucose 151 H 145 H 244 H 12/12/18 16:54 POC Glucose 257 H ROS - Review of Systems All systems: All other ROS were reviewed and found negative. - Medication Medications: Active Medications Generic Name Dose Route Start Last Admin Trade Name Freq PRN Reason Stop Dose Admin Acetaminophen 650 mg 12/11/18 08:19 12/11/18 16:37 Tylenol PO 650 mg Q4H PRN Administration Headache/Fever or Pain Hydrocodone Bitart/Acetaminophen 1 tab 12/11/18 15:11 12/12/18 06:10 [place] 5/325 PO 1 tab Q4H PRN Administration Moderate Pain (4-6) Albuterol/Ipratropium 3 ml 12/11/18 13:00 12/13/18 13:12 Duoneb NEB 3 ml [id number] JOHNNY Administration Allopurinol 100 mg 12/11/18 09:00 12/13/18 09:40 Zyloprim PO 100 mg DAILY JOHNNY Administration Coenzyme Q10 100 mg 12/11/18 21:00 12/12/18 21:17 Coenzyme Q10 PO 100 mg QPM JOHNNY Administration Digoxin 0.125 mg 12/11/18 09:00 12/13/18 09:40 Lanoxin PO 0.125 mg DAILY JOHNNY Administration Doxycycline Hyclate 100 mg 12/11/18 09:00 12/13/18 09:40 Vibramycin PO 100 mg BID JOHNNY Administration Finasteride 5 mg 12/11/18 09:00 12/13/18 09:40 Proscar PO 5 mg DAILY JOHNNY Administration Gabapentin 600 mg 12/11/18 09:00 12/13/18 09:40 Neurontin PO 600 mg TID JOHNNY Administration Glipizide 5 mg 12/11/18 07:30 12/13/18 09:41 Glucotrol PO 5 mg DAILY-AC JOHNNY Administration Guaifenesin 600 mg 12/11/18 09:00 12/13/18 09:41 Mucinex PO 600 mg Q12HR JOHNNY Administration Cefepime HCl 1 gm/ Sodium 100 mls @ 200 mls/hr 12/11/18 08:00 12/13/18 09:42 Chloride IVPB 100 mls 0800,2000 JOHNNY Administration Insulin Human Regular 0 units 12/11/18 02:25 12/13/18 12:42 Humulin R SC 2 unit .MILD SLIDING SCALE PRN Administration Mild Correctional Scale Pantoprazole Sodium 40 mg 12/11/18 09:00 12/13/18 09:43 Protonix PO 40 mg BID JOHNNY Administration Prednisone 20 mg 12/12/18 08:00 12/13/18 09:42 Prednisone PO 12/17/18 08:01 20 mg QAM-WM JOHNNY Administration Rosuvastatin Calcium 20 mg 12/11/18 21:00 12/12/18 21:17 Crestor PO 20 mg HS JOHNNY Administration Saccharomyces Boulardii 250 mg 12/11/18 09:00 12/13/18 09:40 Florastor PO 250 mg DAILY JOHNNY Administration Senna/Docusate Sodium 1 tab 12/11/18 09:00 12/13/18 09:41 Senokot S PO 1 tab BID JOHNNY Administration Trazodone HCl 50 mg 12/11/18 02:25 12/12/18 21:30 Desyrel PO 50 mg HS PRN Administration Anxiety - Exam Eye: PERRL Respiratory: rales (+ rales at the right base,), wheezes (+ scattered faint wheezing) Gastrointestinal: soft, non-tender, non-distended, normal bowel sounds, no palpable masses, no hepatomegaly Extremities: no cyanosis, no edema Hosp A/P (1) Pneumonia, community acquired Code(s): J18.9 - PNEUMONIA, UNSPECIFIED ORGANISM Status: Acute (2) Supratherapeutic INR Code(s): R79.1 - ABNORMAL COAGULATION PROFILE Status: Acute (3) CKD (chronic kidney disease) stage 3, GFR 30-59 ml/min Code(s): N18.3 - CHRONIC KIDNEY DISEASE, STAGE 3 (MODERATE) Status: Chronic (4) Chronic atrial fibrillation Code(s): I48.2 - CHRONIC ATRIAL FIBRILLATION Status: Chronic (5) Diabetes type 2, controlled Code(s): E11.9 - TYPE 2 DIABETES MELLITUS WITHOUT COMPLICATIONS Status: Chronic (6) Hypertension Code(s): I10 - ESSENTIAL (PRIMARY) HYPERTENSION Status: Chronic - Plan * Pneumonia with Hempotysis- continue Cefepime and Doxycyline * AFIB- his heart rate is stable, * His INR is now down to 2.7, anticipate re-starting coumadin tomorrow * DM- blood glucose is stable * CKD- stable
[2018-12-13] MEDS: Ubidecarenone 50 MG CAP PO SCH (20:35)
[2018-12-13] MEDS: Rosuvastatin 20 MG TAB PO SCH (20:35)
[2018-12-13] MEDS: traZODone HCl 50 MG TAB PO PRN (20:36)
[2018-12-14] MEDS: HYDROcodone/Acetaminophen 5/325 mg Tablet PO PRN (02:39)
[2018-12-14 05:31] LABS: INR-International Normal Ratio 1.7; Prothrombin Time 19.6 SEC (12.0-14.7)
[2018-12-14] MEDS: predniSONE 20 MG TAB PO SCH (09:14)
[2018-12-14] MEDS: glipiZIDE 5 MG TAB PO SCH (09:14)
[2018-12-14] MEDS: Doxycycline 100 MG CAP PO SCH (09:14)
[2018-12-14] MEDS: Allopurinol 100 MG TAB PO SCH (09:14)
[2018-12-14] MEDS: Saccharomyces boulardii 250 MG CAP PO SCH (09:15)
[2018-12-14] MEDS: Gabapentin 300 MG CAP PO SCH (09:15)
[2018-12-14] MEDS: Finasteride 5 MG TAB PO SCH (09:15)
[2018-12-14] MEDS: Digoxin 0.125 MG TAB PO SCH (09:15)
[2018-12-14] MEDS: guaiFENesin ER 600 MG TAB PO SCH (09:15)
[2018-12-14] MEDS: Senokot S 8.6-50 MG TAB PO SCH (09:16)
[2018-12-14] MEDS: Cefepime 1 GM in Sodium Chloride 0.9% 100 ML IVPB SCH (09:32)
[2018-12-14 11:33] VITALS: TEMP 97.7
[2018-12-14 12:38] VITALS: BP 126/58
--- NOTE | 2018-12-14 13:29 | PDOC.HOSPP ---
- Subjective Subjective: Mr. Topete was seen today at approximately 12:30pm in follow-up of Pneumonia. he is feeling better today. He says his cough has improved. He had much less hemoptysis. - Objective Vital Signs & Weight: Vital Signs (12 hours) Temp Pulse Resp BP BP Pulse Ox 12/14/18 11:31 97.7 F 58 L 18 140/75 95 12/14/18 09:15 68 12/14/18 07:50 96 12/14/18 07:40 97.8 F 89 18 126/58 L 94 L 12/14/18 06:55 68 14 92 L 12/14/18 03:35 98 F 81 20 119/56 L 94 L 12/14/18 02:42 93 L Weight Weight 209 lb Result Diagrams: 12/12/18 05:24 12/12/18 05:24 Additional Labs: Accuchecks 12/13/18 12/13/18 20:23 16:36 POC Glucose 217 H 198 H ROS - Review of Systems All systems: All other ROS were reviewed and found negative. - Medication Medications: Active Medications Generic Name Dose Route Start Last Admin Trade Name Freq PRN Reason Stop Dose Admin Acetaminophen 650 mg 12/11/18 08:19 12/11/18 16:37 Tylenol PO 650 mg Q4H PRN Administration Headache/Fever or Pain Hydrocodone Bitart/Acetaminophen 1 tab 12/11/18 15:11 12/14/18 02:39 [place] 5/325 PO 1 tab Q4H PRN Administration Moderate Pain (4-6) Albuterol/Ipratropium 3 ml 12/11/18 13:00 12/14/18 06:55 Duoneb NEB 3 ml [id number] JOHNNY Administration Allopurinol 100 mg 12/11/18 09:00 12/14/18 09:14 Zyloprim PO 100 mg DAILY JOHNNY Administration Coenzyme Q10 100 mg 12/11/18 21:00 12/13/18 20:35 Coenzyme Q10 PO 100 mg QPM JOHNNY Administration Digoxin 0.125 mg 12/11/18 09:00 12/14/18 09:15 Lanoxin PO 0.125 mg DAILY JOHNNY Administration Doxycycline Hyclate 100 mg 12/11/18 09:00 12/14/18 09:14 Vibramycin PO 100 mg BID JOHNNY Administration Finasteride 5 mg 12/11/18 09:00 12/14/18 09:15 Proscar PO 5 mg DAILY JOHNNY Administration Gabapentin 600 mg 12/11/18 09:00 12/14/18 09:15 Neurontin PO 600 mg TID JOHNNY Administration Glipizide 5 mg 12/11/18 07:30 12/14/18 09:14 Glucotrol PO 5 mg DAILY-AC JOHNNY Administration Guaifenesin 600 mg 12/11/18 09:00 12/14/18 09:15 Mucinex PO 600 mg Q12HR JOHNNY Administration Cefepime HCl 1 gm/ Sodium 100 mls @ 200 mls/hr 12/11/18 08:00 12/14/18 09:32 Chloride IVPB 100 mls 0800,1999 JOHNNY Administration Insulin Human Regular 0 units 12/11/18 02:25 12/13/18 17:40 Humulin R SC 2 unit .MILD SLIDING SCALE PRN Administration Mild Correctional Scale Insulin Human Regular 0 units 12/11/18 02:25 12/13/18 20:36 Humulin R SC 2 unit .BEDTIME SLIDING SC PRN Administration Bedtime Correctional Scale Pantoprazole Sodium 40 mg 12/11/18 09:00 12/14/18 09:15 Protonix PO 40 mg BID JOHNNY Administration Prednisone 20 mg 12/12/18 08:00 12/14/18 09:14 Prednisone PO 12/17/18 08:01 20 mg QAM-WM JOHNNY Administration Rosuvastatin Calcium 20 mg 12/11/18 21:00 12/13/18 20:35 Crestor PO 20 mg HS [facility] Administration Saccharomyces Boulardii 250 mg 12/11/18 09:00 12/14/18 09:15 Florastor PO 250 mg DAILY JOHNNY Administration Senna/Docusate Sodium 1 tab 12/11/18 09:00 12/14/18 09:16 Senokot S PO 1 tab BID JOHNNY Administration Trazodone HCl 50 mg 12/11/18 02:25 12/13/18 20:36 Desyrel PO 50 mg HS PRN Administration Anxiety - Exam Eye: PERRL, anicteric sclera Heart: RRR, no murmur, no gallops, no rubs, normal peripheral pulses Respiratory: CTAB, no wheezes, no rales, no ronchi, normal chest expansion Gastrointestinal: soft, non-tender, non-distended, normal bowel sounds, no palpable masses, no hepatomegaly Extremities: no edema Hosp A/P (1) Pneumonia, community acquired Code(s): J18.9 - PNEUMONIA, UNSPECIFIED ORGANISM Status: Acute (2) Supratherapeutic INR Code(s): R79.1 - ABNORMAL COAGULATION PROFILE Status: Acute (3) CKD (chronic kidney disease) stage 3, GFR 30-59 ml/min Code(s): N18.3 - CHRONIC KIDNEY DISEASE, STAGE 3 (MODERATE) Status: Chronic (4) Chronic atrial fibrillation Code(s): I48.2 - CHRONIC ATRIAL FIBRILLATION Status: Chronic (5) Diabetes type 2, controlled Code(s): E11.9 - TYPE 2 DIABETES MELLITUS WITHOUT COMPLICATIONS Status: Chronic (6) Hypertension Code(s): I10 - ESSENTIAL (PRIMARY) HYPERTENSION Status: Chronic - Plan * Pneumonia- community acquired- improved * Can transition to oral antibiotics * He is stable for discharge home
[2018-12-14 14:14] LABS: Hemoglobin 9.7 g/dL (14.0-18.0)
[2018-12-14] MEDS ORDERED: Warfarin Sodium 2.5 MG TAB PO SCH (17:00)
--- NOTE | 2018-12-16 02:00 | PQF ---
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 Clinical indicators are provided on the bottom of this form for your review Please check appropriate box(s) to clarify if the following diagnosis has been ruled in or ruled out: Sepsis [ X ] Ruled in diagnosis [X ] Continue to treat [ ] Resolved [ ] Ruled out diagnosis [ ] Cannot rule out diagnosis [ ] Other diagnosis [ ] Unable to determine For continuity of documentation, please document condition throughout progress notes and discharge summary. Thank You. CLINICAL INDICATORS - SIGNS / SYMPTOMS / LABS -Sepsis, Elevated INR, PNA-ED record, pg4Anthoyn Micheal MD -Temp:10.1F, Tachycardia-ED record, pg4Anthony Micheal MD -WBC:12.6H- Laboratory, 12/11 -RR:33, B/p:150/84, Pusle: 116-H&P, pg1,12/10, Aretha Goodrich MD - Acute hypoxic respiratory failure sec to Pneumonia, suspected pneumococcal-H&P , pg1,12/10, Aretha Goodrich MD RISK FACTORS -Acute hypoxic respiratory failure-H&P, pg3,12/10, Aretha Goodrich MD -Sulfa and levoquin allergy-H&P, pg4,12/10, Aretha Goodrich MD -Pneumonia-Amauri Ray MD, 12/14 TREATMENTS Vancomycin,IV, Cefpime.IV-12/10 (This form is maintained as a part of the permanent medical record) 2014 [employer]. All Rights Reserved Phil Reddy [not provided] [not provided] MTDD
== END 2018-12-14 15:16 | disposition home or self-care (01) | DRG 871 ==
LOC: ERS 19:05 → 2NO 22:26
PROVIDERS: ADMIT Internal Medicine; ATTEND Internal Medicine
DX: A41.9 Sepsis, unspecified organism (principal); J18.9 Pneumonia, unspecified organism; J96.01 Acute respiratory failure with hypoxia; J44.0 Chronic obstructive pulmonary disease with (acute) lower respiratory infection; R04.2 Hemoptysis; G89.29 Other chronic pain; K75.9 Inflammatory liver disease, unspecified; I48.2 Chronic atrial fibrillation; E11.22 Type 2 diabetes mellitus with diabetic chronic kidney disease; K21.9 Gastro-esophageal reflux disease without esophagitis; N18.3 Chronic kidney disease, stage 3 (moderate); D63.1 Anemia in chronic kidney disease; D69.6 Thrombocytopenia, unspecified; E11.40 Type 2 diabetes mellitus with diabetic neuropathy, unspecified; I12.9 Hypertensive chronic kidney disease with stage 1 through stage 4 chronic kidney disease, or unspecified chronic kidney disease; R79.1 Abnormal coagulation profile; E78.5 Hyperlipidemia, unspecified; I25.2 Old myocardial infarction; Z95.1 Presence of aortocoronary bypass graft; Z79.01 Long term (current) use of anticoagulants; Z90.49 Acquired absence of other specified parts of digestive tract; Z86.718 Personal history of other venous thrombosis and embolism; Z87.891 Personal history of nicotine dependence; Z88.1 Allergy status to other antibiotic agents; Z88.2 Allergy status to sulfonamides; Z79.4 Long term (current) use of insulin
CPT/HCPCS: 36415; 36416; 71045; 71046; 71275; 80048; 80053; 80162; 81003; 82550; 82805; 83605; 83690; 83735; 83880; 84484; 85014; 85018; 85025; 85610; 85730; 87040; 87070; 87086; 87149; 87205; 93005; 94640; 96365; 96367; 99211; G0463; J0692; J1815; J3370; J3490; J7512; J7620; Q9966

== ENCOUNTER 2019-04-04 16:27 | Inpatient (IN) | payer MEDICARE ==
--- NOTE | 2019-04-04 16:56 | RAD ---
RADIOGRAPH CHEST 1 VIEW: DATE: 04/04/2019 TIME: 4:28 PM HISTORY: 81-year-old male with pneumonia. Follow-up. COMPARISON: 12/04/2018. FINDINGS: There is a left lower lobe infiltrate that appears similar to that of 4 months ago. This could repres ent a recurrent acute process or chronic process. Acute is favored. Previously there was an infiltrate at the right base with adjacent right pleural effusion. Those are no longer visualized. Signs of previous CABG. No pulmonary edema. No pneumothorax. IMPRESSION: Left lower lobe infiltrate
[2019-04-04] MEDS ORDERED: cefTRIAXone\\ROCEPHIN 2 GM VIAL ONE (17:14)
[2019-04-04] MEDS ORDERED: Sodium Chloride 0.9% 100 ML ONE (17:14)
[2019-04-04 17:24] LABS: #Eosinphils 0.1 thou/uL (0.0-0.7); #Lymphocytes 2.2 thou/uL (1.20-3.40); #Monocytes 0.6 thou/uL (0.11-0.59); #Neutrophils 5.1 thou/uL (1.40-6.50); %Basophils 0.4 % (0.0-1.0); %Eosinophils 0.7 % (0.0-10.0); %Lymphocytes 27.9 % (21.0-51.0); %Monocytes 7.2 % (0.0-10.0); %Neutrophils 63.9 % (42.0-75.0); Hemoglobin 11.1 g/dL (14.0-18.0); Mean Corpuscular HGB CONC 34.7 g/dL (32.0-36.0); Mean Corpuscular Hemoglobin 32.4 pg (27.0-31.0); Mean Corpuscular Volume 93.4 fL (78.0-98.0); Platelet Count 116 thou/uL (130-400); RBC Distribution Width 15.5 % (11.5-14.5); Red Blood Cell (RBC) Count 3.42 mill/uL (4.70-6.10)
[2019-04-04 17:40] LABS: INR-International Normal Ratio 3.7; PTT 44.7 SEC (22.9-36.1); Prothrombin Time 36.6 SEC (12.0-14.7)
[2019-04-04 17:53] LABS: ALT (SGPT) 13 U/L (8-55); AST (SGOT) 18 U/L (5-34); Albumin 4.1 g/dL (3.4-4.8); Alkaline Phosphatase 69 U/L (40-110); Anion Gap 9 mmol/L (10-20); BUN (Urea Nitrogen) 25 mg/dL (8.4-25.7); Bilirubin, Total 0.8 mg/dL (0.2-1.2); Calc. Creatinine Clearance 0 mL/min (70-130); Calcium 9.3 mg/dL (7.8-10.44); Carbon Dioxide 29 mmol/L (23-31); Chloride 107 mmol/L (98-107); Estimated GFR-MDRD 32; Globulin 2.7 g/dL (2.4-3.5); Glucose 90 mg/dL (83-110); Potassium 4.7 mmol/L (3.5-5.1); Protein, Total 6.8 g/dL (5.8-8.1); Sodium 140 mmol/L (136-145)
[2019-04-04] MEDS ORDERED: Acetaminophen 500 MG TAB ONE (17:56)
[2019-04-04 17:57] LABS: Bilirubin Negative (Negative); Blood, Urine Negative (Negative); Clarity Clear (Clear); Glucose, Urine (Dipstick) Normal (Negative); Leukocyte Negative Leu/uL (Negative); Nitrite Negative (Negative); Protein, Urine (Dipstick) Negative (Neg-Trace); Urobilinogen Normal mg/dL (Less than 2)
[2019-04-04] MEDS ORDERED: Azithromycin 500 MG VIAL ONE (18:53)
[2019-04-04 19:33] LABS: Digoxin 1.12 ng/mL (0.8-2.0)
[2019-04-04 20:47] LABS: Troponin I 0.037 ng/mL (< 0.028)
[2019-04-04] MEDS ORDERED: Sodium Chloride 0.9% 1,000 ML IV SCH (23:15)
[2019-04-04] MEDS ORDERED: Dextrose 50% Abboject 50 ML SYRINGE SLOW IVP PRN (23:29)
[2019-04-04] MEDS ORDERED: HumaLOG 300 UNITS/3 ML VIAL SC PRN (23:29)
[2019-04-04] MEDS ORDERED: Dextrose 5% in Water 1,000 ML IV PRN (23:29)
[2019-04-04 23:41] LABS: Troponin I 0.038 ng/mL (< 0.028)
[2019-04-05] MEDS ORDERED: Guaifenesin DM 100-10/5 ML UDCUP PO PRN (01:42)
[2019-04-05] MEDS ORDERED: Ondansetron PF 4 MG/2 ML Vial IVP PRN (01:42)
[2019-04-05] MEDS ORDERED: guaiFENesin ER 600 MG TAB PO SCH (02:00)
[2019-04-05] MEDS: Sodium Chloride 0.9% 1,000 ML IV SCH ×2 (02:18→15:40)
[2019-04-05 03:39] VITALS: BMI 27.7
[2019-04-05] MEDS: Acetaminophen 325 MG TAB PO PRN (04:27)
[2019-04-05 05:19] LABS: #Lymphocytes 3.7 thou/uL (1.20-3.40); #Monocytes 0.9 thou/uL (0.11-0.59); #Neutrophils 5.3 thou/uL (1.40-6.50); %Basophils 0.2 % (0.0-1.0); %Eosinophils 0.3 % (0.0-10.0); %Lymphocytes 37.5 % (21.0-51.0); %Monocytes 8.6 % (0.0-10.0); %Neutrophils 53.3 % (42.0-75.0); INR-International Normal Ratio 3.5; Mean Corpuscular HGB CONC 34.6 g/dL (32.0-36.0); Mean Corpuscular Hemoglobin 32.8 pg (27.0-31.0); Mean Corpuscular Volume 94.7 fL (78.0-98.0); Mean Platelet Volume 8.6 fL (7.4-10.4); Platelet Count 87 thou/uL (130-400); Prothrombin Time 34.8 SEC (12.0-14.7); RBC Distribution Width 15.7 % (11.5-14.5); Red Blood Cell (RBC) Count 2.74 mill/uL (4.70-6.10)
[2019-04-05 05:40] LABS: Anion Gap 9 mmol/L (10-20); BUN (Urea Nitrogen) 27 mg/dL (8.4-25.7); Calc. Creatinine Clearance 35 mL/min (70-130); Carbon Dioxide 26 mmol/L (23-31); Cardiac Risk 3.7 (Less than 4.5); Chloride 109 mmol/L (98-107); Cholesterol 71 mg/dl (< 200 Desired); Estimated GFR-MDRD 35; Glucose 79 mg/dL (83-110); HDL Cholesterol 19 mg/dL (>60 Neg Risk); LDL Cholesterol, Calculated 28 mg/dL; Potassium 4.4 mmol/L (3.5-5.1); Sodium 140 mmol/L (136-145); Triglycerides 121 mg/dL (Less than 150)
--- NOTE | 2019-04-05 07:50 | HP ---
PRESENTING COMPLAINT: Shortness of breath and cough. HISTORY OF PRESENT ILLNESS: Mr. Dustin Topete is an 89-year-old male with past medical history of hypertension, AFib, history of recurrent pneumonia, history of partial prostate resection, coronary artery disease with CABG, admitted today after presenting with shortness of breath and fever since the last 1 week. He admits to cough with more chest congestion symptoms. He denies any nausea or vomiting. He admits to dysuria as well as burning in his mid thigh. He states he has been having worsening dysuria since the last couple of weeks. On presentation in the ED, he was noted to be hypoxic and started on 2 L nasal cannula O2. Chest x-ray shows right lower lobe infiltrate. Initial troponin was negative. PAST MEDICAL HISTORY: Significant for hypertension, hyperlipidemia, coronary artery disease status post CABG in the past, history of recurrent pneumonia last admission for pneumonia worsening 2 months ago, history of colon resection, history of partial prostatic resection, history of bone marrow cancer but currently in remission, history of atrial fibrillation, on chronic anticoagulation with Coumadin, history of diabetes mellitus. HOME MEDICATIONS: Include: 1. Coumadin. 2. MiraLax. 3. Nystatin. 4. Protonix. 5. [place]. 6. Iron. 7. Glipizide. 8. Neurontin. 9. Lasix. 10. Finasteride. 11. Mucinex. 12. Digoxin. 13. Crestor. 14. Trazodone. 15. CoQ10. 16. Aspirin. 17. Allopurinol. 18. Diazepam nightly. ALLERGIES: LEVAQUIN AND SULFA. FAMILY HISTORY: Noncontributory in this 89-year-old male. SOCIAL HISTORY: The patient resides in the community with his spouse. REVIEW OF SYSTEMS: All systems reviewed x14 were negative except as mentioned above. PHYSICAL EXAMINATION: VITAL SIGNS: Initial vitals in the ED, blood pressure of 102/46, pulse of 72, blood pressure 1 hour later dropped to 88/36 with a pulse of 88, respiratory rate of 19, and O2 sat of 98% on 2 L nasal cannula. GENERAL: Elderly male, in mild anxious state, on nasal cannula O2, no notable respiratory distress. HEAD: Atraumatic and normocephalic. Bearded. NECK: No JVD. No carotid bruit. RESPIRATORY: Coarse crepitations over bilateral bases, more prominent over the left base. No rhonchi or wheezing. CARDIOVASCULAR: S1, S2, rate and rhythm regular. Sternotomy scar in situ. ABDOMEN: Full, soft, nontender. Bowel sounds positive. MUSCULOSKELETAL: No pedal edema. No calf tenderness. LABORATORY DATA: WBC 8.0, hemoglobin 11, platelet 116, and neutrophil 63%. INR 3.7, PTT 44, PT 36. Sodium 140, potassium 4.7, BUN 25, creatinine 1.99. BNP 155. Troponin 0.017 with repeat 2 hours later of 0.03. Urinalysis was negative. Influenza swab A and B was negative. Chest x-ray shows left basilar infiltrate. EKG shows normal sinus rhythm and no ST-segment changes. Digoxin 1.12. IMPRESSION: 1. Left basilar pneumonia. 2. Hypotension, rule out septic shock. 3. Atrial fibrillation with supratherapeutic INR. 4. Diabetes mellitus. 5. History of hypertension. 6. Coronary artery disease with mild ischemia. 7. 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 PLAN: We will admit the patient to the intermediate care unit and manage the patient for the followin. Left basilar pneumonia. We will obtain sputum culture and sensitivity. We will start empiric antibiotics with Rocephin and Zithromax. We will obtain respiratory panel for possible viral association. We will wean O2 as tolerated. If persistent hypoxia, we will consult Pulmonary. 2. Hypotension. We will bolus IV fluid, normal saline 1 L bolus now. If worsening shortness of breath, might need to hold IV fluid and start pressors. Continue gentle IV fluid with NS at 75 mL/hr. We will hold blood pressure medications for now. 3. History of coronary artery disease, mild troponin elevation borderline. Continue to monitor trend. 4. History of diabetes. We will do insulin sliding scale. 5. Atrial fibrillation-on Coumadin and digoxin. Digoxin level at target. Elevated INR, expected to worsen with antibiotic use. We will do dosing of Coumadin per Pharmacy for now. 6. Deep vein thrombosis prophylaxis. INR was supratherapeutic. 7. Advance directive, discussed with the patient and . They do not want any resuscitation. Total time spent on review of record, discussion with the patient and evaluation is greater than 60 minutes. ADDENDUM: The patient initially admitted to floor and later, transferred to the intermediate care unit. We will continue to monitor overnight. Job ID: [id number]
[2019-04-05] MEDS ORDERED: Miconazole 2% Cream 30 GM TUBE TOP SCH (09:00)
[2019-04-05] MEDS ORDERED: Warfarin Sodium 5 MG TAB PO SCH (09:00)
[2019-04-05] MEDS ORDERED: Digoxin 0.125 MG TAB PO SCH (09:00)
[2019-04-05] MEDS ORDERED: Heparin 5,000 UNITS/ML VIAL SC SCH (09:00)
[2019-04-05] MEDS: Aspirin 325 mg Enteric Coated Tablet PO SCH (09:28)
[2019-04-05] MEDS: glipiZIDE 5 MG TAB PO SCH ×2 (09:28→17:46)
[2019-04-05] MEDS: Allopurinol 100 MG TAB PO SCH (09:29)
[2019-04-05] MEDS: Ferrous Sulfate 325 MG TAB PO SCH (09:29)
[2019-04-05] MEDS: Gabapentin 300 MG CAP PO SCH ×3 (09:29→21:29)
[2019-04-05] MEDS: Famotidine 20 MG TAB PO SCH (09:29)
[2019-04-05] MEDS: Finasteride 5 MG TAB PO SCH (09:29)
[2019-04-05] MEDS ORDERED: Loratadine 10 MG TAB PO PRN (10:05)
--- NOTE | 2019-04-05 13:03 | PDOC.HOSPP ---
- Subjective Encounter Date: 04/05/19 Encounter Time: 07:00 Subjective: Pt seen for followup re: pneumonia. States he feels better. - Objective Vital Signs & Weight: Vital Signs (12 hours) Temp Pulse Resp BP Pulse Ox 04/05/19 11:21 97.9 F 59 L 16 99/48 L 98 04/05/19 10:25 48 L 04/05/19 08:00 97 04/05/19 07:23 98.4 F 56 L 19 117/43 L 97 04/05/19 07:12 97 04/05/19 04:00 98.7 F 61 20 97/44 L 97 Weight Admit Weight 196 lb 4.8 oz Weight 196 lb 4.8 oz I&O: 04/04/19 04/05/19 04/06/19 06:59 06:59 06:59 Intake Total 240 Balance 240 Result Diagrams: 04/05/19 04:41 04/05/19 04:41 Additional Labs: Accuchecks 04/05/19 09:14 POC Glucose 121 H Labs and MARs reviewed by me EKG Reviewed by me: Yes (Tele: ken ware) Hospitalist ROS - Review of Systems Cardiovascular: denies: chest pain, palpitations, orthopnea, paroxysmal noc. dyspnea, edema, light headedness Gastrointestinal: denies: nausea, vomiting, abdominal pain, diarrhea, constipation, melena, hematochezia - Medication Medications: Active Medications Generic Name Dose Route Start Last Admin Trade Name Freq PRN Reason Stop Dose Admin Acetaminophen 650 mg 04/05/19 01:42 04/05/19 04:27 Tylenol PO 650 mg Q4H PRN Administration Headache/Fever/Mild Pain (1-3) Allopurinol 100 mg 04/05/19 09:00 04/05/19 09:29 Zyloprim PO 100 mg DAILY JOHNNY Administration Aspirin 325 mg 04/05/19 09:00 04/05/19 09:28 Ecotrin PO 325 mg DAILY JOHNNY Administration Digoxin 0.125 mg 04/05/19 09:00 04/05/19 10:25 Lanoxin PO Not Given DAILY JOHNNY Famotidine 20 mg 04/05/19 09:00 04/05/19 09:29 Pepcid PO 20 mg DAILY JOHNNY Administration Ferrous Sulfate 325 mg 04/05/19 09:00 04/05/19 09:29 Feosol PO 325 mg DAILY JOHNNY Administration Finasteride 5 mg 04/05/19 09:00 04/05/19 09:29 Proscar PO 5 mg DAILY JOHNNY Administration Gabapentin 600 mg 04/05/19 09:00 04/05/19 09:29 Neurontin PO 600 mg TID JOHNNY Administration Glipizide 5 mg 04/05/19 07:30 04/05/19 09:28 Glucotrol PO 5 mg BID-AC JOHNNY Administration Sodium Chloride 1,000 mls @ 75 mls/hr 04/05/19 01:42 04/05/19 02:18 Normal Saline 0.9% IV 1,000 mls .[id number] JOHNNY Administration Loratadine 10 mg 04/05/19 10:05 04/05/19 11:15 Claritin PO 10 mg DAILYPRN PRN Administration Allergies - Exam General Appearance: NAD Eye: anicteric sclera ENT: moist mucosa Neck: supple Heart: irregular Respiratory: CTAB Gastrointestinal: soft, non-tender Musculoskeletal: normal tone Psychiatric: normal affect, normal behavior Hosp A/P (1) Pneumonia Code(s): J18.9 - PNEUMONIA, UNSPECIFIED ORGANISM Status: Acute (2) Supratherapeutic INR Code(s): R79.1 - ABNORMAL COAGULATION PROFILE Status: Acute (3) Atrial fibrillation Code(s): I48.91 - UNSPECIFIED ATRIAL FIBRILLATION Status: Chronic (4) CAD (coronary artery disease) Code(s): I25.10 - ATHSCL HEART DISEASE OF [place] CORONARY ARTERY W/O ANG PCTRS Status: Chronic (5) CKD (chronic kidney disease) stage 3, GFR 30-59 ml/min Code(s): N18.3 - CHRONIC KIDNEY DISEASE, STAGE 3 (MODERATE) Status: Chronic - Plan continue antibiotics, out of bed/ambulate continue IV ceftriaxone and azithromycin. hold digoxin for bradycardia. pharmacy to manage warfarin CAD stable CKD stable
[2019-04-05] MEDS: cefTRIAXone\\ROCEPHIN 1 GM in Sodium Chloride 0.9% 100 ML IVPB SCH (17:35)
[2019-04-05] MEDS: Azithromycin 500 MG in Sodium Chloride 0.9% 250 ML 250 ML IVPB SCH (18:44)
[2019-04-05] MEDS: Rosuvastatin 20 MG TAB PO SCH (21:29)
[2019-04-05] MEDS: guaiFENesin ER 600 MG TAB PO SCH (21:29)
[2019-04-05] MEDS: Clotrimazole 1 % Cream 30 GM TUBE TOP SCH (21:30)
--- NOTE | 2019-04-05 22:42 | CON ---
DATE OF CONSULTATION: HISTORY OF PRESENT ILLNESS: The patient is an 89-year-old gentleman, who presents for evaluation of dyspnea and fever. The patient has a long history of coronary artery disease. In 1994, he underwent coronary artery bypass graft surgery x3. The patient has subsequently done very well. He does have chronic permanent atrial fibrillation and is on anticoagulation therapy. The patient also has a history of bradycardia. The patient was in his usual state of health when he developed acute onset of fevers and chills. The patient presented into the emergency room with productive sputum. The patient denies having any chest discomfort. PAST MEDICAL HISTORY: 1. Coronary artery disease. 2. Hypertension. 3. Dyslipidemia. 4. Diabetes mellitus. 5. Chronic atrial fibrillation. 6. Lymphoma. 7. History of hepatitis. 8. History of encephalitis. 9. History of DVT. PAST SURGICAL HISTORY: Colon resection, laminectomy, lipoma surgery, and right shoulder surgery. FAMILY HISTORY: Positive family history of heart disease. SOCIAL HISTORY: Former smoker. ALLERGIES: LEVAQUIN, SULFA DRUGS, LIPITOR, PRAVASTATIN, AND SIMVASTATIN. REVIEW OF SYSTEMS: Ten-point system otherwise unremarkable. PHYSICAL EXAMINATION: GENERAL: Well-developed gentleman, in no acute distress. VITAL SIGNS: Blood pressure 114/48. NECK: No jugular distention. LUNGS: Crackles, predominantly in the left lower lung field. HEART: Irregular rate and rhythm. Normal S1, S2. No murmurs. ABDOMEN: Nondistended. EXTREMITIES: Show no edema. VASCULAR: Radial pulses 2+. LABORATORY RESULTS: His sodium is 140, potassium 4.4, chloride 99, bicarbonate 26, BUN 27, creatinine 1.8. His white blood cell count is 10.0, hemoglobin 9.0, hematocrit 26.0 and his platelets were 87. His INR was 3.5. His EKG revealed atrial fibrillation with slow ventricular response, low voltage QRS. Chest x- ray revealed left lower lobe infiltrate. IMPRESSION: 1. Pneumonia. 2. Atrial fibrillation with slow ventricular response. 3. History of coronary artery bypass surgery. 4. Diabetes mellitus. 5. Dyslipidemia. 6. Renal insufficiency. This gentleman presents with pneumonia. The patient's heart rate is slow. I would recommend discontinuing his digoxin. The patient will continue on Coumadin and aspirin. We will follow this patient with you through his hospitalization. Job ID: [id number] [facility]
[2019-04-06 05:27] LABS: Troponin I Less than 0.010 ng/mL (< 0.028)
[2019-04-06] MEDS: Acetaminophen 325 MG TAB PO PRN (06:17)
[2019-04-06 07:11] LABS: INR-International Normal Ratio 2.2
[2019-04-06] MEDS: Sodium Chloride 0.9% 1,000 ML IV SCH (09:23)
[2019-04-06] MEDS: Allopurinol 100 MG TAB PO SCH (09:24)
[2019-04-06] MEDS: guaiFENesin ER 600 MG TAB PO SCH ×2 (09:24→21:41)
[2019-04-06] MEDS: Ferrous Sulfate 325 MG TAB PO SCH (09:24)
[2019-04-06] MEDS: Aspirin 325 mg Enteric Coated Tablet PO SCH (09:25)
[2019-04-06] MEDS: glipiZIDE 5 MG TAB PO SCH (09:25)
[2019-04-06] MEDS: Famotidine 20 MG TAB PO SCH (09:25)
[2019-04-06] MEDS: HYDROcodone/Acetaminophen 10/325 mg Tablet PO PRN ×2 (09:25→21:39)
[2019-04-06] MEDS: Gabapentin 300 MG CAP PO SCH ×3 (09:25→21:41)
[2019-04-06] MEDS: Finasteride 5 MG TAB PO SCH (09:25)
[2019-04-06] MEDS: Clotrimazole 1 % Cream 30 GM TUBE TOP SCH ×2 (09:56→21:49)
--- NOTE | 2019-04-06 14:20 | PQF ---
DATE: 04-06-19 ATTN: DR. DIANN ROCHE Please exercise your independent, professional judgment in responding to the clarification form. Clinical indicators are provided on the bottom of this form for your review Please check appropriate box(s): [ ] Acute Renal Failure (ARF) / Acute Kidney Injury (TC) [ ] Acute on Chronic Renal Failure please specify Stage of CKD (see below) [ ] CKD without ARF/TC please specify Stage of CKD [ ] Other diagnosis [ ] Unable to determine In addition, please specify: Present on Admission (POA): [ ] Yes [ ] No [ ] Unable to determine National Kidney Foundation Guidelines for CKD Staging Stage I Kidney damage with normal or increased GFR GFR > 90 Stage II Kidney damage with mildly decreased GFR GFR 60-89 Stage III Kidney damage with moderately decreased GFR GFR 30 -59 Stage IV Kidney damage with severely decreased GFR GFR 16 -29 Stage V Kidney failure GFR<15 ESRD End Stage Renal Disease On dialysis Acute Renal Failure/Acute Kidney Failure defined as: Increases in SCr by (>) 0.3 mg/dl within 48 hours OR- Increases in SCr by (>) 1.5 times baseline, known or presumed to have occurred within the prior 7 days OR- Urine volume < 0.5 ml/kg/hour for 6 hours (KDIGO supplement 2012 for RIFLE/ALICIA criteria) For continuity of documentation, please document condition throughout progress notes and discharge summary. Thank You. CLINICAL INDICATORS - SIGNS / SYMPTOMS / LABS / RESULTS AND LOCATION IN MR: H&P 04-04-19: CHRONIC KIDNEY DISEASE STAGE 4 WITH CREATININE AT BASELINE. PN DR. ROCHE 04-05-19: CKD STAGE [address] WILCOX 04-05-19: RENAL INSUFFICIENCY GFR: 04-04-19: 32 04-05-19: 35 CREATININE: 04-04-19: 1.99 04-05-19: 1.85 BUN: 04-04-19: 25 04-05-19: 27 RISK FACTORS / RESULTS AND LOCATION IN MR: H&P 04-04-19: CHRONIC KIDNEY DISEASE STAGE 4 WITH CREATININE AT BASELINE. HYPOTENSION, RULE OUT SEPTIC SHOCK H&P 04-04-19: HOME MEDS: NORCO, ASA, LASIX TREATMENTS / RESULTS AND LOCATION IN MR: ER NOTES 04-04-19: IVF NS (This form is maintained as a part of the permanent medical record) 2014 [employer]. All Rights Reserved [email or web address] [email or web address] Office: [phone] [facility]ITAL[facility]
--- NOTE | 2019-04-06 15:10 | PDOC.HOSPP ---
- Subjective Encounter Date: 04/06/19 Encounter Time: 15:07 Subjective: Pt seen for followup re: pneumonia. c/o hemoptysis. No chest pain. - Objective Vital Signs & Weight: Vital Signs (12 hours) Temp Pulse Resp BP Pulse Ox 04/06/19 11:42 97.9 F 65 18 132/62 95 04/06/19 08:00 100 04/06/19 07:45 98.1 F 66 14 132/55 L 100 04/06/19 06:27 98 04/06/19 03:59 98.5 F 76 20 140/70 98 Weight Admit Weight 196 lb 4.8 oz Weight 196 lb 4.8 oz I&O: 04/05/19 04/06/19 04/07/19 06:59 06:59 06:59 Intake Total 240 Balance 240 Result Diagrams: 04/05/19 04:41 04/05/19 04:41 Additional Labs: Accuchecks 04/06/19 04/06/19 04/05/19 10:44 06:26 20:08 POC Glucose 128 H 91 142 H 04/05/19 04/05/19 17:37 16:54 POC Glucose 80 62 L Labs and MARs reviewed by me EKG Reviewed by me: Yes (Tele: a. fib) Hospitalist ROS - Review of Systems Respiratory: reports: cough, hemoptysis, sputum. denies: dry, shortness of breath, SOB with excertion, pleuritic pain, wheezing Cardiovascular: denies: chest pain, palpitations, orthopnea, paroxysmal noc. dyspnea, edema, light headedness - Medication Medications: Active Medications Generic Name Dose Route Start Last Admin Trade Name Freq PRN Reason Stop Dose Admin Acetaminophen 650 mg 04/05/19 01:42 04/06/19 06:17 Tylenol PO 650 mg Q4H PRN Administration Headache/Fever/Mild Pain (1-3) Hydrocodone Bitart/Acetaminophen 1 tab 04/06/19 08:29 04/06/19 09:25 [place] 10/325 PO 1 tab Q8H PRN Administration Pain Allopurinol 100 mg 04/05/19 09:00 04/06/19 09:24 Zyloprim PO 100 mg DAILY JOHNNY Administration Aspirin 325 mg 04/05/19 09:00 04/06/19 09:25 Ecotrin PO 325 mg DAILY JOHNNY Administration Clotrimazole 0 gm 04/05/19 21:00 04/06/19 09:56 Lotrimin 1% Cream TOP 1 applic BID JOHNNY Administration Famotidine 20 mg 04/05/19 09:00 04/06/19 09:25 Pepcid PO 20 mg DAILY JOHNNY Administration Ferrous Sulfate 325 mg 04/05/19 09:00 04/06/19 09:24 Feosol PO 325 mg DAILY JOHNNY Administration Finasteride 5 mg 04/05/19 09:00 04/06/19 09:25 Proscar PO 5 mg DAILY JOHNNY Administration Gabapentin 600 mg 04/05/19 09:00 04/06/19 09:25 Neurontin PO 600 mg TID JOHNNY Administration Glipizide 5 mg 04/06/19 07:30 04/06/19 09:25 Glucotrol PO 5 mg DAILY-AC JOHNNY Administration Guaifenesin 1,200 mg 04/05/19 21:00 04/06/19 09:24 Mucinex PO 1,200 mg Q12HR JOHNNY Administration Azithromycin 500 mg/ Sodium 250 mls @ 250 mls/hr 04/05/19 18:00 04/05/19 18: 44 Chloride IVPB 250 mls Q24HR JOHNNY Administration Ceftriaxone Sodium 1 gm/ 100 mls @ 200 mls/hr 04/05/19 17:00 04/05/19 17:35 Sodium Chloride IVPB 100 mls Q24HR JOHNNY Administration Sodium Chloride 1,000 mls @ 75 mls/hr 04/05/19 01:42 04/06/19 09:23 Normal Saline 0.9% IV 1,000 mls .[id number] JOHNNY Administration Loratadine 10 mg 04/05/19 10:05 04/05/19 11:15 Claritin PO 10 mg DAILYPRN PRN Administration Allergies Rosuvastatin Calcium 40 mg 04/05/19 21:00 04/05/19 21:29 Crestor PO 40 mg HS JOHNNY Administration - Exam General Appearance: NAD Eye: anicteric sclera ENT: moist mucosa Neck: supple Heart: irregular Respiratory: CTAB, no wheezes Gastrointestinal: soft, non-tender Skin: no rashes Psychiatric: normal affect, normal behavior Hosp A/P (1) Pneumonia Code(s): J18.9 - PNEUMONIA, UNSPECIFIED ORGANISM Status: Acute (2) Hemoptysis Code(s): R04.2 - HEMOPTYSIS Status: Acute (3) Supratherapeutic INR Code(s): R79.1 - ABNORMAL COAGULATION PROFILE Status: Acute (4) Atrial fibrillation Code(s): I48.91 - UNSPECIFIED ATRIAL FIBRILLATION Status: Chronic (5) CAD (coronary artery disease) Code(s): I25.10 - ATHSCL HEART DISEASE OF [place] CORONARY ARTERY W/O ANG PCTRS Status: Chronic (6) CKD (chronic kidney disease) stage 3, GFR 30-59 ml/min Code(s): N18.3 - CHRONIC KIDNEY DISEASE, STAGE 3 (MODERATE) Status: Chronic Plan: Present on admission, stable - Plan plan discussed w/ family, PT/OT, out of bed/ambulate continue IV ceftriaxone and azithromycin. Consult PCCM. Digoxin discontinued INR 2.2 today, improved. CAD stable CKD stable
[2019-04-06] MEDS: cefTRIAXone\\ROCEPHIN 1 GM in Sodium Chloride 0.9% 100 ML IVPB SCH (16:43)
[2019-04-06] MEDS ORDERED: Warfarin Sodium 2.5 MG TAB PO SCH (18:15)
[2019-04-06] MEDS: Azithromycin 500 MG in Sodium Chloride 0.9% 250 ML 250 ML IVPB SCH (18:41)
[2019-04-06] MEDS ORDERED: predniSONE 20 MG TAB PO SCH (18:45)
[2019-04-06] MEDS ORDERED: Furosemide 100 MG/10 ML VIAL SLOW IVP SCH (18:45)
--- NOTE | 2019-04-06 19:22 | CON ---
DATE OF CONSULTATION: 04/06/2019 SERVICE: Pulmonary Medicine. REASON FOR CONSULTATION: Hemoptysis. HISTORY OF PRESENT ILLNESS: The patient is an 89-year-old white male with past medical history significant for recurrent pneumonias. Either way, he presented to the emergency department because of increasing shortness of breath, and abrupt onset shaking rigors. In the last couple of times, this happen, he was diagnosed with pneumonia. As such, he decided to present early. He got put on some antibiotics. Really on the hospital stay, he had a low-grade temperature. That being said, this seemed to clear. Over the course of the hospital stay, he was originally not coughing up any blood, but then having significant hemoptysis of bright red blood. Over the last 2 days, this is tapered away and now he is having older looking blood mixed up with significant amounts of purulent sputum. Denies any fevers or chills currently. He is breathing comfortably. He notes increasing lower extremity swelling, orthopnea, and paroxysmal nocturnal dyspnea. Otherwise, he feels like his breathing is basically back to baseline. He is interested in getting out here soon. I reviewed the CT scan from 3 months ago. At that point, no obvious endobronchial disease or mass was present. He had extensive volume overload, and a possible infiltrate in the left lower lobe. PAST MEDICAL HISTORY: 1. Coronary artery disease. 2. Hypertension. 3. Dyslipidemia. 4. Atrial fibrillation. 5. Type 2 diabetes mellitus. 6. Obstructive sleep apnea, not currently on therapy. 7. Gastroesophageal reflux disease. 8. Rhinitis. PAST SURGICAL HISTORY: 1. Coronary artery bypass graft. 2. Bone marrow biopsy. 3. Partial prostate resection. FAMILY HISTORY: Noncontributory. SOCIAL HISTORY: Negative for alcohol, tobacco, or illicit drug use currently. He has a remote history of alcohol abuse, but this was stopped over 17 years ago. He has no exposure to chemicals, dust, asbestos, or tuberculosis. ALLERGIES: LEVAQUIN AND SULFA. MEDICATIONS: List of his inpatient medications was reviewed. No specific updates were made at this time. REVIEW OF SYSTEMS: General; head, ears, eyes, nose, throat; cardiovascular; respiratory; GI; ; musculoskeletal; neurologic; and skin are negative except as mentioned in the HPI. PHYSICAL EXAMINATION: VITAL SIGNS: Afebrile, pulse 65, blood pressure 132/57, respirations 14, and saturation 98% on room air. GENERAL: The patient is awake and alert, in no apparent distress. LUNGS: Crackling is present in the bibasilar region. It is a little bit more severe in the left compared to the right. There is decent air entry. No prolonged expiratory phase is appreciated. HEART: Normal rate and regular. ABDOMEN: Soft, nontender, and nondistended. Bowel sounds are positive. MUSCULOSKELETAL: No cyanosis or clubbing. There is bilateral 2+ edema present. Chronic stasis changes are present. NEUROLOGIC: Grossly nonfocal. : No Desir. LABORATORY DATA: WBC 10.0, hemoglobin 9.0, platelets 87,000. On presentation, his differential on his white blood cell count was completely unremarkable. INR 2.2 , which is now trended down into the normal range. Troponin is below assay limit. Glucose is unremarkable. Creatinine is at baseline at 1.85 with a GFR estimated at 35. Basic metabolic profile is otherwise unremarkable. Liver function studies are essentially unremarkable. Lactate is unremarkable. Urinalysis is negative. Toxicology demonstrates a digoxin level is 1.1. Respiratory culture of the sputum is growing normal respiratory shahnaz including moderate gram-positive rods, gram-negative rods, gram-positive cocci in pairs. Influenza A and B are unremarkable. Urine culture and blood cultures x2 are unremarkable. IMAGIN. Chest x-ray demonstrates possible infiltrate in the left base. 2. CT of the chest from November 2018 demonstrates no evidence of endobronchial disease or pulmonary masses. At that time, he is significantly volume overloaded with atelectasis, pleural effusions, ground-glass infiltrates throughout bilateral lung jamil all consistent with volume overload. In addition to this, he had a left lower lobe infiltrate present. ASSESSMENT: 1. Acute hypoxic respiratory failure. 2. Community-acquired pneumonia, possible. 3. Acute bronchitis. 4. Acute on chronic systolic and diastolic heart failure. 5. Atrial fibrillation with a slow ventricular rate. 6. Supratherapeutic INR. 7. Chronic kidney disease, stage 3/4. 8. Gastroesophageal reflux disease. 9. Rhinitis. 10. Obstructive sleep apnea, untreated. DISCUSSION AND PLAN: We talked about the pathophysiology of community-acquired pneumonia. He understands that most of the time, this is secondary to aspiration. I advised the patient to elevate head of bed and avoid p.o. within 2 hours of going to sleep. I have also suggested he needs to talk to his primary care physician about controlling his rhinitis. Lastly, he was diagnosed with horrendous obstructive sleep apnea very long time ago. He never pursued therapy for this. I suggested that he probably needs to be restudied and if still present, he will need to get treated for it. Of note, this was at a time when he was drinking heavily , and was much heavier. His notes that he now no longer snores early in the evening. The hemoptysis seems to be clearing. This is likely a combination of a couple of different things, but based on the CT scan from 4 months ago, I did not see any obvious discrete endobronchial disease or pulmonary masses that would warrant additional investigation. At this point, I will give him a 5 to 7 day course of antibiotics. He will require repeat imaging in 4 to 6 weeks in the outpatient setting. If the infiltrate persists, this may prompt a CT of the chest and possible bronchoscopy at some later time. The hemoptysis was likely a combination of multiple different factors. It is based on his history, it has significantly cleared. As such, I do not see a role for advanced CTs, or bronchoscopies currently. He is profoundly volume up. IV fluids will be completely interrupted and we will start introducing Lasix back into this patient to get his volume down a touch. This will be 60 mg on a daily basis for the time being. Kidney function is essentially at baseline. Pulmonary/Critical Care will follow along, but Dr. Hong has an established relationship with Mr. Topete and will assume coverage tomorrow. 70 minutes have been devoted to this patient in various activities. I personally reviewed all imaging studies and laboratory data noted within this document. For fifty percent of this time, I was interacting with the patient at the bedside or coordinating care with the care team. For the remainder of the time I was immediately available to the patient in the hospital unit. Job ID: [id number] [facility]
[2019-04-06] MEDS: Rosuvastatin 20 MG TAB PO SCH (21:42)
[2019-04-07 05:05] LABS: INR-International Normal Ratio 1.6; Prothrombin Time 19.3 SEC (12.0-14.7)
[2019-04-07 05:12] LABS: Phosphorus 3.9 mg/dL (2.3-4.7)
[2019-04-07] MEDS: Furosemide 100 MG/10 ML VIAL SLOW IVP SCH (05:51)
[2019-04-07] MEDS: HumaLOG 300 UNITS/3 ML VIAL SC PRN ×4 (07:37→20:44)
[2019-04-07] MEDS: predniSONE 20 MG TAB PO SCH (08:31)
[2019-04-07] MEDS: Aspirin 325 mg Enteric Coated Tablet PO SCH (08:32)
[2019-04-07] MEDS: Allopurinol 100 MG TAB PO SCH (08:32)
[2019-04-07] MEDS: Gabapentin 300 MG CAP PO SCH ×3 (08:32→20:43)
[2019-04-07] MEDS: guaiFENesin ER 600 MG TAB PO SCH ×2 (08:32→20:43)
[2019-04-07] MEDS: Finasteride 5 MG TAB PO SCH (08:32)
[2019-04-07] MEDS: Ferrous Sulfate 325 MG TAB PO SCH (08:32)
[2019-04-07] MEDS: glipiZIDE 5 MG TAB PO SCH (08:32)
[2019-04-07] MEDS: Famotidine 20 MG TAB PO SCH (08:33)
[2019-04-07] MEDS: Clotrimazole 1 % Cream 30 GM TUBE TOP SCH ×2 (08:35→20:44)
--- NOTE | 2019-04-07 09:04 | PRG ---
DATE OF SERVICE: 04/07/2019 SUBJECTIVE: The patient feels better, but is still having some hemoptysis with dark blood. OBJECTIVE: VITAL SIGNS: Temperature 97.9, pulse 74, respirations 16, O2 saturation 95%, and blood pressure 139/64. HEENT: Unremarkable. NECK: No adenopathy or JVD. LUNGS: He has some faint left upper lobe crackles heard posteriorly. CARDIAC: S1 and S2, regular. ABDOMEN: Soft. EXTREMITIES: No edema. LABORATORY DATA: INR is 1.6. ASSESSMENT: 1. Community-acquired pneumonia. 2. Acute bronchitis. 3. Acute on chronic diastolic and systolic heart failure. 4. Supratherapeutic INR at the time of admission. PLAN: Continue antibiotics. Hopefully, home in a day or two. Job ID: [id number]
--- NOTE | 2019-04-07 10:33 | PDOC.HOSPP ---
- Subjective Encounter Date: 04/07/19 Encounter Time: 07:00 Subjective: Pt seen for followup re: pneumonia. Feels better today. Ambulating. - Objective Vital Signs & Weight: Vital Signs (12 hours) Temp Pulse Resp BP Pulse Ox 04/07/19 03:19 97.9 F 74 16 139/64 95 04/06/19 23:09 97.8 F 60 18 122/60 95 Weight Admit Weight 196 lb 4.8 oz Weight 196 lb 4.8 oz I&O: 04/06/19 04/07/19 04/08/19 06:59 06:59 06:59 Intake Total 240 120 Output Total 3700 Balance 240 -3580 Result Diagrams: 04/05/19 04:41 04/05/19 04:41 Additional Labs: Accuchecks 04/07/19 04/06/19 04/06/19 06:15 19:30 16:46 POC Glucose 208 H 183 H 123 H 04/06/19 10:44 POC Glucose 128 H Labs and MARs reviewed by me EKG Reviewed by me: Yes (Tele: NSR) Hospitalist ROS - Review of Systems Constitutional: denies: fever, chills, sweats, weakness, malaise Respiratory: reports: cough, hemoptysis, sputum. denies: dry, shortness of breath, SOB with excertion, pleuritic pain, wheezing Skin: denies: rash, lesions, ruth, bruising - Medication Medications: Active Medications Generic Name Dose Route Start Last Admin Trade Name Freq PRN Reason Stop Dose Admin Acetaminophen 650 mg 04/05/19 01:42 04/06/19 06:17 Tylenol PO 650 mg Q4H PRN Administration Headache/Fever/Mild Pain (1-3) Hydrocodone Bitart/Acetaminophen 1 tab 04/06/19 08:29 04/06/19 21:39 [place] 10/325 PO 1 tab Q8H PRN Administration Pain Allopurinol 100 mg 04/05/19 09:00 04/07/19 08:32 Zyloprim PO 100 mg DAILY JOHNNY Administration Aspirin 325 mg 04/05/19 09:00 04/07/19 08:32 Ecotrin PO 325 mg DAILY JOHNNY Administration Clotrimazole 0 gm 04/05/19 21:00 04/07/19 08:35 Lotrimin 1% Cream TOP 1 applic BID JOHNNY Administration Famotidine 20 mg 04/05/19 09:00 04/07/19 08:33 Pepcid PO 20 mg DAILY JOHNNY Administration Ferrous Sulfate 325 mg 04/05/19 09:00 04/07/19 08:32 Feosol PO 325 mg DAILY JOHNNY Administration Finasteride 5 mg 04/05/19 09:00 04/07/19 08:32 Proscar PO 5 mg DAILY JOHNNY Administration Furosemide 60 mg 04/07/19 06:00 04/07/19 05:51 Lasix SLOW IVP 60 mg 0600 JOHNNY Administration Gabapentin 600 mg 04/05/19 09:00 04/07/19 08:32 Neurontin PO 600 mg TID JOHNNY Administration Glipizide 5 mg 04/06/19 07:30 04/07/19 08:32 Glucotrol PO 5 mg DAILY-AC JOHNNY Administration Guaifenesin 1,200 mg 04/05/19 21:00 04/07/19 08:32 Mucinex PO 1,200 mg Q12HR JOHNNY Administration Azithromycin 500 mg/ Sodium 250 mls @ 250 mls/hr 04/05/19 18:00 04/06/19 18: 41 Chloride IVPB 250 mls Q24HR JOHNNY Administration Ceftriaxone Sodium 1 gm/ 100 mls @ 200 mls/hr 04/05/19 17:00 04/06/19 16:43 Sodium Chloride IVPB 100 mls Q24HR JOHNNY Administration Insulin Human Lispro 0 units 04/07/19 06:29 04/07/19 07:37 Humalog SC 4 unit .MODERATE SLIDING SC PRN Administration MODERATE SLIDING SCALE Protocol Loratadine 10 mg 04/05/19 10:05 04/05/19 11:15 Claritin PO 10 mg DAILYPRN PRN Administration Allergies Prednisone 40 mg 04/07/19 08:00 04/07/19 08:31 Prednisone PO 04/10/19 08:01 40 mg QAM-WM JOHNNY Administration Rosuvastatin Calcium 40 mg 04/05/19 21:00 04/06/19 21:42 Crestor PO 40 mg HS JOHNNY Administration - Exam General Appearance: NAD Eye: anicteric sclera ENT: moist mucosa Neck: supple Heart: irregular Respiratory: CTAB Gastrointestinal: soft, non-tender Extremities: no clubbing Neurological: no weakness Psychiatric: normal affect, normal behavior Hosp A/P (1) Pneumonia Code(s): J18.9 - PNEUMONIA, UNSPECIFIED ORGANISM Status: Acute (2) Hemoptysis Code(s): R04.2 - HEMOPTYSIS Status: Acute (3) Atrial fibrillation Code(s): I48.91 - UNSPECIFIED ATRIAL FIBRILLATION Status: Chronic (4) CAD (coronary artery disease) Code(s): I25.10 - ATHSCL HEART DISEASE OF [place] CORONARY ARTERY W/O ANG PCTRS Status: Chronic (5) CKD (chronic kidney disease) stage 3, GFR 30-59 ml/min Code(s): N18.3 - CHRONIC KIDNEY DISEASE, STAGE 3 (MODERATE) Status: Chronic (6) Supratherapeutic INR Code(s): R79.1 - ABNORMAL COAGULATION PROFILE Status: Resolved - Plan continue antibiotics, out of bed/ambulate continue IV ceftriaxone and azithromycin. Digoxin discontinued fir bradycardia. INR 1.6 today, pharmacy managing warfarin. CAD and CKD stable
[2019-04-07] MEDS: cefTRIAXone\\ROCEPHIN 1 GM in Sodium Chloride 0.9% 100 ML IVPB SCH (16:35)
[2019-04-07] MEDS: Warfarin Sodium 2.5 MG TAB PO SCH (16:36)
[2019-04-07] MEDS: Azithromycin 500 MG in Sodium Chloride 0.9% 250 ML 250 ML IVPB SCH (19:02)
[2019-04-07] MEDS: Rosuvastatin 20 MG TAB PO SCH (20:43)
[2019-04-08 05:06] LABS: INR-International Normal Ratio 1.8; Prothrombin Time 20.4 SEC (12.0-14.7)
[2019-04-08 05:22] LABS: Phosphorus 4.1 mg/dL (2.3-4.7)
[2019-04-08] MEDS: Furosemide 100 MG/10 ML VIAL SLOW IVP SCH (06:38)
[2019-04-08] MEDS: HumaLOG 300 UNITS/3 ML VIAL SC PRN ×3 (06:43→22:03)
[2019-04-08] MEDS: Finasteride 5 MG TAB PO SCH (08:33)
[2019-04-08] MEDS: predniSONE 20 MG TAB PO SCH (08:33)
[2019-04-08] MEDS: Aspirin 325 mg Enteric Coated Tablet PO SCH (08:33)
[2019-04-08] MEDS: Allopurinol 100 MG TAB PO SCH (08:33)
[2019-04-08] MEDS: Gabapentin 300 MG CAP PO SCH ×3 (08:33→21:52)
[2019-04-08] MEDS: glipiZIDE 5 MG TAB PO SCH (08:33)
[2019-04-08] MEDS: guaiFENesin ER 600 MG TAB PO SCH ×2 (08:33→21:52)
[2019-04-08] MEDS: Ferrous Sulfate 325 MG TAB PO SCH (08:34)
[2019-04-08] MEDS: Famotidine 20 MG TAB PO SCH (08:35)
[2019-04-08] MEDS: Clotrimazole 1 % Cream 30 GM TUBE TOP SCH ×2 (08:39→21:56)
--- NOTE | 2019-04-08 08:59 | PRG ---
DATE OF SERVICE: 04/08/2019 SUBJECTIVE: The patient is feeling better. He still coughing up scant amount of blood. OBJECTIVE: VITAL SIGNS: Temperature 98.2, pulse 66, respirations 17, O2 saturation 97% on room air, and blood pressure 134/61. HEENT: Unremarkable. NECK: No adenopathy or JVD. CHEST: Clear to auscultation. CARDIAC: S1 and S2, regular. ABDOMEN: Soft. EXTREMITIES: No edema. ASSESSMENT: 1. Pneumonia. 2. Bronchitis. 3. Chronically anticoagulated on Coumadin. PLAN: All symptoms seem to be getting better. I would think that he can probably be discharged by tomorrow if he is doing well. He will need to complete 7 days of antibiotics. Job ID: [id number]
--- NOTE | 2019-04-08 15:03 | PDOC.HOSPP ---
- Subjective Encounter Date: 04/08/19 Encounter Time: 07:40 Subjective: Pt seen for followup re: pneumonia. Feels better. - Objective Vital Signs & Weight: Vital Signs (12 hours) Temp Pulse Resp BP Pulse Ox 04/08/19 11:45 97.8 F 74 17 139/51 L 97 04/08/19 08:00 97 04/08/19 07:54 98.2 F 66 17 134/61 97 04/08/19 05:26 94 L 04/08/19 04:00 97.4 F L 52 L 20 118/49 L 94 L Weight Admit Weight 196 lb 4.8 oz Weight 196 lb 4.8 oz I&O: 04/07/19 04/08/19 04/09/19 06:59 06:59 06:59 Intake Total 120 515 Output Total 3700 700 Balance -3580 -185 Result Diagrams: 04/05/19 04:41 04/05/19 04:41 Additional Labs: Accuchecks 04/08/19 04/08/19 04/07/19 10:45 05:46 20:07 POC Glucose 119 H 180 H 347 H 04/07/19 16:45 POC Glucose 228 H Labs and MARs reviewed by me EKG Reviewed by me: Yes (Tele: a. fib) Hospitalist ROS - Review of Systems Respiratory: reports: cough, sputum. denies: dry, shortness of breath, hemoptysis, SOB with excertion, pleuritic pain, wheezing Cardiovascular: denies: chest pain, palpitations, orthopnea, paroxysmal noc. dyspnea, edema, light headedness, other - Medication Medications: Active Medications Generic Name Dose Route Start Last Admin Trade Name Freq PRN Reason Stop Dose Admin Acetaminophen 650 mg 04/05/19 01:42 04/06/19 06:17 Tylenol PO 650 mg Q4H PRN Administration Headache/Fever/Mild Pain (1-3) Hydrocodone Bitart/Acetaminophen 1 tab 04/06/19 08:29 04/06/19 21:39 [place] 10/325 PO 1 tab Q8H PRN Administration Pain Allopurinol 100 mg 04/05/19 09:00 04/08/19 08:33 Zyloprim PO 100 mg DAILY JOHNNY Administration Aspirin 325 mg 04/05/19 09:00 04/08/19 08:33 Ecotrin PO 325 mg DAILY JOHNNY Administration Clotrimazole 0 gm 04/05/19 21:00 04/08/19 08:39 Lotrimin 1% Cream TOP 1 applic BID JOHNNY Administration Famotidine 20 mg 04/05/19 09:00 04/08/19 08:35 Pepcid PO Not Given DAILY [facility] Ferrous Sulfate 325 mg 04/05/19 09:00 04/08/19 08:34 Feosol PO 325 mg DAILY JOHNNY Administration Finasteride 5 mg 04/05/19 09:00 04/08/19 08:33 Proscar PO 5 mg DAILY JOHNNY Administration Furosemide 60 mg 04/07/19 06:00 04/08/19 06:38 Lasix SLOW IVP 60 mg 0600 JOHNNY Administration Gabapentin 600 mg 04/05/19 09:00 04/08/19 08:33 Neurontin PO 600 mg TID JOHNNY Administration Glipizide 5 mg 04/06/19 07:30 04/08/19 08:33 Glucotrol PO 5 mg DAILY-AC JOHNNY Administration Guaifenesin 1,200 mg 04/05/19 21:00 04/08/19 08:33 Mucinex PO 1,200 mg Q12HR JOHNNY Administration Azithromycin 500 mg/ Sodium 250 mls @ 250 mls/hr 04/05/19 18:00 04/07/19 19: 02 Chloride IVPB 250 mls Q24HR JOHNNY Administration Ceftriaxone Sodium 1 gm/ 100 mls @ 200 mls/hr 04/05/19 17:00 04/07/19 16:35 Sodium Chloride IVPB 100 mls Q24HR JOHNNY Administration Insulin Human Lispro 0 units 04/07/19 06:29 04/08/19 06:43 Humalog SC 2 unit .MODERATE SLIDING SC PRN Administration MODERATE SLIDING SCALE Protocol Insulin Human Lispro 0 units 04/07/19 20:24 04/07/19 20:44 Humalog SC 4 unit .BEDTIME SLIDING SC PRN Administration Bedtime Correctional Scale Loratadine 10 mg 04/05/19 10:05 04/05/19 11:15 Claritin PO 10 mg DAILYPRN PRN Administration Allergies Prednisone 40 mg 04/07/19 08:00 04/08/19 08:33 Prednisone PO 04/10/19 08:01 40 mg QAM-WM JOHNNY Administration Rosuvastatin Calcium 40 mg 04/05/19 21:00 04/07/19 20:43 Crestor PO 40 mg HS JOHNNY Administration Warfarin Sodium 2.5 mg 04/07/19 17:00 04/07/19 16:36 Coumadin PO 2.5 mg 1700 JOHNNY Administration - Exam General Appearance: NAD Eye: anicteric sclera ENT: moist mucosa Neck: supple, no JVD Heart: irregular Respiratory: wheezes Gastrointestinal: soft, non-tender Extremities: no cyanosis Skin: no lesions Psychiatric: normal affect Hosp A/P (1) Pneumonia Code(s): J18.9 - PNEUMONIA, UNSPECIFIED ORGANISM Status: Acute (2) Hemoptysis Code(s): R04.2 - HEMOPTYSIS Status: Acute (3) Atrial fibrillation Code(s): I48.91 - UNSPECIFIED ATRIAL FIBRILLATION Status: Chronic (4) CAD (coronary artery disease) Code(s): I25.10 - ATHSCL HEART DISEASE OF [place] CORONARY ARTERY W/O ANG PCTRS Status: Chronic (5) CKD (chronic kidney disease) stage 3, GFR 30-59 ml/min Code(s): N18.3 - CHRONIC KIDNEY DISEASE, STAGE 3 (MODERATE) Status: Chronic (6) Supratherapeutic INR Code(s): R79.1 - ABNORMAL COAGULATION PROFILE Status: Resolved - Plan continue antibiotics, out of bed/ambulate Pt clinically improving. continue IV ceftriaxone and azithromycin. Digoxin discontinued because of bradycardia. Pharmacy managing warfarin. CAD and CKD stable Likely home over the weekend.
[2019-04-08] MEDS: cefTRIAXone\\ROCEPHIN 1 GM in Sodium Chloride 0.9% 100 ML IVPB SCH (16:09)
[2019-04-08] MEDS: Warfarin Sodium 2.5 MG TAB PO SCH (16:10)
[2019-04-08] MEDS: Azithromycin 500 MG in Sodium Chloride 0.9% 250 ML 250 ML IVPB SCH (17:15)
[2019-04-08] MEDS: Rosuvastatin 20 MG TAB PO SCH (21:55)
[2019-04-09] MEDS: HYDROcodone/Acetaminophen 10/325 mg Tablet PO PRN (04:23)
[2019-04-09 04:42] LABS: Phosphorus 4.1 mg/dL (2.3-4.7)
[2019-04-09] MEDS: Furosemide 100 MG/10 ML VIAL SLOW IVP SCH (05:38)
[2019-04-09 08:14] VITALS: BP 136/59; TEMP 97.9
[2019-04-09] MEDS: guaiFENesin ER 600 MG TAB PO SCH (08:28)
[2019-04-09] MEDS: predniSONE 20 MG TAB PO SCH (08:28)
[2019-04-09] MEDS: Finasteride 5 MG TAB PO SCH (08:28)
[2019-04-09] MEDS: Ferrous Sulfate 325 MG TAB PO SCH (08:29)
[2019-04-09] MEDS: glipiZIDE 5 MG TAB PO SCH (08:29)
[2019-04-09] MEDS: Allopurinol 100 MG TAB PO SCH (08:29)
[2019-04-09] MEDS: Gabapentin 300 MG CAP PO SCH (08:29)
[2019-04-09] MEDS: Aspirin 325 mg Enteric Coated Tablet PO SCH (08:29)
[2019-04-09] MEDS: Famotidine 20 MG TAB PO SCH (08:33)
[2019-04-09 09:22] LABS: Anion Gap 17 mmol/L (10-20); BUN (Urea Nitrogen) 49 mg/dL (8.4-25.7); Calc. Creatinine Clearance 31 mL/min (70-130); Calcium 9.3 mg/dL (7.8-10.44); Carbon Dioxide 23 mmol/L (23-31); Chloride 106 mmol/L (98-107); Estimated GFR-MDRD 31; Glucose 139 mg/dL (83-110); Potassium 4.4 mmol/L (3.5-5.1); Sodium 142 mmol/L (136-145)
[2019-04-09 09:25] LABS: INR-International Normal Ratio 1.3; Prothrombin Time 15.7 SEC (12.0-14.7)
[2019-04-09 09:33] LABS: Hemoglobin 10.9 g/dL (14.0-18.0); Mean Corpuscular Hemoglobin 32.1 pg (27.0-31.0); Mean Corpuscular Volume 94.2 fL (78.0-98.0); White Blood Cell (WBC) Count 6.3 thou/uL (4.8-10.8)
[2019-04-09 09:38] LABS: Band 19 % (5-11); Lymphocytes 31 % (21-51); MDiff Complete? YES; Mean Platelet Volume 9.6 fL (7.4-10.4); Metamyelocyte 1 % (0-0); Monocytes 6 % (0-10); Neutrophil 37 % (42-75); Platelet Count 56 thou/uL (130-400); Platelet Morphology Comment Appears Decreased; Reactive Lymphocytes 6 % (0-10)
[2019-04-09] MEDS: Clotrimazole 1 % Cream 30 GM TUBE TOP SCH (11:02)
[2019-04-09] MEDS ORDERED: Warfarin Sodium 3 MG TAB PO SCH (17:00)
--- NOTE | 2019-04-11 20:14 | PQF ---
For post-discharge query, pls forward to discharging physician (Dr. Waldrop for this patient). Thanks! [employer] Cemetery Warden Crystal Reports Winform ViewerFISAINT AGNES MEDICAL CENTER,RAUDEL KNUTSON [id number] [address] [place] [address] [id number] CLINICAL DOCUMENTATION CLARIFICATION FORM: POST DISCHARGE Addendum to original discharge summary date: ____ Late entry note date: __ DATE: 04/11/19 ATTN: Raudel Hughes Please exercise your independent, professional judgment in responding to the clarification form. Clinical indicators are provided on the bottom of this form for your review Can you please further clarify the diagnosis based on the clinical indicators below? Please check appropriate box(es): [ ] Sepsis due to: (Pna, UTI, gangrenous gall bladder, etc.) [ ] Severe sepsis with acute organ dysfunction of: (Examples: respiratory failure, encephalopathy, acute kidney failure, other) [ ] Septic Shock [ ] Localized infection without sepsis [ ] Other diagnosis please specify [ ] Unable to determine In addition, please specify: Present on Admission (POA): [ ] Yes [ ] No [ ] Unable to determine For continuity of documentation, please document condition throughout progress notes and discharge summary. Thank You. CLINICAL INDICATORS - SIGNS / SYMPTOMS / LABS H and P pg.1- Admitted today after presenting with shortness of breath and fever since the last 1 week H and P pg.1- he was noted to have hypoxic and started on 2L nasal cannula O2 H and P pg.2- Hypotension, rule out septic shock PN 04/07 Dr. Hong pg.1- Community acquired pneumonia Vital sign- BP: 98/42mmHG, 112/50mmHg, 97/44mmmHG RISK FACTORS CAD-H and P pg.1 HTN-H and P pg.1 hyperlipidemia-H and P pg.1 recurrent pneumonia-H and P pg.1 acute bronchitis-PN 04/07 Dr. Hong pg.1 Acute on chronic diastolic and systolic heart failure-PN 04/07 Dr. Hong pg.1 TREATMENTS: Chest X ray- 04/04 Pulmonary Consult- Dr. Coates 04/06 IV Antibiotics- JUL 26 IV fluids- JUL 26 Nasal Swab/ sputum culture-Microbiology (This form is maintained as a part of the permanent medical record) 2014 [email or web address], [email or web address]. All Rights Reserved Conner [email or web address] [not provided] MTDD
--- NOTE | 2019-04-18 19:00 | PQF ---
VETO RODRIGUEZ OBI, CHIZOBA C [id number] [facility] [place]-[facility] [id number] CLINICAL DOCUMENTATION CLARIFICATION FORM: POST DISCHARGE Addendum to original discharge summary date: ____ Late entry note date: __ Please direct to physicians that took care of the patient DATE: 04/18/19 ATTN: Cedrick Barboza Obi Please exercise your independent, professional judgment in responding to the clarification form. Clinical indicators are provided on the bottom of this form for your review Can you please further clarify the diagnosis based on the clinical indicators below? Please check appropriate box(es): [ ] Sepsis due to: (Pna, UTI, gangrenous gall bladder, etc.) [ ] SIRS due to non-infectious process (please specify etiology) [ ] with organ dysfunction [ ] without organ dysfunction [ ] Severe sepsis with acute organ dysfunction of: (Examples: respiratory failure, encephalopathy, acute kidney failure, other) [ ] Septic Shock [ ] Localized infection without sepsis [ ] Other diagnosis [ ] Unable to determine In addition, please specify: Present on Admission (POA): [ ] Yes [ ] No [ ] Unable to determine For continuity of documentation, please document condition throughout progress notes and discharge summary. Thank You. CLINICAL INDICATORS - SIGNS / SYMPTOMS / LABS H and P pg.1- Admitted today after presenting with shortness of breath and fever since the last 1 week H and P pg.1- he was noted to e hypoxic ans started on 2L nasal cannula O2 H and P pg.2- Hypotension, rule out septic shock PN 04/07 Dr. Hong pg.1- Community acquired pneumonia Vital sign- BP 98/42mmHG, 112/50mmHg, 97/44mmmHG RISK FACTORS CAD-H and P pg.1 HTN-H and P pg.1 hyperlipidemia-H and P pg.1 recurrent pneumonia-H and P pg.1 acute bronchitis-PN 04/07 Dr. Hong pg.1 Acute on chronic diastolic and systolic heart failure-PN 04/07 Dr. Hong pg.1 TREATMENTS: Chest X ray- 04/04 Pulmonary Consult- Dr. Coates 04/06 IV Antibiotics- JUL 26 IV fluids- JUL 26 Nasal Swab/ sputum culture-Microbiology (This form is maintained as a part of the permanent medical record) 2014 [employer]. All Rights Reserved Conner [email or web address] [not provided] MTDD
== END 2019-04-09 12:00 | disposition home health service (06) | DRG 193 ==
LOC: ERS 16:27 → 2SE 21:44
PROVIDERS: ADMIT Internal Medicine; ATTEND Internal Medicine
DX: J18.9 Pneumonia, unspecified organism (principal); J96.01 Acute respiratory failure with hypoxia; I50.43 Acute on chronic combined systolic (congestive) and diastolic (congestive) heart failure; I21.A1 Myocardial infarction type 2; N18.4 Chronic kidney disease, stage 4 (severe); I13.0 Hypertensive heart and chronic kidney disease with heart failure and stage 1 through stage 4 chronic kidney disease, or unspecified chronic kidney disease; I48.21 Permanent atrial fibrillation; R04.2 Hemoptysis; Z66 Do not resuscitate; I25.10 Atherosclerotic heart disease of native coronary artery without angina pectoris; E11.40 Type 2 diabetes mellitus with diabetic neuropathy, unspecified; K21.9 Gastro-esophageal reflux disease without esophagitis; N40.0 Benign prostatic hyperplasia without lower urinary tract symptoms; M54.9 Dorsalgia, unspecified; E78.5 Hyperlipidemia, unspecified; G47.33 Obstructive sleep apnea (adult) (pediatric); E11.22 Type 2 diabetes mellitus with diabetic chronic kidney disease; I95.9 Hypotension, unspecified; K75.9 Inflammatory liver disease, unspecified; J31.0 Chronic rhinitis; J20.9 Acute bronchitis, unspecified; R79.1 Abnormal coagulation profile; Z86.718 Personal history of other venous thrombosis and embolism; I25.2 Old myocardial infarction; Z95.1 Presence of aortocoronary bypass graft; Z87.891 Personal history of nicotine dependence; Z88.1 Allergy status to other antibiotic agents; Z90.49 Acquired absence of other specified parts of digestive tract; Z88.2 Allergy status to sulfonamides; Z79.82 Long term (current) use of aspirin; Z79.01 Long term (current) use of anticoagulants; Z79.84 Long term (current) use of oral hypoglycemic drugs; Z79.02 Long term (current) use of antithrombotics/antiplatelets; Z79.899 Other long term (current) drug therapy; Z87.01 Personal history of pneumonia (recurrent); Z88.8 Allergy status to other drugs, medicaments and biological substances
CPT/HCPCS: 36415; 36416; 71045; 80048; 80053; 80061; 80162; 81003; 83605; 83735; 83880; 84100; 84484; 85025; 85610; 85730; 87040; 87070; 87086; 87205; 87804; 93005; 94640; 94760; 96361; 96365; 96367; J0456; J0696; J1940; J3490; J7050; J7512; J7620

== ENCOUNTER 2019-04-18 10:55 | Outpatient (CLI) | payer MEDICARE ==
--- NOTE | 2019-04-18 11:26 | RAD ---
XR Chest Pa Lat STANDARD HISTORY: Pneumonia follow-up COMPARISON: 04/04/2019 FINDINGS: The heart size is normal. There are changes of median sternotomy. The aorta is tortuous. Th e lungs are well expanded without focal areas of consolidation, pneumothorax or pleural effusions. IMPRESSION: No radiographic evidence of acute cardiopulmonary process.
== END 2019-04-18 10:56 | disposition home or self-care (01) ==
LOC: SCSRAD 10:55
PROVIDERS: ATTEND Nurse Practitioner Family
DX: Z09 Encounter for follow-up examination after completed treatment for conditions other than malignant neoplasm (principal); J18.9 Pneumonia, unspecified organism
CPT/HCPCS: 71046

== ENCOUNTER 2019-07-22 22:06 | Observation (INO) | payer MEDICARE ==
[2019-07-22 22:34] LABS: #Monocytes 0.4 thou/uL (0.11-0.59); #Neutrophils 2.6 thou/uL (1.40-6.50); %Basophils 0.7 % (0.0-1.0); %Eosinophils 1.2 % (0.0-10.0); %Lymphocytes 25.1 % (21.0-51.0); %Monocytes 8.8 % (0.0-10.0); %Neutrophils 64.2 % (42.0-75.0); Hemoglobin 12.1 g/dL (14.0-18.0); Mean Corpuscular HGB CONC 34.2 g/dL (32.0-36.0); Mean Corpuscular Hemoglobin 32.1 pg (27.0-31.0); Mean Corpuscular Volume 93.8 fL (78.0-98.0); Mean Platelet Volume 7.6 fL (7.4-10.4); Platelet Count 142 thou/uL (130-400); RBC Distribution Width 14.8 % (11.5-14.5); Red Blood Cell (RBC) Count 3.76 mill/uL (4.70-6.10)
--- NOTE | 2019-07-22 22:50 | RAD ---
Chest AP view INDICATION: Cough COMPARISON: Chest 2 views dated April 18, 2019 FINDINGS: Lungs: The lungs are clear Cardiac silhouette: There is stable mild cardiomegaly. Stable post-CABG change. Pulmonary vasculature: Normal Pleural spaces: No pleural effusion or pneumothorax is demonstrated. Upper abdomen: No abnormality seen. Osseous structures: No acute osseous abnormality. Additional findings: None. IMPRESSION: No acute cardiopulmonary abnormality.
[2019-07-22 22:56] LABS: Bilirubin Negative (Negative); Blood, Urine Negative (Negative); Clarity Clear (Clear); Glucose, Urine (Dipstick) Normal (Negative); Leukocyte Negative Leu/uL (Negative); Nitrite Negative (Negative); Protein, Urine (Dipstick) Negative (Neg-Trace); Urobilinogen Normal mg/dL (Less than 2)
[2019-07-22 22:58] LABS: ALT (SGPT) 10 U/L (8-55); AST (SGOT) 17 U/L (5-34); Albumin 4.1 g/dL (3.4-4.8); Alkaline Phosphatase 69 U/L (40-110); Anion Gap 11 mmol/L (10-20); BUN (Urea Nitrogen) 27 mg/dL (8.4-25.7); Bilirubin, Total 0.8 mg/dL (0.2-1.2); Calc. Creatinine Clearance 0 mL/min (70-130); Carbon Dioxide 26 mmol/L (23-31); Chloride 104 mmol/L (98-107); Estimated GFR-MDRD 34; Globulin 2.8 g/dL (2.4-3.5); Glucose 128 mg/dL (83-110); Potassium 4.5 mmol/L (3.5-5.1); Protein, Total 6.9 g/dL (5.8-8.1); Sodium 136 mmol/L (136-145)
[2019-07-22] MEDS ORDERED: Cefepime 2 GM VIAL ONE (23:11)
[2019-07-22] MEDS ORDERED: Vancomycin 1 GM/200 ML BAG ONE (23:31)
[2019-07-23] MEDS ORDERED: Ondansetron PF 4 MG/2 ML Vial IVP PRN (00:06)
[2019-07-23] MEDS ORDERED: Acetaminophen 325 MG TAB PO PRN (00:06)
[2019-07-23] MEDS ORDERED: Sodium Chloride 0.9% 1,000 ML IV SCH (01:08)
[2019-07-23 01:17] VITALS: BMI 28.5
[2019-07-23] MEDS ORDERED: Polyethylene Glycol 3350 17 GM Packet PO PRN (02:22)
[2019-07-23] MEDS ORDERED: Diazepam 5 MG TAB PO PRN (02:22)
[2019-07-23] MEDS ORDERED: traZODone HCl 50 MG TAB PO PRN (02:22)
[2019-07-23] MEDS: HYDROcodone/Acetaminophen 10/325 mg Tablet PO PRN (03:00)
[2019-07-23 05:36] LABS: #Lymphocytes 1.1 thou/uL (1.20-3.40); #Monocytes 0.2 thou/uL (0.11-0.59); #Neutrophils 1.6 thou/uL (1.40-6.50); %Basophils 0.3 % (0.0-1.0); %Lymphocytes 37.1 % (21.0-51.0); %Monocytes 8.4 % (0.0-10.0); %Neutrophils 53.3 % (42.0-75.0); Hemoglobin 10.3 g/dL (14.0-18.0); Mean Corpuscular HGB CONC 34.4 g/dL (32.0-36.0); Mean Corpuscular Hemoglobin 32.7 pg (27.0-31.0); Mean Corpuscular Volume 95.1 fL (78.0-98.0); Mean Platelet Volume 8.4 fL (7.4-10.4); Platelet Count 121 thou/uL (130-400); RBC Distribution Width 14.9 % (11.5-14.5); Red Blood Cell (RBC) Count 3.15 mill/uL (4.70-6.10); White Blood Cell (WBC) Count 2.9 thou/uL (4.8-10.8)
[2019-07-23 05:58] LABS: ALT (SGPT) 9 U/L (8-55); AST (SGOT) 21 U/L (5-34); Albumin 3.2 g/dL (3.4-4.8); Alkaline Phosphatase 61 U/L (40-110); Anion Gap 11 mmol/L (10-20); BUN (Urea Nitrogen) 24 mg/dL (8.4-25.7); Bilirubin, Total 0.6 mg/dL (0.2-1.2); Calc. Creatinine Clearance 39 mL/min (70-130); Calcium 7.8 mg/dL (7.8-10.44); Carbon Dioxide 18 mmol/L (23-31); Chloride 110 mmol/L (98-107); Estimated GFR-MDRD 39; Globulin 2.6 g/dL (2.4-3.5); Glucose 120 mg/dL (83-110); Potassium 4.4 mmol/L (3.5-5.1); Protein, Total 5.8 g/dL (5.8-8.1); Sodium 135 mmol/L (136-145)
[2019-07-23 06:03] LABS: INR-International Normal Ratio 2.9; Prothrombin Time 29.8 SEC (12.0-14.7)
[2019-07-23] MEDS ORDERED: Dextrose 5% in Water 1,000 ML IV PRN (07:34)
[2019-07-23] MEDS ORDERED: Dextrose 50% Abboject 50 ML SYRINGE SLOW IVP PRN (07:34)
[2019-07-23] MEDS ORDERED: HumaLOG 300 UNITS/3 ML VIAL SC PRN (07:34)
--- NOTE | 2019-07-23 08:24 | HP ---
CHIEF COMPLAINT: Fever and chills. HISTORY OF PRESENT ILLNESS: The patient is an 89-year-old male, who started having some fever and chills yesterday morning. He has chronic phlegm, quite significant production. He is always slightly short of breath. At this time, he did not notice any worsening of those two symptoms. He had some runny nose. He had loose bowel movements, but last night he had regular normal BM. He denied any chest pain. He denied any nausea, vomiting, or abdominal pain. PAST MEDICAL HISTORY: Positive for 1. Hypertension. 2. Hyperlipidemia. 3. Coronary artery disease, status post CABG. 4. History of recurrent pneumonia. 5. History of pancytopenia. 6. History of bone marrow cancer. 7. Atrial fibrillation, on chronic anticoagulation with Coumadin. 8. Diabetes mellitus. PAST SURGICAL HISTORY: 1. Laminectomy. 2. Colon resection. 3. Coronary artery bypass graft surgery, three vessels. 4. Left shoulder surgery. SOCIAL HISTORY: He denies any alcohol, cigarette smoking, or illicit drug use. He used to smoke cigarettes, but he quit more than 10 years ago. MEDICATIONS: 1. Gabapentin 300 mg tablets two tablets twice a day. 2. Aspirin 81 mg once a day. 3. Finasteride 5 mg once a day. 4. Stool softener two tablets twice a day. 5. Crestor 20 mg once a day. 6. Furosemide 20 mg once daily. 7. Glipizide 5 mg twice a day. 8. Iron tablets 325 mg once a day. 9. Warfarin 5 mg once a day. 10. Pantoprazole 40 mg once a day. ALLERGIES: LEVOFLOXACIN AND SULFA. FAMILY HISTORY: Mother was 99-1/2 when she passed from age and father was 85. He had dementia. REVIEW OF SYSTEMS: All 14 systems were reviewed and only those which are positive in HPI, significant rest of them are negative. PHYSICAL EXAMINATION: VITAL SIGNS: Blood pressure is 149/69, pulse is 91, temperature is 98.0, respiratory rate is 21, O2 saturation is 98% on room air. HEENT: His head is atraumatic and normocephalic. Eyes are PERRLA. Sclerae are nonicteric. Oral mucosa is moist. NECK: Supple. LUNGS: Left lung base with diminished breath sounds and questionable crackles at this area. HEART: S1, S2. Irregularly irregular. No S3. No S4. ABDOMEN: Soft, nontender, nondistended. EXTREMITIES: No clubbing, cyanosis, or edema. NEUROLOGICAL: He follows my commands. He moves all 4 extremities. There are no any motor or sensory deficits. LABORATORY DATA: Labs showed white count of 4.0, hemoglobin of 12.1, hematocrit 35.3, platelet count is 142,000. Normal electrolytes. BUN of 27, creatinine 1.9, glucose 128. The rest of chemistry is within normal limits. Procalcitonin 0.04. Urinalysis within normal limits. IMAGING STUDIES: Chest x-ray personally reviewed by me, did not show any acute abnormalities. Electrocardiogram personally reviewed by me showed atrial fibrillation with ventricular rate of 95 beats per minute. No ischemic changes. IMPRESSION: 1. Febrile illness with chills, rule out pneumonia. 2. Pancytopenia, chronic. 3. Diabetes mellitus, chronic. 4. Coronary artery disease, status post coronary artery bypass graft, chronic, stable. 5. Atrial fibrillation with ventricular rate controlled, chronic. 6. Hypertension. 7. Chronic kidney disease stage 4 with creatinine at the baseline. 8. History of left basilar pneumonia. PLAN: Admission for observation. Condition is fair. Do not resuscitate status. IV fluids, none. We will Hep-Lock him. Rocephin 1 g q.24 hours for possible pneumonia. Accu-Chek a.c. and at bedtime and mild sliding scale with Humalog. DVT prophylaxis with SCDs. Continue home medications. We will obtain chest x-ray tomorrow morning. Job ID: [id number]
[2019-07-23] MEDS ORDERED: Heparin 5,000 UNITS/ML VIAL SC SCH (09:00)
[2019-07-23] MEDS: glipiZIDE 5 MG TAB PO SCH ×2 (09:05→16:12)
[2019-07-23] MEDS: Gabapentin 300 MG CAP PO SCH ×3 (09:05→19:25)
[2019-07-23] MEDS: Allopurinol 100 MG TAB PO SCH (09:05)
[2019-07-23] MEDS: Ferrous Sulfate 325 MG TAB PO SCH (09:05)
[2019-07-23] MEDS: Aspirin 81 mg Enteric Coated Tablet PO SCH (09:05)
[2019-07-23] MEDS: Docusate 100 MG CAP PO SCH ×2 (09:05→19:25)
[2019-07-23] MEDS: Finasteride 5 MG TAB PO SCH (09:05)
[2019-07-23] MEDS: cefTRIAXone\\ROCEPHIN 1 GM in Sodium Chloride 0.9% 100 ML IVPB SCH (09:06)
[2019-07-23] MEDS: Ubidecarenone 50 MG CAP PO SCH (09:06)
[2019-07-23] MEDS: guaiFENesin ER 600 MG TAB PO SCH ×2 (09:06→19:26)
[2019-07-23 11:49] LABS: Hemoglobin 10.1 g/dL (14.0-18.0); Platelet Count 107 thou/uL (130-400)
[2019-07-23] MEDS ORDERED: Warfarin Sodium 5 MG TAB PO SCH (17:00)
[2019-07-23] MEDS: Rosuvastatin 10 MG TAB PO SCH (19:25)
[2019-07-24 05:11] LABS: #Eosinphils 0.1 thou/uL (0.0-0.7); #Lymphocytes 1.5 thou/uL (1.20-3.40); #Monocytes 0.4 thou/uL (0.11-0.59); #Neutrophils 1.4 thou/uL (1.40-6.50); %Basophils 0.4 % (0.0-1.0); %Lymphocytes 44.6 % (21.0-51.0); %Monocytes 11.4 % (0.0-10.0); %Neutrophils 41.6 % (42.0-75.0); Hemoglobin 9.7 g/dL (14.0-18.0); Mean Corpuscular HGB CONC 35.6 g/dL (32.0-36.0); Mean Corpuscular Hemoglobin 33.4 pg (27.0-31.0); Mean Platelet Volume 7.7 fL (7.4-10.4); Platelet Count 94 thou/uL (130-400); RBC Distribution Width 14.9 % (11.5-14.5); White Blood Cell (WBC) Count 3.4 thou/uL (4.8-10.8)
[2019-07-24 05:17] LABS: INR-International Normal Ratio 3.5; Prothrombin Time 34.7 SEC (12.0-14.7)
[2019-07-24 05:27] LABS: Anion Gap 8 mmol/L (10-20); BUN (Urea Nitrogen) 25 mg/dL (8.4-25.7); Calc. Creatinine Clearance 37 mL/min (70-130); Calcium 8.1 mg/dL (7.8-10.44); Carbon Dioxide 26 mmol/L (23-31); Chloride 109 mmol/L (98-107); Estimated GFR-MDRD 37; Glucose 86 mg/dL (83-110); Potassium 4.4 mmol/L (3.5-5.1); Sodium 139 mmol/L (136-145)
--- NOTE | 2019-07-24 08:02 | RAD ---
RADIOGRAPH CHEST 1 VIEW: DATE: 07/24/2019 HISTORY: 89-year-old male with cough FINDINGS: There is no airspace density, pulmonary edema, or pneumothorax. The lateral costophrenic angles are n ot effaced. Signs of previous CABG. IMPRESSION: No acute pulmonary findings.
[2019-07-24] MEDS: glipiZIDE 5 MG TAB PO SCH ×2 (08:45→17:37)
[2019-07-24] MEDS: Gabapentin 300 MG CAP PO SCH ×3 (08:48→19:32)
[2019-07-24] MEDS: Docusate 100 MG CAP PO SCH ×2 (08:48→19:32)
[2019-07-24] MEDS: Ubidecarenone 50 MG CAP PO SCH (08:48)
[2019-07-24] MEDS: guaiFENesin ER 600 MG TAB PO SCH ×2 (08:48→19:33)
[2019-07-24] MEDS: Ferrous Sulfate 325 MG TAB PO SCH (08:48)
[2019-07-24] MEDS: Aspirin 81 mg Enteric Coated Tablet PO SCH (08:48)
[2019-07-24] MEDS: Finasteride 5 MG TAB PO SCH (08:48)
[2019-07-24] MEDS: Allopurinol 100 MG TAB PO SCH (08:48)
[2019-07-24] MEDS: cefTRIAXone\\ROCEPHIN 1 GM in Sodium Chloride 0.9% 100 ML IVPB SCH (08:48)
--- NOTE | 2019-07-24 11:54 | PRG ---
DATE OF SERVICE: 07/24/2019 SUBJECTIVE: The patient is seen and examined at the bedside. He seems to be doing better. He had some abdominal pain yesterday with a lot of gas and difficulty to defecate, but he had small bowel movement yesterday and he had big one today, and the pain and discomfort in the abdomen resolved. His cough is improved, but still bringing up a lot of yellowish phlegm. OBJECTIVE: VITAL SIGNS: Blood pressure is 137/66, pulse is 82, temperature is 98.3, respiratory rate is 20, and O2 saturation is 95% on room air. HEENT: His head is atraumatic and normocephalic. Eyes are PERRLA. Sclerae are nonicteric. Oral mucosa is moist. NECK: Supple. LUNGS: Left base shows inspiratory crackles. No wheezing. HEART: S1 and S2 normal. No S3. No S4. ABDOMEN: Soft, nontender, and mildly distended. No guarding. No masses. EXTREMITIES: No clubbing, cyanosis or edema. NEUROLOGICAL: He is alert and oriented x4. There is no any motor or sensory deficits. LABORATORY DATA: White count of 3.4, hemoglobin of 9.7, hematocrit of 27.3, and platelet count of 94,000. INR of 3.5 and PT of 34.7. Sodium of 139, potassium of 4.4, chloride of 109, CO2 of 26, BUN of 25, creatinine of 1.76, glucose of 86, glycemia is ranging from 77 to 98, and calcium of 8.1. DIAGNOSTIC DATA: Chest x-ray done this morning showed no acute pulmonary findings. IMPRESSION: 1. Febrile illness with chills, rule out pneumonia. So far, we do not have good evidence that he has one. He had contact with his , who just came back from the hospital where she was diagnosed with pneumonia, but he seems to be doing better. He does not require any oxygen supplementation at this point. 2. Pancytopenia, chronic. I suspect that he has myelodysplastic syndrome. Apparently, he was followed by Dr. Pablo in the past for bone marrow cancer according to him. 3. Diabetes mellitus, type 2, well controlled. 4. Coronary artery disease, status post coronary artery bypass graft, chronic, stable. 5. Atrial fibrillation with ventricular rate, controlled, chronic. 6. Hypertension. 7. Chronic kidney disease stage 4 with creatinine at the baseline. 8. History of left basilar pneumonia. PLAN: The patient is improved. He wants to stay additional day and get IV Rocephin for possible pneumonia, although we do not see any infiltrates on his chest x-ray, but his left lower lobe by auscultation presents with some rales and crackles. This could be the source of his fever. I am going to cut back on his glipizide since his glycemia is ranging from 70 to 80s. He will continue on his DVT prophylaxis and he should be able to go home tomorrow. Job ID: [id number]
[2019-07-24] MEDS: Rosuvastatin 10 MG TAB PO SCH (19:32)
[2019-07-25] MEDS: HYDROcodone/Acetaminophen 10/325 mg Tablet PO PRN (04:44)
[2019-07-25 04:53] LABS: INR-International Normal Ratio 2.8; Prothrombin Time 29.3 SEC (12.0-14.7)
[2019-07-25 05:06] LABS: Anion Gap 9 mmol/L (10-20); BUN (Urea Nitrogen) 30 mg/dL (8.4-25.7); Calc. Creatinine Clearance 33 mL/min (70-130); Calcium 8.5 mg/dL (7.8-10.44); Carbon Dioxide 27 mmol/L (23-31); Chloride 110 mmol/L (98-107); Estimated GFR-MDRD 33; Glucose 91 mg/dL (83-110); Potassium 4.8 mmol/L (3.5-5.1); Sodium 141 mmol/L (136-145)
[2019-07-25 05:16] LABS: Hemoglobin 10.2 g/dL (14.0-18.0); Hypochromia SLIGHT = 6-15 cells (100X) (0-5/hpf); Lymphocytes 51 % (21-51); MDiff Complete? YES; Mean Corpuscular Hemoglobin 32.8 pg (27.0-31.0); Mean Corpuscular Volume 93.7 fL (78.0-98.0); Mean Platelet Volume 7.5 fL (7.4-10.4); Monocytes 8 % (0-10); Neutrophil 41 % (42-75); Platelet Count 102 thou/uL (130-400); Platelet Morphology Comment Appears Decreased; RBC Distribution Width 14.8 % (11.5-14.5); Red Blood Cell (RBC) Count 3.11 mill/uL (4.70-6.10); White Blood Cell (WBC) Count 4.8 thou/uL (4.8-10.8)
[2019-07-25 08:17] VITALS: TEMP 98
[2019-07-25] MEDS: guaiFENesin ER 600 MG TAB PO SCH (08:24)
[2019-07-25] MEDS: Ferrous Sulfate 325 MG TAB PO SCH (08:24)
[2019-07-25] MEDS: Gabapentin 300 MG CAP PO SCH ×2 (08:24→14:46)
[2019-07-25] MEDS: Docusate 100 MG CAP PO SCH (08:24)
[2019-07-25] MEDS: cefTRIAXone\\ROCEPHIN 1 GM in Sodium Chloride 0.9% 100 ML IVPB SCH (08:25)
[2019-07-25] MEDS: glipiZIDE 5 MG TAB PO SCH (08:25)
[2019-07-25] MEDS: Finasteride 5 MG TAB PO SCH (08:25)
[2019-07-25] MEDS: Aspirin 81 mg Enteric Coated Tablet PO SCH (08:25)
[2019-07-25] MEDS: Ubidecarenone 50 MG CAP PO SCH (08:25)
[2019-07-25] MEDS: Allopurinol 100 MG TAB PO SCH (08:25)
[2019-07-25 12:00] VITALS: BP 136/65
--- NOTE | 2019-07-25 14:47 | PDOC.HOSPP ---
- Subjective Encounter Date: 07/25/19 Encounter Time: 14:45 Subjective: Mr. Topete was seen today in follow-up of respiratory infection. He says he feels much better today - Objective Vital Signs & Weight: Vital Signs (12 hours) Temp Pulse Resp BP BP Pulse Ox 07/25/19 11:06 98.0 F 64 16 136/65 97 07/25/19 07:30 98.0 F 54 L 16 110/57 L 98 07/25/19 04:41 98.1 F 75 20 141/68 H 95 Weight Weight 195 lb I&O: 07/24/19 07/25/19 07/26/19 06:59 06:59 06:59 Intake Total 960 Output Total 1050 Balance -90 Result Diagrams: 07/25/19 04:38 07/25/19 04:37 Additional Labs: Accuchecks 07/25/19 07/24/19 07/24/19 11:14 20:47 17:04 POC Glucose 131 H 133 H 98 Hospitalist ROS - Medication Medications: Active Medications Generic Name Dose Route Start Last Admin Trade Name Freq PRN Reason Stop Dose Admin Acetaminophen 650 mg 07/23/19 00:06 07/24/19 08:49 Tylenol PO 650 mg Q4H PRN Administration Headache/Fever/Mild Pain (1-3) Hydrocodone Bitart/Acetaminophen 1 tab 07/23/19 02:22 07/25/19 04:44 [place] 10/325 PO 1 tab Q8HR PRN Administration Moderate Pain (4-6) Allopurinol 100 mg 07/23/19 09:00 07/25/19 08:25 Zyloprim PO 100 mg DAILY JOHNNY Administration Aspirin 81 mg 07/23/19 09:00 07/25/19 08:25 Ecotrin PO 81 mg DAILY JOHNNY Administration Coenzyme Q10 100 mg 07/23/19 09:00 07/25/19 08:25 Coenzyme Q10 PO 100 mg DAILY JOHNNY Administration Docusate Sodium 200 mg 07/23/19 09:00 07/25/19 08:24 Colace PO 200 mg BID JOHNNY Administration Ferrous Sulfate 325 mg 07/23/19 08:00 07/25/19 08:24 Feosol PO 325 mg QAM-WM JOHNNY Administration Finasteride 5 mg 07/23/19 09:00 07/25/19 08:25 Proscar PO 5 mg DAILY JOHNNY Administration Gabapentin 600 mg 07/23/19 09:00 07/25/19 08:24 Neurontin PO 600 mg 0900,1500 JOHNNY Administration Gabapentin 900 mg 07/23/19 21:00 07/24/19 19:32 Neurontin PO 900 mg HS JOHNNY Administration Glipizide 2.5 mg 07/24/19 16:30 07/25/19 08:25 Glucotrol PO 2.5 mg BID-AC JOHNNY Administration Guaifenesin 600 mg 07/23/19 09:00 07/25/19 08:24 Mucinex PO 600 mg BID JOHNNY Administration Ceftriaxone Sodium 1 gm/ 100 mls @ 200 mls/hr 07/23/19 08:00 07/25/19 08:25 Sodium Chloride IVPB 100 mls Q24HR JOHNNY Administration Ondansetron HCl 4 mg 07/23/19 00:06 07/23/19 21:52 Zofran IVP 4 mg Q6H PRN Administration Nausea/Vomiting Pantoprazole Sodium 40 mg 07/23/19 09:00 07/25/19 08:25 Protonix PO 40 mg BID JOHNNY Administration Rosuvastatin Calcium 10 mg 07/23/19 21:00 07/24/19 19:32 Crestor PO 10 mg HS JOHNNY Administration Sodium Chloride 10 ml 07/23/19 09:00 07/25/19 08:26 Flush - Normal Saline IVF 10 ml Q12HR JOHNNY Administration - Exam Eye: PERRL, anicteric sclera Heart: RRR, no murmur, no gallops, no rubs, normal peripheral pulses Respiratory: CTAB, no wheezes, no rales, no ronchi, normal chest expansion, no tachypnea Gastrointestinal: soft, non-tender, non-distended, normal bowel sounds, no palpable masses, no hepatomegaly Extremities: no cyanosis, no edema Hosp A/P (1) Acute bronchitis Code(s): J20.9 - ACUTE BRONCHITIS, UNSPECIFIED Status: Acute Qualifiers: (2) Atrial fibrillation Code(s): I48.91 - UNSPECIFIED ATRIAL FIBRILLATION Status: Chronic (3) CAD (coronary artery disease) Code(s): I25.10 - ATHSCL HEART DISEASE OF [place] CORONARY ARTERY W/O ANG PCTRS Status: Chronic (4) CKD (chronic kidney disease) stage 3, GFR 30-59 ml/min Code(s): N18.3 - CHRONIC KIDNEY DISEASE, STAGE 3 (MODERATE) Status: Chronic - Plan * Acute bronchitis- improving * CAD- stable * Stable for discharge home today
[2019-07-25] MEDS ORDERED: Warfarin Sodium 3 MG TAB PO SCH (17:00)
--- NOTE | 2019-07-26 04:14 | DIS ---
DATE OF ADMISSION: 07/23/2019 DATE OF DISCHARGE: 07/25/2019 PRIMARY CARE PHYSICIAN: Kai Mackey MD DISCHARGE DISPOSITION: Home. PRIMARY DISCHARGE DIAGNOSES: 1. Acute bronchitis. 2. Acute on chronic respiratory failure secondary to acute bronchitis. 3. Hypertension. 4. Hyperlipidemia. 5. Coronary artery disease, status post coronary artery bypass grafting. 6. History of recent pneumonia. 7. History of pancytopenia. 8. Atrial fibrillation, on chronic anticoagulation. 9. Diabetes mellitus, type 2. DISCHARGE MEDICATIONS: Include: 1. Omnicef 300 mg p.o. twice a day for 3 days. 2. Mucinex 600 mg twice daily. 3. Warfarin 5 mg daily. 4. CoQ10 of 100 mg daily. 5. Trazodone 50 mg at bedtime. 6. Crestor 10 mg at bedtime. 7. MiraLAX 17 g daily. 8. Protonix 40 mg twice a day. 9. [place] 10/325 q.8 as needed. 10. Protonix 40 mg twice a day. 11. Glipizide 5 mg p.o. b.i.d. 12. Gabapentin 300 mg three tablets at bedtime and 600 mg twice a day. 13. Lasix 20 mg daily. 14. Proscar 5 mg daily. 15. Iron sulfate 325 mg daily. 16. Docusate sodium 200 mg twice a day. 17. Valium 10 mg at bedtime. 18. Aspirin 81 mg daily. 19. Allopurinol 100 mg daily. CODE STATUS: DNAR. ALLERGIES: TO LEVOFLOXACIN AND SULFA. HOSPITAL COURSE: Mr. Topete is a pleasant 89-year-old gentleman, who presented to the emergency room with cough and fever. He had been exposed to his who had recently been diagnosed with pneumonia and for this reason, he was concerned and came to the ER. Chest x-ray in the ER was negative for any infiltrates. However, there was concern that he could have an early pneumonia. For this reason, he was kept in the hospital and placed on IV antibiotics and a repeat chest x-ray was done the following day. This was also negative for infiltrate. He began to start feeling symptomatically improved and the following day, he was much better. There was no fever. No signs of sepsis. As a result, he was able to be discharged home. We will continue three more days of oral antibiotics to complete the course and he is to follow up with his primary care physician in 1 week. Job ID: [id number]
== END 2019-07-25 15:32 | disposition home or self-care (01) ==
LOC: ERS 22:06 → 2SW 07-23 00:03
PROVIDERS: ADMIT Internal Medicine Sleep Medicine; ATTEND Internal Medicine Sleep Medicine
DX: J20.9 Acute bronchitis, unspecified (principal); J96.20 Acute and chronic respiratory failure, unspecified whether with hypoxia or hypercapnia; E78.5 Hyperlipidemia, unspecified; I25.10 Atherosclerotic heart disease of native coronary artery without angina pectoris; I48.91 Unspecified atrial fibrillation; I12.9 Hypertensive chronic kidney disease with stage 1 through stage 4 chronic kidney disease, or unspecified chronic kidney disease; E11.22 Type 2 diabetes mellitus with diabetic chronic kidney disease; D61.818 Other pancytopenia; N18.4 Chronic kidney disease, stage 4 (severe); Z79.01 Long term (current) use of anticoagulants; Z95.1 Presence of aortocoronary bypass graft; Z87.01 Personal history of pneumonia (recurrent); Z79.899 Other long term (current) drug therapy; Z79.82 Long term (current) use of aspirin; Z88.2 Allergy status to sulfonamides; Z88.1 Allergy status to other antibiotic agents; Z79.84 Long term (current) use of oral hypoglycemic drugs
CPT/HCPCS: 71045 ×2; 80048 ×2; 80053 ×2; 81003; 82962 ×3; 83605; 84145; 85014; 85018; 85025 ×4; 85049; 85610 ×3; 87040; 87633; 87804 ×2; 93005; 94760; 96361; 96365; 96366; 96367 ×2; 96375; 96376; 99285; G0378 ×4; 36415; 36416; J0692; J0696; J2405; J3370; J3490

== ENCOUNTER 2020-08-29 13:10 | Outpatient (CLI) | payer MEDICARE | END 2020-08-29 13:11 | disposition home or self-care (01) | LOC: BICRAD 13:10 | PROVIDERS: ATTEND Internal Medicine Critical Care Medicine | DX: R06.00 Dyspnea, unspecified (principal); R91.8 Other nonspecific abnormal finding of lung field | CPT/HCPCS: 71046 ==

== ENCOUNTER 2020-09-24 03:44 | Inpatient (IN) | payer MEDICARE ==
[2020-09-24] MEDS ORDERED: Acetaminophen 325 MG TAB PO PRN (10:54)
[2020-09-24] MEDS ORDERED: Milk Of Magnesia 30 ML UDCUP PO PRN (10:54)
[2020-09-24] MEDS ORDERED: Nitroglycerin 0.4 MG TAB (25 Tab Bottle) SL PRN (10:54)
[2020-09-24] MEDS ORDERED: Sodium Chloride 0.9% 1,000 ML IV SCH (11:00)
[2020-09-24 11:03] VITALS: BMI 28.8
[2020-09-24 11:16] LABS: #Eosinphils 0.1 thou/uL (0.0-0.7); #Lymphocytes 1.7 thou/uL (1.20-3.40); #Monocytes 0.5 thou/uL (0.11-0.59); #Neutrophils 1.3 thou/uL (1.40-6.50); %Basophils 0.5 % (0.0-1.0); %Eosinophils 2.1 % (0.0-10.0); %Lymphocytes 47.8 % (21.0-51.0); %Monocytes 13.3 % (0.0-10.0); %Neutrophils 36.3 % (42.0-75.0); Hemoglobin 10.2 g/dL (14.0-18.0); Mean Corpuscular Hemoglobin 31.4 pg (27.0-31.0); Mean Corpuscular Volume 92.3 fL (78.0-98.0); Mean Platelet Volume 7.1 fL (7.4-10.4); Platelet Count 134 thou/uL (130-400); RBC Distribution Width 16.2 % (11.5-14.5); Red Blood Cell (RBC) Count 3.24 mill/uL (4.70-6.10); White Blood Cell (WBC) Count 3.5 thou/uL (4.8-10.8)
[2020-09-24 11:40] LABS: INR-International Normal Ratio 1.2
[2020-09-24 11:41] LABS: ALT (SGPT) 11 U/L (8-55); AST (SGOT) 16 U/L (5-34); Albumin 3.5 g/dL (3.4-4.8); Alkaline Phosphatase 65 U/L (40-110); Anion Gap 9 mmol/L (10-20); BUN (Urea Nitrogen) 18 mg/dL (8.4-25.7); Bilirubin, Total 0.9 mg/dL (0.2-1.2); Calc. Creatinine Clearance 37 mL/min (70-130); Calcium 8.9 mg/dL (7.8-10.44); Carbon Dioxide 30 mmol/L (23-31); Chloride 99 mmol/L (98-107); Globulin 2.8 g/dL (2.4-3.5); Glucose 73 mg/dL (83-110); Potassium 4.4 mmol/L (3.5-5.1); Protein, Total 6.3 g/dL (5.8-8.1); Sodium 134 mmol/L (136-145)
[2020-09-24] MEDS ORDERED: Docusate 100 MG CAP PO SCH (21:00)
[2020-09-24] MEDS: Docusate 100 MG CAP PO SCH (21:33)
[2020-09-24] MEDS: Gabapentin 300 MG CAP PO SCH (21:34)
[2020-09-24] MEDS: Rosuvastatin 20 MG TAB PO SCH (21:34)
[2020-09-24] MEDS: traZODone HCl 50 MG TAB PO SCH (21:34)
[2020-09-24 21:36] LABS: SARS-CoV-2 PCR by NAA Not Detected (NotDetected)
[2020-09-24] MEDS ORDERED: Diazepam 5 MG TAB PO PRN (23:50)
[2020-09-24] MEDS: HYDROcodone/Acetaminophen 10/325 mg Tablet PO PRN (23:54)
[2020-09-25 05:47] LABS: INR-International Normal Ratio 1.1; Prothrombin Time 14.6 sec (12.0-14.7)
[2020-09-25 05:56] LABS: Anion Gap 11 mmol/L (10-20); BUN (Urea Nitrogen) 18 mg/dL (8.4-25.7); Calc. Creatinine Clearance 39 mL/min (70-130); Calcium 8.4 mg/dL (7.8-10.44); Carbon Dioxide 26 mmol/L (23-31); Chloride 101 mmol/L (98-107); Glucose 95 mg/dL (83-110); Potassium 4.1 mmol/L (3.5-5.1); Sodium 134 mmol/L (136-145)
[2020-09-25] MEDS ORDERED: Sodium Chloride 0.9% 1,000 ML IV SCH ×2 (06:00→08:00)
[2020-09-25] MEDS: Allopurinol 100 MG TAB PO SCH (06:16)
[2020-09-25] MEDS: Aspirin 81 mg Enteric Coated Tablet PO SCH (06:17)
[2020-09-25] MEDS: Gabapentin 300 MG CAP PO SCH ×3 (06:17→20:23)
[2020-09-25] MEDS: Finasteride 5 MG TAB PO SCH (06:17)
[2020-09-25] MEDS ORDERED: Heparin 10,000 UNITS/ 10 ML VIAL ONE (06:34)
[2020-09-25] MEDS ORDERED: Lidocaine 1% (PF) 30 ML VIAL ONE (06:34)
[2020-09-25] MEDS ORDERED: Midazolam HCl 2 mg/2 ml Vial ONE (07:07)
[2020-09-25] MEDS ORDERED: Fentanyl 100 MCG/2 ML VIAL ONE (07:07)
[2020-09-25] MEDS ORDERED: Protamine Sulfate 50 MG/5 ML VIAL ONE (07:27)
[2020-09-25] MEDS ORDERED: glipiZIDE 5 MG TAB PO SCH (07:30)
[2020-09-25] MEDS ORDERED: Sodium Chloride 0.9% 200 ML IV PRN (07:48)
[2020-09-25] MEDS ORDERED: Acetaminophen/Codeine 30-300mg Tablet PO PRN (07:48)
[2020-09-25] MEDS ORDERED: Nitroglycerin 0.4 MG TAB (25 Tab Bottle) SL PRN (07:48)
[2020-09-25] MEDS ORDERED: Iopamidol 370 76% 100 ML VIAL ONE (08:48)
[2020-09-25] MEDS: Docusate 100 MG CAP PO SCH ×2 (10:07→20:25)
[2020-09-25] MEDS: Furosemide 20 MG TAB PO SCH (10:12)
[2020-09-25] MEDS: HYDROcodone/Acetaminophen 10/325 mg Tablet PO PRN (11:51)
[2020-09-25] MEDS ORDERED: Warfarin Sodium 5 MG TAB PO SCH ×2 (17:00)
[2020-09-25] MEDS: Sodium Chloride 0.9% 1,000 ML IV SCH (17:10)
[2020-09-25] MEDS: Acetaminophen/Codeine 30-300mg Tablet PO PRN (17:16)
[2020-09-25] MEDS: Rosuvastatin 20 MG TAB PO SCH (20:23)
[2020-09-25] MEDS: traZODone HCl 50 MG TAB PO SCH (20:24)
[2020-09-26] MEDS: Acetaminophen/Codeine 30-300mg Tablet PO PRN (04:00)
[2020-09-26 06:03] LABS: Anion Gap 12 mmol/L (10-20); BUN (Urea Nitrogen) 15 mg/dL (8.4-25.7); Calc. Creatinine Clearance 40 mL/min (70-130); Calcium 8.4 mg/dL (7.8-10.44); Carbon Dioxide 26 mmol/L (23-31); Chloride 103 mmol/L (98-107); Glucose 104 mg/dL (83-110); Potassium 4.5 mmol/L (3.5-5.1); Sodium 136 mmol/L (136-145)
[2020-09-26 06:08] LABS: Hemoglobin 10.1 g/dL (14.0-18.0); Platelet Count 117 thou/uL (130-400)
[2020-09-26] MEDS: Sodium Chloride 0.9% 1,000 ML IV SCH (07:04)
[2020-09-26 08:24] VITALS: BP 114/60; TEMP 98.4
[2020-09-26] MEDS: Gabapentin 300 MG CAP PO SCH (08:51)
[2020-09-26] MEDS: Docusate 100 MG CAP PO SCH (08:51)
[2020-09-26] MEDS: Furosemide 20 MG TAB PO SCH (08:51)
[2020-09-26] MEDS: Allopurinol 100 MG TAB PO SCH (08:52)
[2020-09-26] MEDS: Aspirin 81 mg Enteric Coated Tablet PO SCH (08:52)
[2020-09-26] MEDS: Finasteride 5 MG TAB PO SCH (08:52)
[2020-09-26] MEDS ORDERED: Warfarin Sodium 5 MG TAB PO SCH (17:00)
[2020-09-27] MEDS ORDERED: Warfarin Sodium 2.5 MG TAB PO SCH (17:00)
== END 2020-09-26 10:25 | disposition home or self-care (01) | DRG 287 ==
LOC: INTOOBSV 09:20 → 2SW 09:20 → OBSVTOIN 09-25 15:45
PROVIDERS: ADMIT Internal Medicine Cardiovascular Disease; ATTEND Internal Medicine Cardiovascular Disease
PROC: 4A023N7 Measurement of Cardiac Sampling and Pressure, Left Heart, Percutaneous Approach (ICD-10-PCS; principal; 2020-09-25)
PROC: B2111ZZ Fluoroscopy of Multiple Coronary Arteries using Low Osmolar Contrast (ICD-10-PCS; 2020-09-25)
PROC: B2181ZZ Fluoroscopy of Left Internal Mammary Bypass Graft using Low Osmolar Contrast (ICD-10-PCS; 2020-09-25)
DX: I25.718 Atherosclerosis of autologous vein coronary artery bypass graft(s) with other forms of angina pectoris (principal); I48.20 Chronic atrial fibrillation, unspecified; I82.5Y2 Chronic embolism and thrombosis of unspecified deep veins of left proximal lower extremity; Z95.1 Presence of aortocoronary bypass graft; Z79.82 Long term (current) use of aspirin; Z79.84 Long term (current) use of oral hypoglycemic drugs; Z79.01 Long term (current) use of anticoagulants; I48.91 Unspecified atrial fibrillation; Z85.72 Personal history of non-Hodgkin lymphomas; D64.9 Anemia, unspecified; E66.9 Obesity, unspecified; J41.1 Mucopurulent chronic bronchitis; E11.22 Type 2 diabetes mellitus with diabetic chronic kidney disease; N18.30 Chronic kidney disease, stage 3 unspecified; E78.00 Pure hypercholesterolemia, unspecified; I95.9 Hypotension, unspecified; Z87.891 Personal history of nicotine dependence; Z86.711 Personal history of pulmonary embolism; Z68.28 Body mass index [BMI] 28.0-28.9, adult
CPT/HCPCS: 36415; 71045; 80048; 80053; 85014; 85018; 85025; 85049; 85347; 85610; 87635; 93005; 93010; 93455; 94760; 99152; G0378; J1644; J2001; J2250; J2720; J3010; Q9967; U0003; U0005

== ENCOUNTER 2020-12-05 11:50 | Inpatient (IN) | payer MEDICARE ==
[2020-12-05 13:23] LABS: Bacteria/HPF 2+ HPF (None Seen); Bilirubin Negative (Negative); Blood, Urine Negative (Negative); Clarity Turbid (Clear); Glucose, Urine (Dipstick) Normal (Negative); Ketone, Urine Negative (Negative); Leukocyte 500 Leu/uL (Negative); Nitrite Negative (Negative); Protein, Urine (Dipstick) Negative (Neg-Trace); RBC/HPF 0-3 HPF (0-3); Specific Gravity, Urine 1.008 (1.002-1.036); Squamous Epithelial 0-3 HPF (0-3); Urobilinogen Normal mg/dL (Less than 2); WBC/HPF Greater than 50 HPF (0-3); pH, Urine 5.5 (5.0-9.0)
[2020-12-05 13:49] LABS: Hemoglobin 11.3 g/dL (14.0-18.0); Mean Corpuscular HGB CONC 33.6 g/dL (32.0-36.0); Mean Corpuscular Hemoglobin 32.7 pg (27.0-31.0); Mean Corpuscular Volume 97.2 fL (78.0-98.0); RBC Distribution Width 16.5 % (11.5-14.5); Red Blood Cell (RBC) Count 3.46 mill/uL (4.70-6.10); White Blood Cell (WBC) Count 4.6 thou/uL (4.8-10.8)
[2020-12-05 14:03] LABS: ALT (SGPT) 8 U/L (8-55); AST (SGOT) 18 U/L (5-34); Albumin 3.4 g/dL (3.4-4.8); Alkaline Phosphatase 70 U/L (40-110); Anion Gap 10 mmol/L (10-20); BUN (Urea Nitrogen) 15 mg/dL (8.4-25.7); Bilirubin, Total 0.7 mg/dL (0.2-1.2); Calc. Creatinine Clearance 0 mL/min (70-130); Calcium 8.5 mg/dL (7.8-10.44); Carbon Dioxide 30 mmol/L (23-31); Chloride 98 mmol/L (98-107); Globulin 2.7 g/dL (2.4-3.5); Glucose 82 mg/dL (83-110); Potassium 4.3 mmol/L (3.5-5.1); Protein, Total 6.1 g/dL (5.8-8.1); Sodium 134 mmol/L (136-145)
[2020-12-05] MEDS ORDERED: cefTRIAXone\\ROCEPHIN 1 GM VIAL ONE (14:05)
[2020-12-05 14:12] LABS: Anisocytosis SLIGHT = 6-15 cells (100X) (0-5/hpf); Band 12 % (5-11); Eosinophils 2 % (0-10); Lymphocytes 34 % (21-51); MDiff Complete? YES; Mean Platelet Volume 8.2 fL (7.4-10.4); Monocytes 12 % (0-10); Neutrophil 20 % (42-75); Platelet Count 118 thou/uL (130-400); Platelet Morphology Comment Appears Decreased; Reactive Lymphocytes 20 % (0-10)
[2020-12-05 14:26] LABS: Hemoglobin 11.7 g/dL (14.0-18.0); Mean Corpuscular HGB CONC 34.5 g/dL (32.0-36.0); Mean Corpuscular Hemoglobin 33.5 pg (27.0-31.0); Mean Corpuscular Volume 97.1 fL (78.0-98.0); Mean Platelet Volume 7.7 fL (7.4-10.4); Platelet Count 117 thou/uL (130-400); RBC Distribution Width 16.5 % (11.5-14.5); Red Blood Cell (RBC) Count 3.51 mill/uL (4.70-6.10); White Blood Cell (WBC) Count 5.2 thou/uL (4.8-10.8)
[2020-12-05 14:40] LABS: ALT (SGPT) 8 U/L (8-55); AST (SGOT) 17 U/L (5-34); Albumin 3.5 g/dL (3.4-4.8); Alkaline Phosphatase 72 U/L (40-110); Anion Gap 7 mmol/L (10-20); BUN (Urea Nitrogen) 16 mg/dL (8.4-25.7); Bilirubin, Total 0.7 mg/dL (0.2-1.2); Calc. Creatinine Clearance 0 mL/min (70-130); Calcium 8.8 mg/dL (7.8-10.44); Carbon Dioxide 32 mmol/L (23-31); Chloride 98 mmol/L (98-107); Globulin 3.1 g/dL (2.4-3.5); Glucose 72 mg/dL (83-110); Potassium 4.2 mmol/L (3.5-5.1); Protein, Total 6.6 g/dL (5.8-8.1); Sodium 133 mmol/L (136-145)
[2020-12-05 14:50] LABS: Band 12 % (5-11); Eosinophils 1 % (0-10); Lymphocytes 31 % (21-51); MDiff Complete? YES; Monocytes 14 % (0-10); Neutrophil 17 % (42-75); Ovalocytes SLIGHT = 2-5 cells (100X) (0-1/hpf); Platelet Morphology Comment Appears Decreased; Reactive Lymphocytes 25 % (0-10)
[2020-12-05] MEDS ORDERED: Vancomycin 1 GM/200 ML BAG ONE (14:58)
[2020-12-05 16:33] LABS: INR-International Normal Ratio 2.6; PTT 45.6 sec (22.9-36.1); Prothrombin Time 28.1 sec (12.0-14.7)
[2020-12-05 17:20] VITALS: BMI 30.7
[2020-12-05] MEDS ORDERED: Ondansetron ODT 4 MG TAB SL PRN (17:45)
[2020-12-05] MEDS ORDERED: Ondansetron PF 4 MG/2 ML Vial IVP PRN (17:45)
[2020-12-05] MEDS ORDERED: Acetaminophen 325 MG TAB PO PRN (17:45)
[2020-12-05] MEDS ORDERED: Diazepam 5 MG TAB PO PRN (19:16)
[2020-12-05] MEDS ORDERED: Warfarin Sodium 5 MG TAB PO SCH (19:30)
[2020-12-05] MEDS: Gabapentin 300 MG CAP PO SCH (20:42)
[2020-12-05] MEDS: Rosuvastatin 20 MG TAB PO SCH (20:42)
[2020-12-05] MEDS: traZODone HCl 50 MG TAB PO SCH (20:42)
[2020-12-05] MEDS: cefTRIAXone\\ROCEPHIN 1 GM in Sodium Chloride 0.9% 100 ML IVPB SCH (22:08)
[2020-12-05] MEDS: HYDROcodone/Acetaminophen 10/325 mg Tablet PO PRN (22:11)
[2020-12-06 06:50] LABS: INR-International Normal Ratio 2.6
[2020-12-06 07:09] LABS: Cardiac Risk 3.6 (Less than 4.5)
[2020-12-06] MEDS ORDERED: Aspirin 81 mg Enteric Coated Tablet PO SCH (09:00)
[2020-12-06] MEDS ORDERED: Finasteride 5 MG TAB PO SCH (09:00)
[2020-12-06] MEDS ORDERED: Allopurinol 100 MG TAB PO SCH (09:00)
[2020-12-06] MEDS: Gabapentin 300 MG CAP PO SCH ×3 (10:20→20:15)
[2020-12-06] MEDS: Aspirin 81 mg Enteric Coated Tablet PO SCH (10:20)
[2020-12-06] MEDS: Allopurinol 100 MG TAB PO SCH (10:20)
[2020-12-06] MEDS: Ascorbic Acid 500 mg Chewable Tablet PO SCH (10:20)
[2020-12-06] MEDS: Furosemide 20 MG TAB PO SCH (10:20)
[2020-12-06] MEDS: Docusate 100 MG CAP PO SCH ×2 (10:21→20:14)
[2020-12-06] MEDS: Polyethylene Glycol 3350 17 GM Packet PO SCH (10:21)
[2020-12-06] MEDS: Finasteride 5 MG TAB PO SCH (10:23)
[2020-12-06 10:40] LABS: Hemoglobin 10.9 g/dL (14.0-18.0); Platelet Count 112 thou/uL (130-400)
[2020-12-06] MEDS: HYDROcodone/Acetaminophen 10/325 mg Tablet PO PRN ×2 (15:24→20:16)
[2020-12-06] MEDS ORDERED: Warfarin Sodium 5 MG TAB PO SCH (17:00)
[2020-12-06] MEDS: Rosuvastatin 20 MG TAB PO SCH (20:16)
[2020-12-06] MEDS: traZODone HCl 50 MG TAB PO SCH (20:17)
[2020-12-06] MEDS: cefTRIAXone\\ROCEPHIN 1 GM in Sodium Chloride 0.9% 100 ML IVPB SCH (22:03)
[2020-12-06] MEDS: Diazepam 5 MG TAB PO PRN (22:04)
[2020-12-07] MEDS: HYDROcodone/Acetaminophen 10/325 mg Tablet PO PRN ×3 (00:29→20:30)
[2020-12-07 06:35] LABS: INR-International Normal Ratio 2.6; Prothrombin Time 27.7 sec (12.0-14.7)
[2020-12-07] MEDS: Gabapentin 300 MG CAP PO SCH ×3 (08:48→20:28)
[2020-12-07] MEDS: Allopurinol 100 MG TAB PO SCH (08:49)
[2020-12-07] MEDS: Docusate 100 MG CAP PO SCH ×3 (08:50→20:28)
[2020-12-07] MEDS: Polyethylene Glycol 3350 17 GM Packet PO SCH (08:51)
[2020-12-07] MEDS: Acetaminophen 325 MG TAB PO PRN (08:51)
[2020-12-07] MEDS: Finasteride 5 MG TAB PO SCH (08:53)
[2020-12-07] MEDS: Furosemide 20 MG TAB PO SCH (10:06)
[2020-12-07] MEDS: Ascorbic Acid 500 mg Chewable Tablet PO SCH (10:07)
[2020-12-07] MEDS: Aspirin 81 mg Enteric Coated Tablet PO SCH (10:07)
[2020-12-07] MEDS ORDERED: Furosemide 20 MG/2 ML VIAL SLOW IVP SCH (12:00)
[2020-12-07] MEDS ORDERED: Azithromycin 250 MG TAB PO SCH (12:15)
[2020-12-07] MEDS: Rosuvastatin 20 MG TAB PO SCH (20:28)
[2020-12-07] MEDS: traZODone HCl 50 MG TAB PO SCH (20:30)
[2020-12-07] MEDS: Apixaban 2.5 MG TAB PO SCH (20:30)
[2020-12-07] MEDS: cefTRIAXone\\ROCEPHIN 1 GM in Sodium Chloride 0.9% 100 ML IVPB SCH (21:54)
[2020-12-07] MEDS: Diazepam 5 MG TAB PO PRN (21:55)
[2020-12-07] MEDS ORDERED: Cepastat Lozenges 1 LOZ PO PRN (22:12)
[2020-12-08] MEDS: HYDROcodone/Acetaminophen 10/325 mg Tablet PO PRN ×3 (06:03→14:46)
[2020-12-08] MEDS ORDERED: Azithromycin 250 MG TAB PO SCH (09:00)
[2020-12-08] MEDS: Aspirin 81 mg Enteric Coated Tablet PO SCH (09:18)
[2020-12-08] MEDS: Apixaban 2.5 MG TAB PO SCH ×2 (09:18→20:24)
[2020-12-08] MEDS: Finasteride 5 MG TAB PO SCH (09:18)
[2020-12-08] MEDS: Docusate 100 MG CAP PO SCH ×2 (09:18→20:24)
[2020-12-08] MEDS: Gabapentin 300 MG CAP PO SCH ×3 (09:18→20:22)
[2020-12-08] MEDS: Ascorbic Acid 500 mg Chewable Tablet PO SCH (09:19)
[2020-12-08] MEDS: Furosemide 20 MG TAB PO SCH (09:20)
[2020-12-08] MEDS: Allopurinol 100 MG TAB PO SCH (09:20)
[2020-12-08] MEDS: Polyethylene Glycol 3350 17 GM Packet PO SCH ×2 (09:36→20:25)
[2020-12-08] MEDS: Rosuvastatin 20 MG TAB PO SCH (20:22)
[2020-12-08] MEDS: HYDROcodone/Acetaminophen 5/325 mg Tablet PO PRN (20:23)
[2020-12-08] MEDS: traZODone HCl 50 MG TAB PO SCH (20:24)
[2020-12-09] MEDS: HYDROcodone/Acetaminophen 5/325 mg Tablet PO PRN (01:31)
[2020-12-09] MEDS: Diazepam 5 MG TAB PO PRN (01:32)
[2020-12-09 06:20] LABS: #Eosinphils 0.1 thou/uL (0.0-0.7); #Lymphocytes 3.2 thou/uL (1.20-3.40); #Monocytes 0.8 thou/uL (0.11-0.59); #Neutrophils 3.1 thou/uL (1.40-6.50); %Basophils 0.2 % (0.0-1.0); %Eosinophils 1.4 % (0.0-10.0); %Lymphocytes 44.7 % (21.0-51.0); %Monocytes 10.7 % (0.0-10.0); Hemoglobin 11.2 g/dL (14.0-18.0); Mean Corpuscular HGB CONC 33.9 g/dL (32.0-36.0); Mean Corpuscular Hemoglobin 32.9 pg (27.0-31.0); Mean Corpuscular Volume 97.1 fL (78.0-98.0); Mean Platelet Volume 7.9 fL (7.4-10.4); Platelet Count 82 thou/uL (130-400); RBC Distribution Width 16.5 % (11.5-14.5); Red Blood Cell (RBC) Count 3.41 mill/uL (4.70-6.10); White Blood Cell (WBC) Count 7.2 thou/uL (4.8-10.8)
[2020-12-09 06:37] LABS: ALT (SGPT) Less than 7 U/L (8-55); AST (SGOT) 17 U/L (5-34); Albumin 3.3 g/dL (3.4-4.8); Alkaline Phosphatase 64 U/L (40-110); Anion Gap 8 mmol/L (10-20); BUN (Urea Nitrogen) 21 mg/dL (8.4-25.7); Bilirubin, Total 0.6 mg/dL (0.2-1.2); Calc. Creatinine Clearance 41 mL/min (70-130); Calcium 8.2 mg/dL (7.8-10.44); Carbon Dioxide 34 mmol/L (23-31); Chloride 96 mmol/L (98-107); Globulin 2.7 g/dL (2.4-3.5); Glucose 119 mg/dL (83-110); Potassium 4.5 mmol/L (3.5-5.1); Sodium 133 mmol/L (136-145)
[2020-12-09 08:44] LABS: Hemoglobin 11.1 g/dL (14.0-18.0); Platelet Count 81 thou/uL (130-400)
[2020-12-09] MEDS: Ascorbic Acid 500 mg Chewable Tablet PO SCH (09:13)
[2020-12-09] MEDS: Acetaminophen 325 MG TAB PO PRN (09:13)
[2020-12-09] MEDS: Gabapentin 300 MG CAP PO SCH ×3 (09:13→20:37)
[2020-12-09] MEDS: Apixaban 2.5 MG TAB PO SCH ×2 (09:13→20:36)
[2020-12-09] MEDS: Aspirin 81 mg Enteric Coated Tablet PO SCH (09:13)
[2020-12-09] MEDS: Finasteride 5 MG TAB PO SCH (09:14)
[2020-12-09] MEDS: Allopurinol 100 MG TAB PO SCH (09:14)
[2020-12-09] MEDS: Furosemide 20 MG TAB PO SCH (09:14)
[2020-12-09] MEDS: Docusate 100 MG CAP PO SCH ×2 (09:14→20:36)
[2020-12-09] MEDS: Polyethylene Glycol 3350 17 GM Packet PO SCH ×2 (09:14→20:38)
[2020-12-09] MEDS: AMOXicillin 250 MG CAP PO SCH ×2 (16:08→20:36)
[2020-12-09] MEDS ORDERED: Bisacodyl 10 MG SUPP PR PRN (18:36)
[2020-12-09] MEDS ORDERED: Senokot S 8.6-50 MG TAB PO PRN (18:36)
[2020-12-09] MEDS: Rosuvastatin 20 MG TAB PO SCH (20:36)
[2020-12-09] MEDS: traZODone HCl 50 MG TAB PO SCH (20:36)
[2020-12-10] MEDS: Acetaminophen 325 MG TAB PO PRN ×3 (04:48→18:44)
[2020-12-10 07:07] LABS: ALT (SGPT) Less than 7 U/L (8-55); AST (SGOT) 14 U/L (5-34); Alkaline Phosphatase 60 U/L (40-110); Anion Gap 9 mmol/L (10-20); BUN (Urea Nitrogen) 23 mg/dL (8.4-25.7); Bilirubin, Total 0.6 mg/dL (0.2-1.2); Calc. Creatinine Clearance 42 mL/min (70-130); Calcium 8.3 mg/dL (7.8-10.44); Carbon Dioxide 34 mmol/L (23-31); Chloride 97 mmol/L (98-107); Globulin 2.7 g/dL (2.4-3.5); Glucose 129 mg/dL (83-110); Potassium 4.5 mmol/L (3.5-5.1); Protein, Total 5.7 g/dL (5.8-8.1); Sodium 135 mmol/L (136-145)
[2020-12-10 07:25] LABS: Hemoglobin 10.8 g/dL (14.0-18.0); Mean Corpuscular HGB CONC 34.5 g/dL (32.0-36.0); Mean Corpuscular Hemoglobin 33.8 pg (27.0-31.0); Mean Corpuscular Volume 97.8 fL (78.0-98.0); Mean Platelet Volume 8.2 fL (7.4-10.4); Platelet Count 78 thou/uL (130-400); RBC Distribution Width 16.3 % (11.5-14.5); Red Blood Cell (RBC) Count 3.19 mill/uL (4.70-6.10); White Blood Cell (WBC) Count 4.8 thou/uL (4.8-10.8)
[2020-12-10] MEDS: Docusate 100 MG CAP PO SCH ×2 (08:29→20:43)
[2020-12-10] MEDS: Gabapentin 300 MG CAP PO SCH ×3 (08:30→20:42)
[2020-12-10] MEDS: Ascorbic Acid 500 mg Chewable Tablet PO SCH (08:30)
[2020-12-10] MEDS: Furosemide 20 MG TAB PO SCH (08:30)
[2020-12-10] MEDS: Aspirin 81 mg Enteric Coated Tablet PO SCH (08:30)
[2020-12-10] MEDS: Apixaban 2.5 MG TAB PO SCH ×2 (08:31→20:43)
[2020-12-10] MEDS: Finasteride 5 MG TAB PO SCH (08:31)
[2020-12-10] MEDS: AMOXicillin 250 MG CAP PO SCH ×3 (08:31→20:44)
[2020-12-10] MEDS: Polyethylene Glycol 3350 17 GM Packet PO SCH ×3 (08:31→20:45)
[2020-12-10] MEDS: Allopurinol 100 MG TAB PO SCH (08:31)
[2020-12-10 11:15] LABS: Band 4 % (5-11); Eosinophils 1 % (0-10); Lymphocytes 49 % (21-51); MDiff Complete? YES; Monocytes 8 % (0-10); Neutrophil 29 % (42-75); Platelet Morphology Comment Appears Decreased; RBC Morphology Normal; Reactive Lymphocytes 9 % (0-10)
[2020-12-10] MEDS ORDERED: Furosemide 20 MG/2 ML VIAL SLOW IVP SCH (15:15)
[2020-12-10] MEDS: Rosuvastatin 20 MG TAB PO SCH (20:42)
[2020-12-10] MEDS: traZODone HCl 50 MG TAB PO SCH (20:43)
[2020-12-11] MEDS: Acetaminophen 325 MG TAB PO PRN (02:03)
[2020-12-11 06:30] LABS: Band 2 % (5-11); Eosinophils 1 % (0-10); Hemoglobin 10.8 g/dL (14.0-18.0); Lymphocytes 28 % (21-51); MDiff Complete? YES; Mean Corpuscular HGB CONC 34.2 g/dL (32.0-36.0); Mean Corpuscular Hemoglobin 33.1 pg (27.0-31.0); Mean Corpuscular Volume 96.7 fL (78.0-98.0); Mean Platelet Volume 8.2 fL (7.4-10.4); Monocytes 12 % (0-10); Neutrophil 38 % (42-75); Platelet Count 76 thou/uL (130-400); Platelet Morphology Comment Appears Decreased; Reactive Lymphocytes 19 % (0-10); Red Blood Cell (RBC) Count 3.27 mill/uL (4.70-6.10); White Blood Cell (WBC) Count 4.7 thou/uL (4.8-10.8)
[2020-12-11 06:33] LABS: ALT (SGPT) Less than 7 U/L (8-55); AST (SGOT) 15 U/L (5-34); Albumin 3.2 g/dL (3.4-4.8); Alkaline Phosphatase 62 U/L (40-110); Anion Gap 9 mmol/L (10-20); BUN (Urea Nitrogen) 24 mg/dL (8.4-25.7); Bilirubin, Total 0.8 mg/dL (0.2-1.2); Calc. Creatinine Clearance 42 mL/min (70-130); Calcium 8.6 mg/dL (7.8-10.44); Carbon Dioxide 32 mmol/L (23-31); Chloride 95 mmol/L (98-107); Globulin 2.7 g/dL (2.4-3.5); Glucose 129 mg/dL (83-110); Protein, Total 5.9 g/dL (5.8-8.1); Sodium 132 mmol/L (136-145)
[2020-12-11] MEDS: Gabapentin 300 MG CAP PO SCH ×3 (08:48→20:41)
[2020-12-11] MEDS: Furosemide 20 MG TAB PO SCH (08:48)
[2020-12-11] MEDS: Aspirin 81 mg Enteric Coated Tablet PO SCH (08:48)
[2020-12-11] MEDS: Finasteride 5 MG TAB PO SCH (08:49)
[2020-12-11] MEDS: Apixaban 2.5 MG TAB PO SCH ×2 (08:49→20:41)
[2020-12-11] MEDS: Docusate 100 MG CAP PO SCH ×2 (08:49→20:41)
[2020-12-11] MEDS: Allopurinol 100 MG TAB PO SCH (08:49)
[2020-12-11] MEDS: Ascorbic Acid 500 mg Chewable Tablet PO SCH (08:49)
[2020-12-11] MEDS: AMOXicillin 250 MG CAP PO SCH ×3 (08:50→20:41)
[2020-12-11] MEDS: Polyethylene Glycol 3350 17 GM Packet PO SCH ×3 (08:50→20:41)
[2020-12-11] MEDS ORDERED: Furosemide 20 MG/2 ML VIAL SLOW IVP SCH (12:00)
[2020-12-11] MEDS: Rosuvastatin 20 MG TAB PO SCH (20:41)
[2020-12-11] MEDS: traZODone HCl 50 MG TAB PO SCH (20:42)
[2020-12-12 06:52] LABS: Hemoglobin 11.4 g/dL (14.0-18.0); Mean Corpuscular HGB CONC 33.2 g/dL (32.0-36.0); Mean Corpuscular Hemoglobin 32.1 pg (27.0-31.0); Mean Corpuscular Volume 96.7 fL (78.0-98.0); Mean Platelet Volume 8.5 fL (7.4-10.4); Platelet Count 84 thou/uL (130-400); Red Blood Cell (RBC) Count 3.54 mill/uL (4.70-6.10); White Blood Cell (WBC) Count 5.3 thou/uL (4.8-10.8)
[2020-12-12 06:53] LABS: Anion Gap 12 mmol/L (10-20); BUN (Urea Nitrogen) 23 mg/dL (8.4-25.7); Calc. Creatinine Clearance 40 mL/min (70-130); Calcium 8.8 mg/dL (7.8-10.44); Carbon Dioxide 33 mmol/L (23-31); Chloride 95 mmol/L (98-107); Glucose 124 mg/dL (83-110); Sodium 136 mmol/L (136-145)
[2020-12-12] MEDS ORDERED: Furosemide 20 MG TAB PO SCH ×2 (09:00→14:00)
[2020-12-12 09:21] LABS: Lymphocytes 14 % (21-51); Neutrophil 24 % (42-75)
[2020-12-12 09:22] LABS: Monocytes 13 % (0-10); Reactive Lymphocytes 48 % (0-10)
[2020-12-12 09:25] LABS: Polychromasia SLIGHT = 2-3 cells (100X) (0-2/hpf)
[2020-12-12 09:26] LABS: Elliptocytes SLIGHT = 2-5 cells (100X) (0-1/hpf); Platelet Morphology Comment Appears Decreased
[2020-12-12] MEDS: Acetaminophen 325 MG TAB PO PRN (09:30)
[2020-12-12 09:31] LABS: MDiff Complete? YES
[2020-12-12] MEDS: Allopurinol 100 MG TAB PO SCH (09:31)
[2020-12-12] MEDS: Gabapentin 300 MG CAP PO SCH ×2 (09:31→13:03)
[2020-12-12] MEDS: Ascorbic Acid 500 mg Chewable Tablet PO SCH (09:31)
[2020-12-12] MEDS: Docusate 100 MG CAP PO SCH (09:31)
[2020-12-12] MEDS: Finasteride 5 MG TAB PO SCH (09:31)
[2020-12-12] MEDS: Apixaban 2.5 MG TAB PO SCH (09:32)
[2020-12-12] MEDS: Aspirin 81 mg Enteric Coated Tablet PO SCH (09:32)
[2020-12-12] MEDS: Polyethylene Glycol 3350 17 GM Packet PO SCH ×2 (09:32→15:05)
[2020-12-12 09:33] LABS: Platelet Count 86 thou/uL (130-400)
[2020-12-12] MEDS: AMOXicillin 250 MG CAP PO SCH ×2 (09:33→15:06)
[2020-12-12] MEDS: Furosemide 20 MG TAB PO SCH (09:36)
[2020-12-12 16:23] VITALS: BP 101/64; TEMP 98.5
[2020-12-13] MEDS ORDERED: Transdermal Patch Removal TOP SCH (02:00)
[2020-12-13] MEDS ORDERED: Lidocaine 5% Patch TD SCH (14:00)
== END 2020-12-12 17:51 | DRG 299 ==
LOC: ERS 11:50 → ERHOLD 15:26 → T4-A 17:03
PROVIDERS: ADMIT Internal Medicine; ATTEND Family Medicine
DX: I82.412 Acute embolism and thrombosis of left femoral vein (principal); I50.23 Acute on chronic systolic (congestive) heart failure; I13.0 Hypertensive heart and chronic kidney disease with heart failure and stage 1 through stage 4 chronic kidney disease, or unspecified chronic kidney disease; E87.1 Hypo-osmolality and hyponatremia; F05 Delirium due to known physiological condition; R04.2 Hemoptysis; N30.90 Cystitis, unspecified without hematuria; B96.89 Other specified bacterial agents as the cause of diseases classified elsewhere; I48.91 Unspecified atrial fibrillation; N18.30 Chronic kidney disease, stage 3 unspecified; I25.10 Atherosclerotic heart disease of native coronary artery without angina pectoris; E11.40 Type 2 diabetes mellitus with diabetic neuropathy, unspecified; E11.22 Type 2 diabetes mellitus with diabetic chronic kidney disease; G89.29 Other chronic pain; M54.9 Dorsalgia, unspecified; E78.5 Hyperlipidemia, unspecified; N40.0 Benign prostatic hyperplasia without lower urinary tract symptoms; S80.11XA Contusion of right lower leg, initial encounter; K59.00 Constipation, unspecified; Z95.1 Presence of aortocoronary bypass graft; Z90.49 Acquired absence of other specified parts of digestive tract; Z88.1 Allergy status to other antibiotic agents; Z88.2 Allergy status to sulfonamides; Z87.891 Personal history of nicotine dependence; I25.2 Old myocardial infarction; Z79.899 Other long term (current) drug therapy; Z79.82 Long term (current) use of aspirin; Z79.84 Long term (current) use of oral hypoglycemic drugs; Z79.01 Long term (current) use of anticoagulants; Z85.89 Personal history of malignant neoplasm of other organs and systems; Z86.718 Personal history of other venous thrombosis and embolism; Z86.711 Personal history of pulmonary embolism
CPT/HCPCS: 36415; 36416; 71045; 80048; 80053; 80061; 81001; 81015; 83036; 83605; 83880; 84145; 84484; 85014; 85018; 85025; 85049; 85610; 85730; 87040; 87077; 87086; 93005; 96365; 96366; 96367; J0696; J1940; J3370; J3490